=== PATIENT | female | born 1995 | race African-American/Black ===

== ENCOUNTER 2017-12-12 00:30 | Emergency (ER) | payer MEDICAID, SELFPAY ==
[2017-12-12 00:37] VITALS: BP 132/86; PULSE 89; RESP 16; TEMP 36.5; O2SAT 98
[2017-12-12 01:03] LABS: Bilirubin Small (Negative); Blood Trace-intact (Negative); Clarity Sl Cloudy; Glucose Negative (Negative); Ketones Trace mg/dL (Negative); Leukocyte Esterase Negative (Negative); Nitrite Negative (Negative); Specific Gravity >= 1.030 (1.005-1.025); Urobilinogen 0.2 EU/dL (Up TO 0.2); pH 5.5 (5-8)
[2017-12-12 01:05] LABS: HCT 34.9 % (36.0-46.0); Mean Corp. HGB Concentration 31.5 g/dL (32.0-36.0); Mean Corpuscular Volume 66.5 fL (80-95); Mean Platelet Volume 10.1 fL (8.0-11.0); Platelet Count 387 x1000/uL (130-400); RBC 5.25 m/cumm (4.00-5.20); RBC Distribution Width 18.3 % (11.7-14.6); White Blood Cell Count 12.44 k/cumm (4.4-10.8)
--- NOTE | 2017-12-12 01:12 | ED.GENADUL ---
Disposition Clinical Impression: Abdominal pain Disposition: HOME Condition: Good Instructions: Abdominal Pain (ED) Additional Instructions: You may use Tylenol or Motrin for pain if needed. Stay hydrated. Follow-up with primary care in the next few days if not better. Return to the ED if you develop fever, vomiting, worsening pain. Referrals: [facility] [Provider Group] Medical Decision Making - Lab Data Results reviewed for labs ordered during visit: Yes - Radiology Data Radiology results: report reviewed - Medical Decision Making Patient here with onset of left sided abdominal pain that appears to be more flank than anything. She does describe it to be colicky in nature. She does not have fever, nausea, vomiting, urinary symptoms. However, she does have some mild left CVAT. Consider kidney stones and will get urine, labs, and stone study. Urine test is negative. Patient's laboratory studies are unremarkable. CBC and chemistry essentially normal. Urinalysis negative for infection. CT scan negative for any acute disease. She does have some sludge in the gallbladder but her pain is all left-sided not right. She is not tender in the right upper quadrant. She does have evidence of diverticuli but no evidence of acute diverticulitis. Patient does feel better after Toradol. Patient to be discharged home to use Tylenol or Motrin as needed for pain. Follow-up with primary care in a couple days if not doing better. Return to ED for fever, vomiting, worsening pain. History of Present Illness - General Chief complaint: Abd Prob Stated complaint: DAVID Time Seen by Provider: 12/12/17 00:49 Source: patient Mode of arrival: EMS Limitations: no limitations - History of Present Illness Initial comments: [facility]. Patient reports that she was fine during the day. This evening around 8 PM she developed left-sided flank pain that she describes as colicky and pressure-like in nature. She has no associated symptoms with it. At times the pain is very intense. She has no urinary symptoms. She has no pelvic pain or vaginal complaints. She denies being . She has no history of kidney stones. - Related Data Unknown [No Known Home Meds] 12/12/17 Allergies Allergy/AdvReac Type Severity Reaction Status Date / Time No Known Allergies Allergy Unverified 12/12/17 00:36 Review of Systems Constitutional: denies: chills, diaphoresis, fever Eyes: denies: eye discharge, vision change ENT: denies: ear pain, throat pain, congestion Respiratory: denies: cough, shortness of breath Cardiovascular: denies: chest pain, syncope Gastrointestinal: abdominal pain. denies: nausea, vomiting, diarrhea Genitourinary: denies: urgency, dysuria, frequency Musculoskeletal: denies: back pain Skin: denies: rash Neurological: denies: headache, weakness, numbness Past Medical History - Past Medical History Medical history: asthma Surgical history: no surgical history - Social History Smoking status: current everyday smoker Alcohol use: none Drug use: none General Exam - General Limitations: no limitations General appearance: alert, in no apparent distress, obese - Head Head exam: Present: atraumatic, normocephalic - Eye Eye exam: Present: normal apperance - Neck Neck exam: Present: normal inspection - Respiratory Respiratory exam: Present: normal lung sounds bilaterally - Cardiovascular Cardiovascular Exam: Present: regular rate, normal rhythm, normal heart sounds - GI/Abdominal GI/Abdominal exam: Present: soft, tenderness (upper left lower quadrant into left mid flank). Absent: distended, guarding, rebound - Extremities Exam Extremities exam: Present: normal inspection. Absent: tenderness, calf tenderness - Back Exam Back exam: Present: normal inspection, CVA tenderness (L). Absent: CVA tenderness (R) - Neurological Exam Neurological exam: Present: alert, oriented X3, CN II-XII intact. Absent: motor sensory deficit - Psychiatric Psychiatric exam: Present: normal affect, normal mood - Skin Skin exam: Present: warm, dry, intact Course Vital Signs - 24 hr 08//18 00:37 Temperature 97.7 F Pulse 89 Respiratory 16 Rate Blood Pressure 132/86 Pulse Oximetry 98
--- NOTE | 2017-12-12 01:15 | DI.RPTCT_ITS ---
SYMPTOM/DIAGNOSIS: LT FLANK PAIN ABDOMEN AND PELVIC CT: CT examination of the abdomen and pelvis was performed without contrast administration. Images obtained through the lung bases are unremarkable. Liver , spleen and pancreas have an unremarkable noncontrast appearance. There appears to be cholelithiasis. No biliary dilatation is seen. Adrenals and kidneys appear normal. No evidence of hydronephrosis, nephrolithiasis or ureterolithiasis. Urinary bladder is empty. No abdominal wall hernia is seen. No abdominal or pelvic adenopathy is seen. Abdominal aorta is of normal diameter. Appendix appears normal. There is a focal area of increased fat attenuation adjacent to the colon at the descending sigmoid junction consistent with focal diverticulitis. The findings are less prominent than apparent diverticulitis identified at approximately this same site on previous CT of 06/01/17. A small quantity of free pelvic fluid noted. 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 CONCLUSION: Findings consistent with acute diverticulitis as described above.
[2017-12-12 01:18] LABS: ALT 16 U/L (12-78); AST 16 U/L (15-37); Alkaline Phosphatase 65 U/L (46-116); Anion Gap 8.1 mmol/L (3-11); BUN 9 mg/dL (7-18); Bilirubin, Total 0.1 mg/dL (0.2-1.0); CO2 23.9 mmol/L (21.0-32.0); CREATININE 0.76 mg/dL (0.55-1.02); Calcium 8.6 mg/dL (8.5-10.1); Chloride 102 mmol/L (98-107); Glucose 120 mg/dL (70-100); Potassium 3.5 mmol/L (3.5-5.1); Sodium 134 mmol/L (136-145); Total Protein 8.1 g/dL (6.4-8.2)
[2017-12-12 01:19] LABS: Lipase 87 U/L (73-393)
[2017-12-12] MEDS: Lactated Ringers 1,000 ML 1000 ML IV (01:19)
[2017-12-12] MEDS: Ketorolac 15 MG/ML VIAL 30 MG IVP (01:20)
[2017-12-12 01:22] LABS: Bacteria Few HPF (Negative); Crystals Many Calcium Oxalate HPF (Negative); Epithelial Cells Many HPF (Negative); Mucus Heavy (Negative); RBC 0-2 (0-2); WBC 0-2 HPF (0-5)
[2017-12-12 01:23] LABS: C & S Indicated? No; Casts Negative LPF (Negative)
--- NOTE | 2017-12-12 02:11 | DI.VRAD_ITS ---
EXAM: CT Abdomen and Pelvis Without Intravenous Contrast EXAM DATE/TIME: 12/12/2017 1:00 AM CLINICAL HISTORY: 22 years old, female; Pain; Abdominal pain; Flank; Left lower quadrant (llq); Patient HX: Llq and flank pain x 5 hours TECHNIQUE: Axial computed tomography images of the abdomen and pelvis without intravenous contrast. All CT scans at this facility use at least one of these dose optimization techniques: automated exposure control; mA and/or kV adjustment per patient size (includes targeted exams where dose is matched to clinical indication); or iterative reconstruction. Coronal and sagittal reformatted images were created and reviewed. COMPARISON: CT - ABD PELVIS WITH CONTRAST 06/01/2017 4:46 PM FINDINGS: Lower thorax: No acute findings. ABDOMEN: Liver: Normal. No mass. Gallbladder and bile ducts: There has been interval formation of gravel or sludge within the gallbladder. Pancreas: Normal. No ductal dilation. Spleen: Normal. No splenomegaly. Adrenals: Normal. No mass. Kidneys and ureters: Normal. No hydronephrosis. Stomach and bowel: Mild diverticulosis coli is present predominantly in the lower descending and sigmoid regions. No acute diverticulitis is detected. Appendix: No evidence of appendicitis. PELVIS: Bladder: Unremarkable as visualized. Reproductive: Unremarkable as visualized. ABDOMEN and PELVIS: Intraperitoneal space: Minimal fluid is seen in the posterior cul-de-sac thought possibly physiologic in nature. Bones/joints: No acute fracture. No dislocation. Soft tissues: Unremarkable. Vasculature: Normal. No abdominal aortic aneurysm. Lymph nodes: Normal. No enlarged lymph nodes. IMPRESSION: No acute findings are detected. Dictated and Authenticated by: Zac Her MD. Ordering:RACHEL VALENZUELA MD
[2017-12-12 02:30] VITALS: BP 133/78; PULSE 71; RESP 16; TEMP 36.6; O2SAT 99
--- NOTE | 2017-12-12 06:35 | NUR.NOTE ---
Nursing Note: Pt had been waiting in ER waiting room to catch the AM shuttle via [facility] to [place]. Received call from access that pt was waiting and the shuttle did not stop as expected. Given a voucher for a breakfast tray in the dining room, will ask for Care Managers assistance this AM in getting pt a ride home.
--- NOTE | 2017-12-12 07:06 | PDOC.ERCMPRO ---
Care Management Progress Note 12/12-Patient needs transportation home. Called [facility] [employer] and spoke with Nolberto. Nolberto stated that [facility] [employer] [facility] would be here around 8 am to transport her home. [facility] will pay for taxi. Patient is aware and will wait in the ED waiting room.
== END 2017-12-12 02:29 | disposition home or self-care (01) ==
LOC: ER 02-22 04:44
PROVIDERS: Emergency Provider Emergency Medicine; PCP Nurse Practitioner Family
DX: R10.9 Unspecified abdominal pain (principal)
CPT/HCPCS: 36415; 80053; 83690; 85027; 96361; 96374; 99284; 74176; 81003; 81015; J1885

== ENCOUNTER 2018-01-07 06:28 | Emergency (ER) | payer MEDICAID, SELFPAY ==
[2018-01-07 06:29] VITALS: BP 111/91; PULSE 100; RESP 18; TEMP 36.7; O2SAT 100
--- NOTE | 2018-01-07 06:33 | NUR.NOTE ---
pt states is supposed to take depression pills and pills for schizophrenia- has not taken these since 02/2018 when moved from [place].
--- NOTE | 2018-01-07 06:37 | DI.CT_ITS ---
SYMPTOMS/DIAGNOSIS: LT GREATER THAN RT LOWER QUAD ABD PAIN CT SCAN OF THE ABDOMEN AND PELVIS: CT abdomen and pelvis was performed following the uneventful administration of intravenous contrast material. The visualized lung bases are clear. The liver, spleen, pancreas and adrenal glands are unremarkable. There are stones seen within the gallbladder. No biliary ductal dilatation. The portal and superior mesenteric veins are patent. The kidneys are unremarkable as is the urinary bladder. The reproductive organs are unremarkable. There is a trace amount of free fluid in the cul-de-sac which is likely physiologic. There is diverticulosis of the colon but no evidence of acute diverticulitis. The bowel is unremarkable. No findings to suggest an acute appendicitis are present. A normal appendix is seen in the pelvis. No significant adenopathy or pneumoperitoneum is present. The bones appear intact. IMPRESSION: Trace amount of free fluid in the cul-de-sac which may be physiologic. Otherwise negative examination.
--- NOTE | 2018-01-07 06:38 | W.ED.GENAD ---
Discharge Plan Disposition Patient Disposition: STILL A PATIENT Condition: Improving Discharge Details Chief Complaint: Abd Prob Clinical Impression: Ovarian cyst Reason For Visit: DAVID Primary Care Provider: Chandni Finn ED Provider: Jack Paul Home Meds and New Rx's Prescriptions: No Action No Known Home Meds RF: 0 Medical Decision Making MDM Narrative Medical decision making narrative: 22-year-old female presents with the onset yesterday of lower quadrant abdominal pain and vomiting. She is afebrile, moderately tender in the abdomen. Differential diagnosis includes colitis, enteritis, ileus. Patient had IV access established, was given fluids and antiemetics, referred for laboratory testing and CT images. Initial diagnostic studies revealed a white blood cell count of 11, unremarkable chemistries, normal lipase. CT scan reveals trace free fluid and probable ovarian cyst. No other acute findings per patient had mild itching without rash after contrast infusion and was administered benadryl. She is improving with medications. Stable for discharge home. Discussed with her home management, as well as return precautions to the ER. ECG Data Attestation: I personally reviewed and interpreted this ECG (s) as follows: Interpretation: Normal sinus rhythm, the rate is 86, QRS is narrow, no ST segment elevation HPI - General Adult General Mode of arrival: EMS. Date/Time Provider Initiated Documentation: 01/07/18 06:37. Limitations to Documentation: no limitations. Information obtained by: patient. History of Present Illness described as moderate, Quality is described as aching, and is localized to the abdomen. Patient reports no radiation. Patient started experiencing this day(s) and it has been intermittent. Patient notes nausea/vomiting. Patient did receive the following treatments prior to arrival, none HPI Narrative: Abdominal pain: 22-year-old female presents with what she states is the gradual onset of lower, aching, nonradiating abdominal pain yesterday with associated intermittent episodes of nonbilious, nonbloody emesis. She did not have a fever, she denies vaginal discharge or bleeding. States she has had similar pain in the past one was my colon Related Data Home Medications Medication Instructions Recorded Confirmed Unknown [No Known Home Meds] 12/12/17 01/07/18 Allergies Allergy/AdvReac Type Severity Reaction Status Date / Time No Known Allergies Allergy Unverified 01/07/18 06:33 General Stated Complaint: Abd Prob MARIELLA: 3 Review of Systems Review of Systems 8 systems reviewed and otherwise negative PFSH Social History Smoking/Tobacco Use Status: Current every day Exam Narrative Exam Narrative: GEN: awake, alert, oriented 3. Pleasant, well groomed, interactive. HEAD: Normocephalic, atraumatic ENT: Mucous membranes moist, oropharynx unremarkable, External ear exam unremarkable EYES: PERRL, EOMI NECK: Full ROM, no RENETTA, no menigismus CHEST/RESP: Nontender, clear to auscultation bilateral, no wheeze/rhonchi/rales CARDIOVASCULAR: RRR, no murmur, rub bryan. 2+ Rad pulse bilateral ABDOMEN: Soft, mild diffuse tenderness to palpation without rebound, no mass. +Bowel sounds EXT: Full ROM, no edema, no rash Neuro: Grossly normal neurologic exam, conversant, interactive. Psych: Speech fluent, thoughts congruent, affect normal Course Vital Signs Temperature 36.7 C 01/07/18 06:29 Pulse 100 H 01/07/18 06:29 Respiratory Rate 18 01/07/18 06:29 Blood Pressure 111/91 H 01/07/18 06:29 Pulse Oximetry 100 01/07/18 06:29 Temperature 36.7 C 01/07/18 06:29 Pulse 100 H 01/07/18 06:29 Respiratory Rate 18 01/07/18 06:29 Blood Pressure 111/91 H 01/07/18 06:29 Pulse Oximetry 100 01/07/18 06:29
--- NOTE | 2018-01-07 06:43 | ED.GENADUL_ITS ---
Discharge Plan Disposition Patient Disposition: STILL A PATIENT Condition: Improving Discharge Details Chief Complaint: Abd Prob Clinical Impression: Ovarian cyst Reason For Visit: DAVID Primary Care Provider: Chandni Finn ED Provider: Jack Paul Home Meds and New Rx's Prescriptions: No Action No Known Home Meds RF: 0 Medical Decision Making MDM Narrative Medical decision making narrative: 22-year-old female presents with the onset yesterday of lower quadrant abdominal pain and vomiting. She is afebrile, moderately tender in the abdomen. Differential diagnosis includes colitis, enteritis, ileus. Patient had IV access established, was given fluids and antiemetics, referred for laboratory testing and CT images. Initial diagnostic studies revealed a white blood cell count of 11, unremarkable chemistries, normal lipase. CT scan reveals trace free fluid and probable ovarian cyst. No other acute findings per patient had mild itching without rash after contrast infusion and was administered benadryl. She is improving with medications. Stable for discharge home. Discussed with her home management, as well as return precautions to the ER. ECG Data Attestation: I personally reviewed and interpreted this ECG (s) as follows: Interpretation: Normal sinus rhythm, the rate is 86, QRS is narrow, no ST segment elevation HPI - General Adult General Mode of arrival: EMS . Date/Time Provider Initiated Documentation: 01/07/18 06:37 . Limitations to Documentation: no limitations . Information obtained by: patient . History of Present Illness described as moderate, Quality is described as aching, and is localized to the abdomen. Patient reports no radiation. Patient started experiencing this day(s) and it has been intermittent. Patient notes nausea/vomiting. Patient did receive the following treatments prior to arrival, none HPI Narrative: Abdominal pain: 22-year-old female presents with what she states is the gradual onset of lower, aching, nonradiating abdominal pain yesterday with associated intermittent episodes of nonbilious, nonbloody emesis. She did not have a fever, she denies vaginal discharge or bleeding. States she has had similar pain in the past one was my colon Related Data Home Medications Medication Instructions Recorded Confirmed Unknown [No Known Home Meds] 12/12/17 01/07/18 Allergies Allergy/AdvReac Type Severity Reaction Status Date / Time No Known Allergies Allergy Unverified 01/07/18 06:33 General Stated Complaint: Abd Prob MARIELLA: 3 Review of Systems Review of Systems 8 systems reviewed and otherwise negative PFSH Social History Smoking/Tobacco Use Status: Current every day Exam Narrative Exam Narrative: GEN: awake, alert, oriented 3. Pleasant, well groomed, interactive. HEAD: Normocephalic, atraumatic ENT: Mucous membranes moist, oropharynx unremarkable, External ear exam unremarkable EYES: PERRL, EOMI NECK: Full ROM, no RENETTA, no menigismus CHEST/RESP: Nontender, clear to auscultation bilateral, no wheeze/rhonchi/rales CARDIOVASCULAR: RRR, no murmur, rub bryan. 2+ Rad pulse bilateral ABDOMEN: Soft, mild diffuse tenderness to palpation without rebound, no mass. + Bowel sounds EXT: Full ROM, no edema, no rash Neuro: Grossly normal neurologic exam, conversant, interactive. Psych: Speech fluent, thoughts congruent, affect normal Course Vital Signs Temperature 36.7 C 01/07/18 06:29 Pulse 100 H 01/07/18 06:29 Respiratory Rate 18 01/07/18 06:29 Blood Pressure 111/91 H 01/07/18 06:29 Pulse Oximetry 100 01/07/18 06:29 Temperature 36.7 C 01/07/18 06:29 Pulse 100 H 01/07/18 06:29 Respiratory Rate 18 01/07/18 06:29 Blood Pressure 111/91 H 01/07/18 06:29 Pulse Oximetry 100 01/07/18 06:29
[2018-01-07 06:55] LABS: Abs Immature Grans 0.01 k/cumm (0.0-0.09); Absolute Basophil Count 0.02 k/cumm (0.0-0.2); Absolute Eosinophil Count 0.28 k/cumm (0.0-0.7); Absolute Monocyte Count 0.73 k/cumm (0.11-0.7); Absolute Neutrophil Count 6.94 k/cumm (1.2-6.7); Basophils % 0.2; Eosinophils % 2.5; HCT 33.2 % (36.0-46.0); HGB 10.7 g/dL (12.0-15.5); Immature Grans % 0.1; Lymphocytes % 27.5; Mean Corp. HGB Concentration 32.2 g/dL (32.0-36.0); Mean Corpuscular Hemoglobin 21.9 pg (27.0-33.0); Mean Platelet Volume 9.7 fL (8.0-11.0); Monocytes % 6.6; Neutrophils % 63.1; Platelet Count 328 x1000/uL (130-400); RBC 4.88 m/cumm (4.00-5.20); RBC Distribution Width 18.8 % (11.7-14.6)
[2018-01-07] MEDS: Ondansetron 4 MG/2 ML VIAL IVP (06:55)
[2018-01-07] MEDS: Ketorolac 30 MG/ML VIAL IVP (06:55)
[2018-01-07] MEDS: Normal Saline 1,000 ML 1000 ML IV (06:56)
[2018-01-07 06:57] LABS: Absolute Lymphocyte Count 3.03 k/cumm (1.2-3.4)
[2018-01-07 07:08] LABS: Bilirubin Negative (Negative); Blood Negative (Negative); Clarity Clear; Glucose Negative (Negative); Ketones Trace mg/dL (Negative); Leukocyte Esterase Negative (Negative); Nitrite Negative (Negative); Specific Gravity 1.025 (1.005-1.025); Urobilinogen 0.2 EU/dL (Up TO 0.2)
[2018-01-07 07:18] LABS: ALT 18 U/L (12-78); AST 12 U/L (15-37); Albumin 3.1 g/dL (3.4-5.0); Alkaline Phosphatase 81 U/L (46-116); Anion Gap 8.2 mmol/L (3-11); BUN 11 mg/dL (7-18); CO2 26.8 mmol/L (21.0-32.0); CREATININE 0.71 mg/dL (0.55-1.02); Calcium 8.6 mg/dL (8.5-10.1); Chloride 104 mmol/L (98-107); Glucose 90 mg/dL (70-100); Lipase 170 U/L (73-393); Potassium 3.9 mmol/L (3.5-5.1); Sodium 139 mmol/L (136-145)
[2018-01-07 07:20] LABS: Bilirubin, Total < 0.1 mg/dL (0.2-1.0)
[2018-01-07] MEDS: Omnipaque 350 MG/ML 100 ML BTL IJ (07:21)
[2018-01-07] MEDS: diphenhydrAMINE 50 MG/ML VIAL 25 MG IVP (07:30)
--- NOTE | 2018-01-07 07:32 | DI.VRAD_ITS ---
EXAM: CT Abdomen and Pelvis With Intravenous Contrast EXAM DATE/TIME: 01/07/2018 6:39 AM. CLINICAL HISTORY: 22 years old, female; Pain; Abdominal pain; Other: Lt greater than rt lower quad abd pain TECHNIQUE: Axial computed tomography images of the abdomen and pelvis with intravenous contrast. All CT scans at this facility use at least one of these dose optimization techniques: automated exposure control; mA and/or kV adjustment per patient size (includes targeted exams where dose is matched to clinical indication); or iterative reconstruction. Coronal and sagittal reformatted images were created and reviewed. CONTRAST: 100 mL of omni 350 administered intravenously. COMPARISON: No relevant prior studies available. FINDINGS: Lung bases: Unremarkable. No mass. No consolidation. ABDOMEN: Liver: Unremarkable. No mass. Gallbladder and bile ducts: Cholelithiasis is present without evidence for gallbladder wall thickening. No ductal dilation. Pancreas: Unremarkable. No mass. No ductal dilation. Spleen: Unremarkable. No splenomegaly. Adrenals: Unremarkable. No mass. Kidneys and ureters: Unremarkable. No solid mass. No hydronephrosis. Stomach and bowel: Unremarkable. No obstruction. No mucosal thickening. PELVIS: Appendix: No findings to suggest acute appendicitis. Bladder: Unremarkable. No mass. Reproductive: Unremarkable as visualized. ABDOMEN and PELVIS: Intraperitoneal space: Trace free fluid is present which is nonspecific but may reflect physiologic fluid or rupture of an ovarian cyst or follicle. No free air. Bones/joints: No acute fracture. No dislocation. Soft tissues: Unremarkable. Vasculature: Unremarkable. No abdominal aortic aneurysm. Lymph nodes: Unremarkable. No enlarged lymph nodes. IMPRESSION: Trace free pelvic fluid. Dictated and Authenticated by: Sina Bueno MD. Ordering:VARGAS MERAZ MD
[2018-01-07 08:22] VITALS: BP 130/84; PULSE 81; RESP 16; TEMP 37; O2SAT 100
--- NOTE | 2018-01-07 10:47 | CMPROGNOTE_ITS ---
Care Management Progress Note 01/07/18-Pt seen for abdominal pain by Dr. Nicholas Paul today. F/U within one week request sent to [facility] as Raji Finn is PCP.
== END 2018-01-07 08:17 | disposition still patient (30) ==
PROVIDERS: Emergency Provider Emergency Medicine; PCP Nurse Practitioner Family
DX: N83.209 Unspecified ovarian cyst, unspecified side (principal); R11.2 Nausea with vomiting, unspecified
CPT/HCPCS: 36415; 80053; 81025; 83690; 93005; 96361; 96374; 96375; 99285; 74177; 81003; 85025; 93010; 99284; J2405; J3490

== ENCOUNTER 2019-03-22 18:17 | Emergency (ER) | payer MEDICAID, SELFPAY ==
[2019-03-22 18:24] VITALS: BP 138/80; PULSE 84; TEMP 36.8; O2SAT 100
--- NOTE | 2019-03-22 18:48 | W.ED.GENAD ---
Discharge Plan Disposition Patient Disposition: HOME Condition: Improving Discharge Details Chief Complaint: Abd Prob Clinical Impression: Cholecystolithiasis Primary Care Provider: Chandni Finn ED Provider: Chandni Corona Home Meds and New Rx's Prescriptions: New oxycodone 5 mg capsule 5 mg PO Q6H PRN (Reason: pain) Qty: 7 RF: 0 ondansetron HCl [Zofran] 4 mg tablet 4 mg PO Q8H PRN (Reason: nausea and vomiting) Qty: 10 RF: 0 amoxicillin-pot clavulanate [Augmentin] 875-125 mg tablet 1 tab PO Q12H Qty: 20 RF: 0 Discharge Instructions Additional Instructions: Drink clear liquid only. No food or drink by mouth after midnight tomorrow. Please arrive at same-day surgery at 9 AM on March 24 Take antibiotic as prescribed. Use pain medication if needed for severe pain. This will cause drowsiness, can cause constipation, do not drive, drink alcohol, or work while taking this medication Use nausea medication as prescribed Return to the emergency room for any worsening, concerns or increase in pain sooner if needed as discussed Referrals: Sruthi Keene DO [OSTEOPATHIC DOCTOR] - Discharge Data Discharge Date/Time-TO BE ENTERED AT DEPARTURE: 03/22/19 22:30 Medical Decision Making Is a 24-year-old woman who presents to the emergency room this evening for onset of abdominal pain which began this morning. Patient reports epigastric abdominal discomfort which is sharp and very painful. Patient reports a waxing and waning quality to it but no full resolution of the pain. Patient reports several episodes of vomiting since onset of pain. Patient reports after attempting to eat or drink she has increase in her pain and vomiting. Patient denies fevers or chills. Denies associated diarrhea. Patient reports no history of similar. Patient denies recent nasal congestion, sore throat or ear pain. Patient denies significant recent alcohol ingestion. Patient denies daily medications. Denies urinary changes. On exam patient has moderate epigastric and right upper quadrant tenderness. Patient has no significant rebound. Patient has decreased bowel sounds diffusely. CT of patient's abdomen, noncontrast as patient reports allergy to IV dye in the past, ordered as well as appropriate labs. Pain management offered specifically morphine and Zofran. CT reveals FINDINGS: Lack of IV contrast does limit evaluation of the abdominal and pelvic organs. The lung bases are clear. Unenhanced liver, spleen, pancreas and adrenal glands are unremarkable. There are stones again seen in the gallbladder which is distended. No pericholecystic fluid or obvious biliary ductal dilatation is present. The kidneys, ureters and bladder are unremarkable. The reproductive organs are unremarkable. The abdominal aorta is of normal caliber. No significant abdominal or pelvic adenopathy, ascites or pneumoperitoneum is present. There is diverticulosis seen in the colon but no evidence of acute diverticulitis is seen. The remainder of the bowel is unremarkable. There is a normal appendix present. No acute osseous abnormality is identified. IMPRESSION: Cholelithiasis within a distended gallbladder. If there is concern for acute cholecystitis, ultrasound may be obtained. Patient's labs reveal mild leukocytosis with no significant electrolyte abnormalities. Normal bilirubin. No significant transaminase elevation. Given patient's right upper quadrant and epigastric pain on exam which persists through serial exams I spoke with on-call surgeon Dr. Sruthi Keene, who evaluated patient in the emergency room. She will schedule elective surgery on Sunday for reevaluation as patient's preference at this time is not to be admitted. Surgeon recommendation was Augmentin as well as pain medication and nausea medication to control symptoms until patient is able to have her gallbladder removed. The patient was stable and requested discharge. Prior to discharge, my usual and customary return precautions were reviewed with the patient - this included follow-up instructions and reasons to return to the Emergency Department if conditions worsens, does not improve as expected, or other new concerns arise. HPI General Date/Time Provider Initiated Documentation: 03/22/19 18:26. HPI Narrative: Is a 24-year-old patient presents the emergency room for abdominal pain. Patient reports she awoke this morning with epigastric discomfort. Patient reports persistent abdominal pain which is very sharp, waxes and wanes but does not entirely resolve in the upper mid abdomen. Patient does report mild radiation to the back. Patient does report a mild cough. Patient reports vomiting several times today associated with nausea. Denies changes in bowel movements. No diarrhea associated. Denies fevers, chills. Patient denies nasal congestion, sore throat or ear pain. Patient has attempted to eat several times but has continued to vomit after attempting food or fluids. Patient denies urinary urgency, frequency or dysuria. Patient denies abdominal bloating. Patient denies any obvious sick exposures, or household ill contacts. Related Data Home Medications Medication Instructions Recorded Confirmed amoxicillin-pot clavulanate 1 tab PO Q12H #20 tab 03/22/19 [Augmentin] ondansetron HCl [Zofran] 4 mg PO Q8H PRN #10 tab 03/22/19 oxycodone 5 mg PO Q6H PRN #7 cap 03/22/19 Previous Rx's Medication Instructions Recorded amoxicillin-pot clavulanate 1 tab PO Q12H #20 tab 03/22/19 [Augmentin] ondansetron HCl [Zofran] 4 mg PO Q8H PRN #10 tab 03/22/19 oxycodone 5 mg PO Q6H PRN #7 cap 03/22/19 Allergies Allergy/AdvReac Type Severity Reaction Status Date / Time iohexol [From Omnipaque] Allergy Intermediate Itching Unverified 03/22/19 18:28 General Stated Complaint: Abd Prob MARIELLA: 3 Review of Systems All systems reviewed & are unremarkable except as noted in HPI and below Constitutional Constitutional: Denies chills, Denies fatigue, Denies fever(s), Denies headache(s) and Denies malaise ENT Ears, Nose, Mouth, and Throat: Denies headache(s) Respiratory Respiratory: Reports cough, Denies pain on inspiration and Denies pain with cough Gastrointestinal Gastrointestinal: Reports abdominal pain, Denies change in stool character, Denies diarrhea, Denies loose stools, Reports nausea and Reports vomiting Genitourinary Genitourinary: Denies hematuria and Denies urinary urgency Neurologic Neurologic: Denies headache(s) Endocrine Endocrine: Denies fatigue [facility] Medical History (Updated 03/22/19 @ 23:45 by Sruthi Keene DO) Cholelithiasis with acute on chronic cholecystitis (Acute) Social History Smoking/Tobacco Use Status: Current every day Tobacco Type: cigarettes Drug use: Occasionally Substance use type: marijuana Do you feel safe in your relationship?: Yes Exam Narrative Exam Narrative: CONST: Healthy appearing patient, uncomfortable. Alert and alert. HENMT: Head nomocephalic, normal to inspection. Atraumatic. Hearing grossly normal. External ear canal no erythema or swelling. TM normal bilaterally. Nose normal to inspection. No rhinnorhea. Normal facial exam. Oral mucosa normal. Tounge normal. Dentition normal. Normal posterior oropharynx. Uvula midline. NECK: Normal visual inspection. FROM. No lymphadenopathy. Trachea midline. No Midline tenderness. CHEST: Normal insepection of the chest. RESP: Normal respiratory effort. Speaking full sentences. No cough. No wheezing. No retractions. Clear to auscaltation. Breath sound equal and present bilaterally. CARDIO: No JVD. Normal PMI. Regular Rate. Regular Rhythm. Normal peripheral pulses. GI: Normal inspection of abdomen. No distension. Soft. Moderate epigastric discomfort with palpation. Hypoactive bowel sounds in all 4 quadrants. No rebound. No gaurding. NEURO: Alert and awake. Speech clear. PSYCH: Normal affect. Cooperative. Course Vital Signs Vital signs: Vital Signs Temperature 36.8 C 03/22/19 18:24 Pulse 84 03/22/19 18:24 Blood Pressure 138/80 03/22/19 18:24 Pulse Oximetry 100 03/22/19 18:24 Temperature 36.8 C 03/22/19 18:24 Temperature Source Temporal Artery Scan 03/22/19 18:24 Pulse 84 03/22/19 18:24 Respiratory Effort Non-Labored 03/22/19 18:27 Blood Pressure 138/80 03/22/19 18:24 Blood Pressure Position Supine 03/22/19 18:24 Pulse Oximetry 100 03/22/19 18:24 Oxygen Delivery Method Room Air 03/22/19 18:24 Oxygen Flow Rate 0 03/22/19 18:24 Pain Level 10 03/22/19 18:36
[2019-03-22 18:57] LABS: Abs Immature Grans 0.02 k/cumm (0.0-0.09); Absolute Basophil Count 0.02 k/cumm (0.0-0.2); Absolute Eosinophil Count 0.39 k/cumm (0.0-0.7); Absolute Lymphocyte Count 2.62 k/cumm (1.2-3.4); Absolute Monocyte Count 0.64 k/cumm (0.11-0.7); Basophils % 0.2; Eosinophils % 3.3; HCT 37.2 % (36.0-46.0); HGB 12.2 g/dL (12.0-15.5); Immature Grans % 0.2; Lymphocytes % 22.1; Mean Corp. HGB Concentration 32.8 g/dL (32.0-36.0); Mean Corpuscular Hemoglobin 23.6 pg (27.0-33.0); Mean Corpuscular Volume 72.1 fL (80-95); Mean Platelet Volume 9.9 fL (8.0-11.0); Monocytes % 5.4; Neutrophils % 68.8; Platelet Count 380 x1000/uL (130-400); RBC 5.16 m/cumm (4.00-5.20); White Blood Cell Count 11.87 k/cumm (4.4-10.8)
[2019-03-22] MEDS: Normal Saline Flush 10 ML SYR IVP (18:57)
[2019-03-22 18:58] LABS: Absolute Neutrophil Count 8.17 k/cumm (1.2-6.7)
[2019-03-22] MEDS: Ondansetron 4 MG/2 ML VIAL IVP (18:58)
[2019-03-22] MEDS: Normal Saline 1,000 ML 1000 ML IV (19:00)
[2019-03-22 19:14] LABS: ALT 22 U/L (14-59); AST 11 U/L (15-37); Albumin 3.1 g/dL (3.4-5.0); Alkaline Phosphatase 72 U/L (46-116); Anion Gap 9.1 mmol/L (3-11); BUN 6 mg/dL (7-18); Bilirubin, Total 0.1 mg/dL (0.2-1.0); CO2 27.9 mmol/L (21.0-32.0); CREATININE 0.69 mg/dL (0.55-1.02); Calcium 8.9 mg/dL (8.5-10.1); Chloride 103 mmol/L (98-107); Glucose 100 mg/dL (74-106); Lipase 77 U/L (73-393); Potassium 3.8 mmol/L (3.5-5.1); Sodium 140 mmol/L (136-145)
[2019-03-22 19:15] LABS: Troponin I < 0.05 ng/Ml (<0.06)
[2019-03-22 19:24] LABS: Anisocytosis 1+; Hypochromasia 1+; Microcytosis 2+
[2019-03-22 19:41] LABS: Bilirubin Negative (Negative); Blood Trace-intact (Negative); Clarity Cloudy (Clear); Glucose Negative (Negative); Ketones Negative (Negative); Leukocyte Esterase Negative (Negative); Nitrite Negative (Negative); Urobilinogen 0.2 EU/dL (Up TO 0.2); pH 8.5 (5-8)
--- NOTE | 2019-03-22 19:47 | DI.CT_ITS ---
EXAM: CT ABDOMEN PELVIS WO CLINICAL HISTORY: epigastric abdominal pain and vomitting TECHNIQUE: The exam was performed according to the usual protocol without contrast. FINDINGS: Lack of IV contrast does limit evaluation of the abdominal and pelvic organs. The lung bases are clear. Unenhanced liver, spleen, pancreas and adrenal glands are unremarkable. There are stones again seen in the gallbladder which is distended. No pericholecystic fluid or obvio us biliary ductal dilatation is present. The kidneys, ureters and bladder are unremarkable. The reproductive organs are unremarkable. The abdominal aorta is of normal caliber. No significant abdominal or pelvic adenopathy, ascites or pneumoperitoneum is present. There is diverticulosis seen in the colon but no evidence of acute diverticulitis is seen. The remai nder of the bowel is unremarkable. There is a normal appendix present. No acute osseous abnormality is identified. IMPRESSION: Cholelithiasis within a distended gallbladder. If there is concern for acute cholecystitis, ultrasou nd may be obtained.
[2019-03-22 19:50] LABS: Bacteria Few HPF (Negative); C & S Indicated? No/Sq. Contamination; Crystals Negative HPF (Negative); Epithelial Cells Many HPF (Negative); Mucus Negative (Negative); RBC 0-2 HPF (0-2); WBC Negative HPF (0-5)
--- NOTE | 2019-03-22 20:18 | DI.VRAD_ITS ---
PROCEDURE INFORMATION: Exam: CT Abdomen And Pelvis Without Contrast Exam date and time: 03/22/2019 7:51 PM Age: 24 years old Clinical history: Abdominal tenderness and vomiting; Abdominal pain TECHNIQUE: Imaging protocol: Computed tomography of the abdomen and pelvis without contrast. COMPARISON: CT RENAL COLIC WO CONTRAST 12/12/2017 12:55 AM FINDINGS: Lungs: Visualized lung bases are unremarkable. Liver: Normal. No mass. Gallbladder and bile ducts: Cholelithiasis. Distended gallbladder without wall thickening or pericholecystic fluid. Pancreas: The pancreas is normal. Spleen: The spleen is normal. Adrenals: The adrenal glands are normal. Kidneys and ureters: The kidneys are normal. Stomach and bowel: Mild diverticulosis is present in the distal colon. Appendix: A normal appendix is identified. Intraperitoneal space: Unremarkable. No free air. No significant fluid collection. Vasculature: Unremarkable. No abdominal aortic aneurysm. Lymph nodes: Unremarkable. No enlarged lymph nodes. Bladder: The bladder is decompressed. Reproductive: The uterus is normal. The ovaries are normal. Bones/joints: Unremarkable. No acute fracture. Soft tissues: Unremarkable. IMPRESSION: 1. Cholelithiasis and distended gallbladder without wall thickening or pericholecystic fluid. Recommend clinical correlation and further evaluation with ultrasound if there is concern for cholecystitis. 2. Mild diverticulosis is present in the distal colon. Dictated and Authenticated by: Nestor Christie MD. Ordering:SHYLA Tariq MD
[2019-03-22] MEDS: Amoxicillin 875/Clav. 125 TAB (22:19)
[2019-03-22] MEDS: oxyCODONE 5 MG TAB (22:19)
[2019-03-22] MEDS: Ondansetron O.D.T. 4 MG TABEF (22:19)
--- NOTE | 2019-03-22 22:41 | HPE_ITS ---
Date of service: 03/22/19 Time of Service: 22:42 Assessment and Plan Assessment and plan (1) Cholelithiasis with acute on chronic cholecystitis: Status: Acute Assessment and plan: Pt has very mild cholecystitis along w/ gallstones. Will try to treat as outpt- she does not want to be hospitalized. Will do abx/pain meds/zofran. Stay on just liquids on sunday- gatorade, jello, etc. If she can't stay hydrated or has too much pain- come back to ED. she will be npo after midnight and come in sunday at 9am to same day for lap mai as outpt. Plan: The patient will be scheduled for laparoscopic cholecystectomy. The alternatives to surgery, risks, complications, and the possible need to convert to open cholecystectomy were discussed. Also bleeding, infection, pneumonia, blood clots, complications of anesthesia, damage to bowel, bladder, blood vessels, or bile ducts, liver, need for blood transfusions. Also: chronic pain, chronic diarrhea, reoccurrence of signs and symptoms, port site hernias, adhesions. All questions were answered and the patient elected to proceed with surgery. Also d/w pt dietary restrictions and warning signs of when to go to ER History of Present Illness Consults Consult date: 03/22/19 Narrative: pt woke up this am w/ RUQ pain and n/v. Couldn't get comfortable at home and came to ED. Also was continuing to rhow up. This is her first attack. She denies heartburn/indigestion. She is not on BC and never had kids. 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 labs and CT review. The pain is better/tolerable, but still present. I advised her to stay on clears for the next 24 hrs. We d/w GB sx and she would like to proceed w/ surgery. She does have mult gallstones and low grade cholecystitis. . She will go home on abx and pain meds and zofran. If she cannot keep liquids down than return to the ED. We d/w what she could expect during surgery and what it entails, and postOp cares. She denies any medical problems. She has never had surgery or anethesia in the past. She is not on any medications at this time. Review of Systems All systems reviewed & are unremarkable except as noted in HPI and below Gastrointestinal Gastrointestinal: Reports as per HPI [facility] Social History Smoking/Tobacco Use Status: Current every day Tobacco Type: cigarettes Drug use: Occasionally Substance use type: marijuana Do you feel safe in your relationship?: Yes Meds Home Medications and Allergies Home Medications Medication Instructions Recorded Confirmed Type amoxicillin-pot clavulanate 1 tab PO Q12H #20 tab 03/22/19 Rx [Augmentin] ondansetron HCl [Zofran] 4 mg PO Q8H PRN #10 tab 03/22/19 Rx oxycodone 5 mg PO Q6H PRN #7 cap 03/22/19 Rx Allergies Allergy/AdvReac Type Severity Reaction Status Date / Time iohexol [From Omnipaque] Allergy Intermediate Itching Unverified 03/22/19 18:28 Exam Const General: cooperative, healthy appearing, comfortable, no acute distress, well de veloped and well groomed Nutritional Appearance: average body habitus and well nourished Orientation: alert, awake and oriented x3 HENMT Head: normal to inspection, normocephalic and atraumatic Ears: hearing grossly normal bilaterally and external ears normal General nose exam: external nose normal Face and sinus: normal facial exam and sinuses nontender Mouth: oral mucosae normal, lip normal, tongue normal and moist mucous membranes Teeth and gingiva: dentition normal Eyes General: appearance normal, both eyes and all related structures Conjunctivae: conjunctivae normal Sclera: sclerae normal Pupils: PERRL Neck Neck: normal visual inspection and full ROM Chest Chest: normal inspection of the chest Resp Effort & Inspection: normal respiratory effort, able to speak in complete sentences, no cough, no nasal flaring, not tachypneic and no use of accessory muscles Auscultation: clear to auscultation bilaterally, no rales, no rhonchi and no wheezes Cardio Jugular venous pressure: no JVD Rate: regular rate Rhythm: regular rhythm GI Inspection: normal to inspection, no edema, non-distended, obesity and striae Palpation: soft, no masses, tender (RUQ) in the RUQ and at McBurney's point; with no rebound tenderness and No ascites Auscultation: normal bowel sounds Skin General skin exam: no rashes or lesions noted Trauma: no lacerations or abrasions Neuro General: alert, oriented x3, oriented, gait normal, moves all extremities, no focal motor deficits and CN's II-XI intact bilaterally Cognition: normal cognition Speech: speech normal Gait: normal gait Motor: muscle tone normal throughout Extrem General: normal to inspection, full ROM and no clubbing, cyanosis or edema Psych Appearance: grossly normal and well kempt Mental Status: mental status grossly normal Speech and Movement: speech and movement normal Affect: normal affect Results Labs Result diagrams: 03/22/19 18:40 03/22/19 18:40 Labs: Laboratory Results - last 24 hr 03/22/19 03/22/19 03/22/19 18:40 18:40 19:25 WBC 11.87 H RBC 5.16 Hgb 12.2 Hct 37.2 MCV 72.1 L MCH 23.6 L MCHC 32.8 RDW 18.0 H Plt Count 380 MPV 9.9 Immature Gran % 0.2 Neutrophils % 68.8 Lymphocytes % 22.1 Monocytes % 5.4 Eosinophils % 3.3 Basophils % 0.2 Absolute Neutrophils 8.17 H Absolute Lymphocytes 2.62 Absolute Monocytes 0.64 Absolute Eosinophils 0.39 Absolute Basophils 0.02 RBC Morphology See below Hypochromasia 1+ Anisocytosis 1+ Microcytosis 2+ Sodium 140 Potassium 3.8 Chloride 103 Carbon Dioxide 27.9 Anion Gap 9.1 BUN 6 L Creatinine 0.69 Estimated GFR/1.73 m2 >= 60.00 Glucose 100 Calcium 8.9 Total Bilirubin 0.1 L AST 11 L ALT 22 Alkaline Phosphatase 72 Troponin I < 0.05 Total Protein 8.0 Albumin 3.1 L Lipase 77 Urine Color Yellow Urine Clarity Cloudy Urine pH 8.5 H Ur Specific Dennison 1.020 Urine Protein Negative Urine Ketones Negative Urine Blood Trace-intact H Urine Nitrite Negative Urine Bilirubin Negative Urine Urobilinogen 0.2 Ur Leukocyte Esterase Negative Urine RBC 0-2 Urine WBC Negative Ur Epithelial Cells Many Urine Crystals Negative Urine Bacteria Few Urine Mucus Negative Ur Culture Indicated? No/sq. contamination Urine Glucose Negative Last Vital Signs Temp 36.8 C 03/22/19 18:24 Pulse 84 03/22/19 18:24 BP 138/80 03/22/19 18:24 Pulse Ox 100 03/22/19 18:24
--- NOTE | 2019-03-24 15:58 | CMPROGNOTE_ITS ---
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 Appointment was scheduled for her at [facility] on 03/25/19 at 1245. CM contacted [facility] attempted to set up transportation, [facility] states that they can not transport until they confirm no transportation in the home. CM contacted [facility] and spoke with Soledad who confirms that Lawrence does in fact qualify for transportation and does not have a vehicle or a license. CM contacted [facility] and requested the trip be scheduled and Soledad [employer] transportation also contacted [facility] to confirm and request schedule. CM contacted [facility] for transportation home this evening. Judi Cabrera is being supplied with a nebulizer through [facility], she will have prescriptions with her to fill at [facility] and she will see pcp on 03/25/19. CM will refer her to [facility] as well for community case management and access to resources.
--- NOTE | 2019-03-24 15:58 | PDOC.ERCMPRO ---
- If Service Date Differs Date of service: 03/24/19 Time of Service: 15:58 Care Management Progress Note S/O: CM met with patient in PACU, verified that she has medicaid and is able to olive picker her prescriptions at [facility] in [place]. Appointment was scheduled for her at [facility] on 03/25/19 at 1245. CM contacted [facility] attempted to set up transportation, [facility] states that they can not transport until they confirm no transportation in the home. CM contacted [facility] and spoke with Soledad who confirms that [place] does in fact qualify for transportation and does not have a vehicle or a license. CM contacted [facility] and requested the trip be scheduled and Soledad [employer] transportation also contacted [facility] to confirm and request schedule. CM contacted [facility] for transportation home this evening. Judi Cabrera is being supplied with a nebulizer through [facility], she will have prescriptions with her to fill at [facility] and she will see pcp on 03/25/19. CM will refer her to [facility] as well for community case management and access to resources.
== END 2019-03-22 22:30 | disposition home or self-care (01) ==
PROVIDERS: Emergency Provider Physician Assistant; PCP Nurse Practitioner Family
DX: R11.2 Nausea with vomiting, unspecified (principal); K80.20 Calculus of gallbladder without cholecystitis without obstruction; Z91.041 Radiographic dye allergy status
CPT/HCPCS: 36415; 80053; 81025; 83690; 96361; 96374; 96375; 96376; 99222; 99284; 74176; 81003; 81015; 84484; 85025; J2405

== ENCOUNTER 2019-03-24 08:59 | Day surgery (SDC) | payer MEDICAID, SELFPAY ==
[2019-03-24] VITALS (11 sets, daily range): BP systolic 84–121; BP diastolic 39–68; PULSE 67–97; RESP 11–25; TEMP 36.3–36.8; O2SAT 94–100
[2019-03-24] MEDS: Lactated Ringers 1,000 ML 120 ML IV (09:50)
--- NOTE | 2019-03-24 11:15 | W.PM.OP ---
Date of service: 03/24/19 Time of Service: 11:16 Operative Note Operative Note DATE OF PROCEDURE: 03/24/19 PRE-OP DIAGNOSIS: acute on chronic cholecytits and cholithiasis POST-OP DIAGNOSIS: same SURGEON: Sruthi Keene ANESTHESIA: GETA COMPLICATIONS: Other Patient was transported to: PACU Procedure Description: pt went into acute bronchospasm upon induction. Pt received albuterol and steriods. She has a hx of asthma and is a smoker, BMI 49. She had a CXR in same day and is normal. She only uses albuterol prn normally. She has not F/u w/ her PCP. Her inhaler actually belongs to someone else. Care management did find out that she does have insurance. She was given a neub machine and rx for soln and given an albuterol MDI. She was also given an Rx for prednisone for short burst. I did stress to her that she HAS to stop smoking. She has a chronic health problem and needs to f/u w/ PCP on a regular basis. Consideration for long acting inhaler steroid MDI. I did d/w the case w/ Dr. callejas and am following her recommendations as far as prednisone dosing and inhalers. prednisone 60mg po BID x 1 day. than prednisone 40mg po bidx 4 days albuteral neub q4 . and MDI rescue inhaler she has to stop smoking she should stay on a low fat diet to avoid any further exacerbation of GB Dx. return to the ED if sob, vomting, severe abdominal pain, yellow eyes.
[2019-03-24] MEDS: Acetaminophen 500 MG TAB 1000 MG PO (11:38)
[2019-03-24] MEDS: Gabapentin 300 MG CAP PO (11:38)
[2019-03-24] MEDS: ceFAZolin 2 GM/50 ML BAG IVPB (11:54)
--- NOTE | 2019-03-24 13:00 | DI.RAD_ITS ---
EXAM: XR PORTABLE CHEST AP CLINICAL HISTORY: acute bronchospasm. TECHNIQUE: 2D digital imaging was performed. COMPARISON: CHEST 2 VIEWS PA,LAT from 10/20/2017 FINDINGS: LUNGS: Clear. No pleural abnormality seen. HEART: Normal. MEDIASTINUM: Normal. OTHER FINDINGS: None. IMPRESSION: No acute pulmonary findings.
[2019-03-24] MEDS: Sodium Chloride 0.9% for Inhalation 3 ML VIAL (13:05)
[2019-03-24] MEDS: Albuterol 2.5 MG/3 ML INH SOLN VIAL UPD (13:05)
--- NOTE | 2019-03-24 14:18 | PGE_ITS ---
Date of Service Date of service: 03/24/19 Time of Service: 14:18 Assessment and Plan Assessment and plan (1) Acute bronchospasm: Status: Acute Assessment and plan: Already better. If the patient is to be discharged home today, recommend prednisone 60 mg PO BID today, then 40 mg PO daily x 4 days. No taper necessary. Needs albuterol in either inhaler form or, preferably, in a nebulizer form. I have contacted care management and respiratory therapy to see if we can help the patient be set up with a nebulizer, as well as a PCP, medical insurance, and appropriate pulmonary follow up. Would provide PPI. needs outpatient PFTs once this acute episode is better. (2) Asthma: Status: Chronic Assessment and plan: As above (3) Cholelithiasis with acute on chronic cholecystitis: Status: Acute Assessment and plan: Defer to general surgery (4) Obesity, morbid, BMI 40.0-49.9: Status: Acute Assessment and plan: Needs a formal sleep study - high suspicion for CARLITOS. Thank you for this consult! Subjective Subjective Interval history since last seen: I was asked to see the patient in a brief consultation by Dr Keene. The patient was supposed to have a cholecystectomy today, but upon intubation, had a dramatic bronchospasm, which took a while to resolve. This was treated with nebulizers, magnesium. The patient did receive ketamine as part of her anesthesia, which would have helped with her bronchospasm as well. The patient has a history of asthma, but is not on any medications due to insurance issues (prior to returning to [place], where she used to live, she lived in the [place], but could not get on medicaid there and did not have a doctor/a way to afford medications). She has had another asthma attack within the last 2 weeks and notes that the cold triggers them. She does not recall ever having PFT's. She has not seen a sugarcane research technician. She used to have a nebulizer machine in [place], but her father sold it. The last time she had an attack, the person who she refers to as her man treated her with a blue inhaler 8 times. She does not currently have a PCP or medical insurance. At the time of my conversation with her, the patient complains only of dizziness, denies chest pain, shortness of breath, abdominal pain. Exam Narrative Exam Narrative: General: obese female, A&Ox3, on room air, speaking with no respiratory distress, able to complete full sentences HEENT: EOMI, MMM Heart: RRR, no m/r/g, not tachycardic Lungs; CTAB - able to move air GI: abdomen is soft, nontender, nondistended Extremities covered with a blanket Objective Objective Clinical Data: Vital Signs Temperature 36.6 C 03/24/19 14:10 Pulse 68 03/24/19 14:10 Pulse Rhythm Regular 03/24/19 09:32 Respiratory Rate 20 03/24/19 14:10 Respiratory Depth Normal 03/24/19 09:32 Blood Pressure 121/65 03/24/19 14:10 Pulse Oximetry 99 03/24/19 14:10 Oxygen Delivery Method Room Air 03/24/19 14:10 Oxygen Flow Rate 10 03/24/19 13:25 Pain Level 0 03/24/19 14:10 Intake & Output 03/23/19 03/24/19 03/24/19 23:59 11:59 23:59 Intake Total 716.667 / 716.667 Balance 716.667 / 716.667 Weight 115.5 kg Intake: IV 716.667 / 716.667 Other: Emesis Description None Objective Narrative Objective Narrative: CXR: No acute pulmonary findings.
--- NOTE | 2019-03-24 14:56 | W.PM.DSUDISC ---
Discharge Plan Disposition Patient Disposition: HOME Condition: Good Discharge Details Reason For Visit: ACUTE CHRONIC GALLBLADDER Attending Provider: Sruthi Keene Primary Care Provider: Chandni Finn Home Meds and New Rx's Prescriptions: New prednisone 20 mg tablet 60 mg PO BID 1 Days Qty: 6 RF: 0 prednisone 20 mg tablet 40 mg PO BID 4 Days Qty: 16 RF: 0 albuterol sulfate 2.5 mg /3 mL (0.083 %) solution for nebulization 2.5 mg IH Q4H PRN (Reason: shortness of breath or wheezing) Qty: 180 RF: 0 Discontinued oxycodone 5 mg capsule 5 mg PO Q6H PRN (Reason: pain) Qty: 7 RF: 0 ondansetron HCl [Zofran] 4 mg tablet 4 mg PO Q8H PRN (Reason: nausea and vomiting) Qty: 10 RF: 0 amoxicillin-pot clavulanate [Augmentin] 875-125 mg tablet 1 tab PO Q12H Qty: 20 RF: 0 Discharge Instructions Additional Instructions: It's helpful to know a little background: The gallbladder collects bile, a fluid that is produced by the liver, and releases it when you eat to aid the breakdown and absorption of fat. Between meals, bile collects in the gallbladder and is concentrated. When the gallbladder is removed, bile is less concentrated and it drains continuously into the intestine. This affects digestion of fat and fat-soluble vitamins. How much of a problem it is varies from person to person. With time, the body often adjusts and becomes better at digesting fatty foods. The amount of fat eaten at one time also factors into the equation. Smaller amounts of fat are easier to digest. On the other hand, large amounts can remain undigested and cause gas, bloating and diarrhea. ? Eat smaller, more frequent meals. This may ensure a better mix with available bile. Include small amounts of lean protein, such as poultry, fish and nonfat dairy, at every meal, along with vegetables, fruit and whole grains. ? Go easy on fat. Avoid high-fat foods, fried and greasy foods, and fatty sauces and gravies. Instead, choose nonfat or low-fat foods. Read labels and look for foods with 3 grams of fat or less a serving. ? Gradually increase the fiber in your diet. This can help normalize bowel movements by reducing incidents of diarrhea or constipation. However, it can also make gas and cramping worse. The best approach is to slowly increase the amount of fiber in your diet over a period of weeks. ? Be aware that after gallbladder surgery some people find that the following are difficult to digest: caffeinated beverages and dairy products. Talk with your doctor if your symptoms are severe, don't diminish, continue over time or if you lose weight and become weak. Foods to Avoid While your body adjusts, it's a good idea to avoid high-fat foods for a few weeks after having gallbladder surgery. High-fat foods include: ? Foods that are fried, like Khmer fries and potato chips ? High-fat meats, such as rojas, bologna, sausage, ground beef, and ribs, pork products ? High-fat dairy products, such as cheese, ice cream, cream, whole milk, and sour cream ? Pizza ? Foods made with lard or butter ? Creamy soups or sauces ? Meat gravies ? Chocolate ? Oils, such as palm and coconut oil ? Skin of chicken or turkey High-fiber and gas-producing foods can also cause some people discomfort after gallbladder surgery, so you may want to introduce them slowly back into your diet. These include: ? Cereals ? Whole-grain breads ? Nuts ? Seeds ? Legumes ? [place] sprouts ? Broccoli ? Cauliflower ? Cabbage Spicy foods may also cause some gastrointestinal symptoms for a short time after gallbladder removal. You need to F/u w/ [place] [facility] on 03/25 at 12:45 on Sunday. You do insurance!! please get your prescriptions filled at [facility] in [place] TODAY -Stay on a low fat diet until surgery: No PORK/lard/nuts or nut butters. No fried foods or fast foods. see list above -take your prednisone as directed adn use the albuterol inhaler STOP Smoking! This is extremely important to prevent any further asthma attacks. -F/u w/ Dr. Keene in 2 wks time. -If you have severe abdominal pain, yellow eyes, can't stop vomiting, or get very SOB/can't breathe- return to the ED. Activity:: Activity as Tolerated Remove Dressings/Wound Care:: 24 hours Shower/Bathe:: 24 hours Diet:: low fat diet- see above Discharge Orders Discharge Orders: Discharge Order (Routine); Ordered 03/24/19 Ordered By: Sruthi Keene Other Ambulatory Orders: PFT ([facility]) (Outpt) (ONCE) Timeframe: [id number] Facility: [facility] - Location: Respiratory Therapy Ordered By: Payton Reddy DS: Diagnosis Discharge Diagnosis (1) Acute bronchospasm: Status: Acute (2) Asthma: Status: Chronic (3) Cholelithiasis with acute on chronic cholecystitis: Status: Acute (4) Obesity, morbid, BMI 40.0-49.9: Status: Acute
== END 2019-03-24 16:38 | disposition home or self-care (01) ==
PROVIDERS: PCP Nurse Practitioner Family; Visit Provider Surgery
PROC: 0FT44ZZ Resection of Gallbladder, Percutaneous Endoscopic Approach (ICD-10-PCS; CPT 47562; principal; 2019-03-24 10:45)
DX: K80.12 Calculus of gallbladder with acute and chronic cholecystitis without obstruction (principal); Z53.09 Procedure and treatment not carried out because of other contraindication; J45.901 Unspecified asthma with (acute) exacerbation; F17.210 Nicotine dependence, cigarettes, uncomplicated; E66.01 Morbid (severe) obesity due to excess calories; Z68.42 Body mass index [BMI] 45.0-49.9, adult
CPT/HCPCS: 47562; 81025; 99232; 71045; 99204; J0690; J1100; J7613

== ENCOUNTER 2019-05-12 09:23 | Emergency (ER) | payer MEDICAID, SELFPAY ==
[2019-05-12 09:28] VITALS: BP 134/84; PULSE 74; RESP 16; TEMP 36.5; O2SAT 100
--- NOTE | 2019-05-12 09:37 | ED.GENADUL_ITS ---
Discharge Plan Disposition Patient Disposition: HOME Condition: Stable Discharge Details Chief Complaint: RespSymp Clinical Impression: Asthma Primary Care Provider: Chandni Finn ED Provider: Brenton Walsh Home Meds and New Rx's Prescriptions: New prednisone 20 mg tablet 60 mg PO DAILY 4 Days Qty: 12 RF: 0 doxycycline hyclate 100 mg tablet 100 mg PO BID Qty: 14 RF: 0 Continued Flovent HFA 110 mcg/actuation Hfa Aerosol Inhaler INHALATION PRNRF: 0 albuterol sulfate 2.5 mg /3 mL (0.083 %) solution for nebulization 2.5 mg IH Q4H PRN (Reason: shortness of breath or wheezing) Qty: 180 RF: 0 Discharge Instructions Instructions: Asthma (ED) Additional Instructions: follow up with your primary care provider within 1 week if you feel more ill, have worsening shortness of breath return to the emergency department Medical Decision Making 24 yo female with hx of asthma who comes in with chest tightness, cough productive of blood streaked sputum and dyspnea for 3 days. Denies fevers or recent travel. Denies radiation of pain/tightness or increased symptoms with exertion. She is in no distress on exm speaking in full sentences with intermittent cough. Has wheezing at the bases bilaterally on exam otherwise clear lungs. Suspect likely asthma with uri vs pna. will obtain labs and xray. Heart score is 1, will send troponin. No tearing back pain so doubt dissection and normal vascular exam. She has a wells score that's low, given hemoptysis can't use perc to exclude PE, will send d dimer pt feels better and lungs clear and labs/imaging unremarkable. Given the blood streaked sputum will start on abx and steroids for her asthma and have her f/u with pcp and return precautions given Differential Diagnosis Differential Diagnosis: pna, bronchitis, PE Medical Records Medical records reviewed: Yes I reviewed the patient's medical records. Imaging Data Radiologic Study: Attestation: I personally reviewed and interpreted this imaging study as follows: Imaging: X-Ray Radiologist's impression: no acute findings Lab Data Lab results reviewed: Yes I reviewed the patient's lab results. ECG Data Attestation: I personally reviewed and interpreted this ECG (s) as follows: Prior ECG tracings: not available for review Interpretation: sinus rhythm, rate of 74, pr 136, no acute st t wave ischemic findings HPI General Mode of arrival: ambulatory . Date/Time Provider Initiated Documentation: 05/12/19 09:24 . Limitations to Documentation: no limitations . Information obtained by: patient . History of Present Illness 24 year old F presents to the emergency department with the chief complaint of chest tightness, described as moderate, Patient started experiencing this day(s) (3) and it has been constant. No relieving factors improve symptom(s), No exacerbating factors reported . Patient notes cough. Related Data Home Medications Medication Instructions Recorded Confirmed albuterol sulfate 2.5 mg IH Q4H PRN #180 ml 03/24/19 05/12/19 Flovent HFA INHALATION PRN 05/12/19 doxycycline hyclate 100 mg PO BID #14 tab 05/12/19 prednisone 60 mg PO DAILY 4 Days #12 tab 05/12/19 Previous Rx's Medication Instructions Recorded albuterol sulfate 2.5 mg IH Q4H PRN #180 ml 03/24/19 doxycycline hyclate 100 mg PO BID #14 tab 05/12/19 prednisone 60 mg PO DAILY 4 Days #12 tab 05/12/19 Allergies Allergy/AdvReac Type Severity Reaction Status Date / Time iohexol [From Omnipaque] Allergy Intermediate Itching Unverified 05/12/19 09:31 General Stated Complaint: RespSymp MARIELLA: 3 Review of Systems All systems reviewed & are unremarkable except as noted in HPI and below Constitutional Constitutional: Denies chills and Denies fever(s) Cardiovascular Cardiovascular: Reports dyspnea Respiratory Respiratory: Reports cough and Reports dyspnea Gastrointestinal Gastrointestinal: Denies abdominal pain, Denies nausea and Denies vomiting Genitourinary Genitourinary: Denies dysuria Musculoskeletal Musculoskeletal: Denies joint swelling Integumentary/Breasts Skin/Breast: Denies rash Psychiatric Psychiatric: Denies depression [facility] Medical History (Updated 03/24/19 @ 14:38 by Payotn Reddy MD) Asthma (Chronic) Cholelithiasis with acute on chronic cholecystitis (Acute) History of diverticulitis (Acute) History of sleep disorder (Acute) Hx of schizophrenia (Acute) Social History Smoking/Tobacco Use Status: Current every day Tobacco Type: cigarettes Alcohol Intake: never Drug use: Occasionally Substance use type: marijuana Details: marijuana: 03/21/19, small pipe Do you feel safe at home: Yes Do you feel safe in your relationship?: Yes Additional Social history: pt. 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 Exam Const General: no acute distress Orientation: alert HENMT Head: normal to inspection Ears: external ears normal General nose exam: external nose normal Mouth: moist mucous membranes Eyes General: appearance normal, both eyes and all related structures Neck Neck: normal visual inspection Resp Effort & Inspection: normal respiratory effort and able to speak in complete sentences Cardio Rate: regular rate Skin General skin exam: no rashes or lesions noted Neuro General: alert and oriented x3 Extrem General: normal to inspection Psych Mental Status: mental status grossly normal Course Vital Signs Vital signs: Vital Signs Temperature 36.5 C 05/12/19 09:28 Pulse 74 05/12/19 09:28 Respiratory Rate 16 05/12/19 09:28 Blood Pressure 134/84 05/12/19 09:28 Pulse Oximetry 100 05/12/19 09:28 Temperature 36.5 C 05/12/19 09:28 Temperature Source Skin 05/12/19 09:28 Pulse 74 05/12/19 09:28 Respiratory Rate 16 05/12/19 09:28 Respiratory Effort Non-Labored 05/12/19 09:28 Blood Pressure 134/84 05/12/19 09:28 Blood Pressure Position Sitting 05/12/19 09:28 Pulse Oximetry 100 05/12/19 09:28 Oxygen Delivery Method Room Air 05/12/19 09:28 Oxygen Flow Rate 0 05/12/19 09:28 Pain Level 0 05/12/19 09:28
[2019-05-12] MEDS: methylPREDNISolone SUCC 125 MG VIAL IVP (09:51)
[2019-05-12] MEDS: Normal Saline Flush 10 ML SYR IVP (09:52)
[2019-05-12 09:55] VITALS: PULSE 74; RESP 16; RESP 7; O2SAT 100
[2019-05-12] MEDS: Albuterol/Ipratropium 3 ML UPD VIAL UPD (09:55)
[2019-05-12 09:58] LABS: Abs Immature Grans 0.01 k/cumm (0.0-0.09); Absolute Basophil Count 0.01 k/cumm (0.0-0.2); Absolute Eosinophil Count 0.51 k/cumm (0.0-0.7); Absolute Lymphocyte Count 2.35 k/cumm (1.2-3.4); Absolute Monocyte Count 0.48 k/cumm (0.11-0.7); Absolute Neutrophil Count 4.38 k/cumm (1.2-6.7); Basophils % 0.1; Eosinophils % 6.6; HCT 36.3 % (36.0-46.0); HGB 11.9 g/dL (12.0-15.5); Immature Grans % 0.1 %; Lymphocytes % 30.4; Mean Corp. HGB Concentration 32.8 g/dL (32.0-36.0); Mean Corpuscular Hemoglobin 23.8 pg (27.0-33.0); Mean Corpuscular Volume 72.7 fL (80-95); Mean Platelet Volume 10.2 fL (8.0-11.0); Monocytes % 6.2; Neutrophils % 56.6; Platelet Count 318 x1000/uL (130-400); RBC 4.99 m/cumm (4.00-5.20); RBC Distribution Width 16.8 % (11.7-14.6); White Blood Cell Count 7.74 k/cumm (4.4-10.8)
[2019-05-12 10:13] LABS: ALT 17 U/L (14-59); AST 14 U/L (15-37); Albumin 3.3 g/dL (3.4-5.0); Alkaline Phosphatase 67 U/L (46-116); Anion Gap 10.9 mmol/L (3-11); BUN 9 mg/dL (7-18); Bilirubin, Total 0.1 mg/dL (0.2-1.0); CO2 23.1 mmol/L (21.0-32.0); CREATININE 0.52 mg/dL (0.55-1.02); Calcium 9.1 mg/dL (8.5-10.1); Chloride 104 mmol/L (98-107); Glucose 91 mg/dL (74-106); Magnesium 1.8 mg/dL (1.8-2.4); Potassium 4.2 mmol/L (3.5-5.1); Sodium 138 mmol/L (136-145); Total Protein 7.9 g/dL (6.4-8.2)
[2019-05-12 10:14] LABS: Troponin I < 0.05 ng/Ml (<0.06)
[2019-05-12 10:23] LABS: Anisocytosis 1+; Diff Comment Diff Reviewed; Hypochromasia 2+
[2019-05-12 10:24] LABS: Microcytosis 2+; Poikilocytes 1+
--- NOTE | 2019-05-12 10:28 | DI.RAD_ITS ---
EXAM: XR CHEST 2V PA LATERAL XR CHEST 2V PA LATERAL CLINICAL HISTORY: chest pain chest pain TECHNIQUE: 2D digital imaging was performed. COMPARISON: XR PORTABLE CHEST AP from 03/24/2019 FINDINGS: The heart is not enlarged. The lungs are clear and well expanded. No pleural effusion seen. Mediastin al contours appear intact. IMPRESSION: Normal chest
[2019-05-12 10:29] LABS: D-Dimer 229 ng/mlFEU (<500)
[2019-05-12 10:45] VITALS: BP 102/49; PULSE 65; RESP 20; TEMP 36.6; O2SAT 100
[2019-05-12 11:08] VITALS: BP 102/49; PULSE 65; RESP 20; TEMP 36.6; O2SAT 100
--- NOTE | 2019-05-13 10:38 | NUR.NOTE ---
Referral faxed to PCP for follow up. Dione villegas.
== END 2019-05-12 11:10 | disposition home or self-care (01) ==
PROVIDERS: Emergency Provider Emergency Medicine; PCP Nurse Practitioner Family
DX: J45.909 Unspecified asthma, uncomplicated (principal); R06.00 Dyspnea, unspecified; R04.2 Hemoptysis
CPT/HCPCS: 36415; 80053; 81025; 87449; 93005; 94640; 96374; 99285; 71046; 83735; 84484; 85025; 85379; 93010; 99284; J2930; J7620

== ENCOUNTER 2019-05-20 21:48 | Outpatient (REF) | payer MEDICAID, SELFPAY ==
[2019-05-20 22:10] LABS: Abs Immature Grans 0.01 k/cumm (0.0-0.09); Absolute Basophil Count 0.02 k/cumm (0.0-0.2); Absolute Eosinophil Count 0.38 k/cumm (0.0-0.7); Absolute Lymphocyte Count 2.65 k/cumm (1.2-3.4); Absolute Monocyte Count 0.55 k/cumm (0.11-0.7); Absolute Neutrophil Count 5.51 k/cumm (1.2-6.7); Basophils % 0.2; Eosinophils % 4.2; HCT 36.2 % (36.0-46.0); HGB 11.7 g/dL (12.0-15.5); Immature Grans % 0.1 %; Lymphocytes % 29.1; Mean Corp. HGB Concentration 32.3 g/dL (32.0-36.0); Mean Corpuscular Hemoglobin 23.6 pg (27.0-33.0); Mean Corpuscular Volume 73.1 fL (80-95); Mean Platelet Volume 11.1 fL (8.0-11.0); Neutrophils % 60.4; Platelet Count 321 x1000/uL (130-400); RBC 4.95 m/cumm (4.00-5.20); RBC Distribution Width 17.1 % (11.7-14.6); White Blood Cell Count 9.12 k/cumm (4.4-10.8)
[2019-05-20 22:25] LABS: Anisocytosis 1+; Diff Comment RBC Morph Reviewed; Hypochromasia 1+; Microcytosis 2+
[2019-05-20 22:43] LABS: Hemoglobin A1C 5.9 % (3.8-5.6)
[2019-05-20 23:02] LABS: Iron 16 ug/dL (50-170); Total Iron Binding Capacity 355 ug/dL (250-450); Transferrin Sat 5 % (15-50)
[2019-05-20 23:23] LABS: ALT 17 U/L (14-59); AST 9 U/L (15-37); Albumin 3.2 g/dL (3.4-5.0); Alkaline Phosphatase 72 U/L (46-116); Anion Gap 10.7 mmol/L (3-11); BUN 9 mg/dL (7-18); Bilirubin, Total 0.1 mg/dL (0.2-1.0); CO2 24.3 mmol/L (21.0-32.0); CREATININE 0.57 mg/dL (0.55-1.02); Calcium 8.7 mg/dL (8.5-10.1); Calculated LDL 92 mg/dL (<100); Chloride 104 mmol/L (98-107); Cholesterol 150 mg/dL (<200); Glucose 91 mg/dL (74-106); HDL Cholesterol 42 mg/dL (40-60); Magnesium 1.8 mg/dL (1.8-2.4); Sodium 139 mmol/L (136-145); TSH (W/Ref FT4) 0.64 uIU/mL (0.36-3.74); Triglyceride 83 mg/dL (<150); Vitamin B12 414 pg/mL (193-986)
== END 2019-05-20 22:08 ==
LOC: NCHCN 21:48
PROVIDERS: PCP Nurse Practitioner Family; Visit Provider Nurse Practitioner Family
DX: R53.83 Other fatigue (principal); D50.9 Iron deficiency anemia, unspecified; R06.02 Shortness of breath; R06.83 Snoring; R06.01 Orthopnea; K30 Functional dyspepsia
CPT/HCPCS: 80053; 80061; 82607; 83036; 83540; 83550; 83735; 84443; 85025

== ENCOUNTER 2019-06-01 07:34 | Emergency (ER) | payer SELFPAY ==
[2019-06-01 07:35] VITALS: BP 127/74; PULSE 68; RESP 16; TEMP 36.6; O2SAT 100
[2019-06-01 08:08] LABS: Bilirubin Small (Negative); Blood Large (Negative); Glucose Negative (Negative); Ketones 40 mg/dL (Negative); Leukocyte Esterase Negative (Negative); Nitrite Negative (Negative); Specific Gravity >= 1.030 (1.005-1.025); Urobilinogen 0.2 EU/dL (Up TO 0.2)
[2019-06-01 08:10] LABS: Clarity Cloudy (Clear)
--- NOTE | 2019-06-01 08:15 | W.ED.GENAD ---
Discharge Plan Disposition Patient Disposition: HOME Condition: Good Discharge Details Chief Complaint: Nk/Back Pain Clinical Impression: Gastroenteritis, Back pain Primary Care Provider: Chandni Finn ED Provider: Erin Bradford Home Meds and New Rx's Prescriptions: New methocarbamol 500 mg tablet 500 mg PO Q6H PRN (Reason: muscle spasm) Qty: 14 RF: 0 ondansetron 4 mg tablet,disintegrating 4 mg PO TID PRN (Reason: nausea and vomiting) Qty: 6 RF: 0 Continued Flovent HFA 110 mcg/actuation Hfa Aerosol Inhaler INHALATION PRNRF: 0 albuterol sulfate 2.5 mg /3 mL (0.083 %) solution for nebulization 2.5 mg IH Q4H PRN (Reason: shortness of breath or wheezing) Qty: 180 RF: 0 Discharge Instructions Instructions: Gastroenteritis (ED), Back Pain (ED) Additional Instructions: Take Zofran as needed and directed for nausea and vomiting. Alternate tylenol and motrin as needed and directed for pain. You can also purchase [id number] lidocaine patches to use as needed and directed for pain. You were also given a prescription for muscle relaxer to take as needed and directed for pain. Alternate ice and heat to the affected area(s) several times daily for 20 minutes at a time. Follow-up with your primary care doctor in 1 week. Return to the emergency department with any worsening or new concerning symptoms. Stand Alone Forms: Work Release Discharge Data Discharge Date/Time-TO BE ENTERED AT DEPARTURE: 06/01/19 10:23 Discharge Physician: Erin Bradford Medical Decision Making 0810 -- 24-year-old female with a history of gallstones, asthma, anxiety, depression, schizophrenia and prediabetes presents with mid to lower back pain, vomiting and diarrhea since yesterday. 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 She does state that she was using a shovel yesterday to break up ice and is unsure if she strained her back doing this. She states the mid to lower back pain is worse with any movement. She has taken Tylenol without relief. She does also admit to multiple episodes of vomiting and a few episodes of diarrhea since yesterday. She does also admit to dysuria. She states the vomitus is food or bile and the diarrhea is watery and brown. She denies any abdominal pain, saddle anesthesia, paresthesias, bowel or bladder incontinence or leg weakness. She states she is currently on her menses. Patient appears uncomfortable. She has tenderness to palpation of her paraspinal mid to lower back. No focal deficits. She does also have epigastric, right upper quadrant and left upper quadrant tenderness. Her abdomen is soft without rigidity. Differential diagnosis includes back strain, kidney stone, UTI, cholelithiasis, cholecystitis, gastritis, gastroenteritis, GERD, peptic ulcer disease, colitis. Will place an IV, bolus IV fluids, screening labs, urinalysis, urine and CT renal colic. Will give a dose of Toradol and Zofran and reassess. 1020 --labs and imaging reviewed and unremarkable. Normal white blood cell count, electrolytes and lipase. Urine noted large amount of blood but no obvious infection. CT noted gallstones but no kidney stone or other acute process. Patient was also given a dose of Valium and Lidoderm patch and admitted to significant improvement in pain and is requesting to go home. Discussed with patient that she likely could have a GI virus that is causing somato-visceral pain. She was advised to drink plenty of fluids, alternate Tylenol and Motrin, and follow-up with her PCP. She was given a prescription for Robaxin and Zofran. Usual and customary return precautions given prior to discharge. Medical Records Medical records reviewed: Yes I reviewed the patient's medical records. Imaging Data Radiologic Study: Radiologist's impression: CT Abdomen And Pelvis Without Contrast Exam date and time: 06/01/2019 8:14 AM Age: 24 years old Clinical indication: Other: Mid to lower back pain; Ruq pain/vomiting/diarrhea, R/O gallstones/cholecystitis/kidney stones/colitis TECHNIQUE: Imaging protocol: Computed tomography of the abdomen and pelvis without contrast. Radiation optimization: All CT scans at this facility use at least one of these dose optimization techniques: automated exposure control; mA and/or kV adjustment per patient size (includes targeted exams where dose is matched to clinical indication); or iterative reconstruction. COMPARISON: CT ABDOMEN PELVIS WO 03/22/2019 7:47 PM FINDINGS: Liver: Normal. No mass. Gallbladder and bile ducts: Cholelithiasis. Pancreas: Normal. No ductal dilation. Spleen: Normal. No splenomegaly. Adrenals: Normal. No mass. Kidneys and ureters: No obstructive uropathy or renal calculus. Stomach and bowel: Colonic diverticulosis without CT evidence of diverticulitis. Appendix: No evidence of appendicitis. Intraperitoneal space: Unremarkable. No free air. No significant fluid collection. Vasculature: Unremarkable. No abdominal aortic aneurysm. Lymph nodes: Unremarkable. No enlarged lymph nodes. Bladder: Unremarkable as visualized. Reproductive: Unremarkable as visualized. Bones/joints: Unremarkable. No acute fracture. Soft tissues: Unremarkable. IMPRESSION: 1. Cholelithiasis. 2. No obstructive uropathy or renal calculus. 3. Colonic diverticulosis without CT evidence of diverticulitis. Lab Data Lab results reviewed: Yes I reviewed the patient's lab results. Labs: Laboratory Tests Range/Units 06/01/19 06/01/19 06/01/19 08:00 08:20 08:20 WBC (4.4-10.8) k/cumm 5.92 RBC (4.00-5.20) m/cumm 5.04 Hgb (12.0-15.5) g/dL 12.1 Hct (36.0-46.0) % 36.6 MCV (80-95) fL 72.6 L MCH (27.0-33.0) pg 24.0 L MCHC (32.0-36.0) g/dL 33.1 RDW (11.7-14.6) % 16.8 H Plt Count (130-400) x1000/uL 334 MPV (8.0-11.0) fL 10.0 Immature Gran % % 0.2 Neutrophils % 58.4 Lymphocytes % 29.9 Monocytes % 7.3 Eosinophils % 3.9 Basophils % 0.3 Absolute Neutrophils (1.2-6.7) k/cumm 3.46 Absolute Lymphocytes (1.2-3.4) k/cumm 1.77 Absolute Monocytes (0.11-0.7) k/cumm 0.43 Absolute Eosinophils (0.0-0.7) k/cumm 0.23 Absolute Basophils (0.0-0.2) k/cumm 0.02 Differential Comment Rbc morph reviewed RBC Morphology See below Hypochromasia 1+ Poikilocytosis 2+ Anisocytosis 1+ Microcytosis 2+ Sodium (136-145) mmol/L 140 Potassium (3.5-5.1) mmol/L 4.1 Chloride (98-107) mmol/L 106 Carbon Dioxide (21.0-32.0) mmol/L 24.3 Anion Gap (3-11) mmol/L 9.7 BUN (7-18) mg/dL 10 Creatinine (0.55-1.02) mg/dL 0.67 Estimated GFR/1.73 m2 (mL/min/1.73m2) >= 60.00 Glucose (74-106) mg/dL 82 Calcium (8.5-10.1) mg/dL 8.5 Total Bilirubin (0.2-1.0) mg/dL 0.2 AST (15-37) U/L 25 ALT (14-59) U/L 22 Alkaline Phosphatase (46-116) U/L 66 Total Protein (6.4-8.2) g/dL 7.5 Albumin (3.4-5.0) g/dL 3.3 L Lipase (73-393) U/L 68 Urine Color (Yellow) Yellow Urine Clarity (Clear) Cloudy Urine pH (5-8) 6.0 Ur Specific Fork (1.005-1.025) >= 1.030 H Urine Protein (Negative) mg/dL 100 H Urine Ketones (Negative) mg/dL 40 H Urine Blood (Negative) Large H Urine Nitrite (Negative) Negative Urine Bilirubin (Negative) Small H Urine Urobilinogen (Up TO 0.2) EU/dL 0.2 Ur Leukocyte Esterase (Negative) Negative Urine RBC (0-2) HPF >50 H Urine WBC (0-5) HPF Negative Ur Epithelial Cells (Negative) HPF Moderate Urine Crystals (Negative) HPF Negative Urine Bacteria (Negative) HPF Moderate Urine Casts (Negative) LPF Negative Urine Mucus (Negative) Moderate Ur Culture Indicated? No Urine Glucose (Negative) mg/dL Negative HPI General Mode of arrival: ambulatory. Date/Time Provider Initiated Documentation: 06/01/19 07:50. Limitations to Documentation: no limitations. Information obtained by: patient. History of Present Illness 24 year old F presents to the emergency department with the chief complaint of Mid to lower back pain, vomiting and diarrhea, Quality is described as aching and constant, and is localized to the back. Patient reports no radiation. Patient started experiencing this day(s) (1) and it has been constant. other things that improve symptom(s), (remaining still ) Movement worsens symptoms . Patient notes nausea/vomiting; denies confusion, chest pain, cough, diaphoresis, fever/chills, headaches, loss of appetite, malaise, rash, seizure, shortness of breath, syncope and weakness. Patient did receive the following treatments prior to arrival, other (Tylenol 3 hours ago) Related Data Home Medications Medication Instructions Recorded Confirmed albuterol sulfate 2.5 mg IH Q4H PRN #180 ml 03/24/19 06/01/19 Flovent HFA INHALATION PRN 05/12/19 methocarbamol 500 mg PO Q6H PRN #14 tab 06/01/19 ondansetron 4 mg PO TID PRN #6 tab 06/01/19 Previous Rx's Medication Instructions Recorded albuterol sulfate 2.5 mg IH Q4H PRN #180 ml 03/24/19 methocarbamol 500 mg PO Q6H PRN #14 tab 06/01/19 ondansetron 4 mg PO TID PRN #6 tab 06/01/19 Allergies Allergy/AdvReac Type Severity Reaction Status Date / Time iohexol [From Omnipaque] Allergy Intermediate Itching Unverified 06/01/19 07:41 General Stated Complaint: Nk/Back Pain MARIELLA: 4 Review of Systems All systems reviewed & are unremarkable except as noted in HPI and below Constitutional Constitutional: Reports as per HPI, Denies chills and Denies fever(s) Eyes Eyes: Denies blurry vision ENT Ears, Nose, Mouth, and Throat: Denies dizziness, Denies sore throat and Denies throat swelling Cardiovascular Cardiovascular: Denies chest pain and Denies dyspnea Respiratory Respiratory: Denies cough and Denies dyspnea Gastrointestinal Gastrointestinal: Denies abdominal pain, Denies diarrhea and Denies vomiting Genitourinary Genitourinary: Denies hematuria and Denies dysuria Musculoskeletal Musculoskeletal: Denies back pain and Denies numbness Integumentary/Breasts Skin/Breast: Denies lesions and Denies rash Neurologic Neurologic: Denies dizziness, Denies focal weakness and Denies numbness Allergic/Immunologic Allergic/Immunologic: Denies throat swelling [facility] [place] Medical History Asthma (Chronic) Cholelithiasis with acute on chronic cholecystitis (Acute) History of diverticulitis (Acute) History of sleep disorder (Acute) Hx of schizophrenia (Acute) Social History Smoking/Tobacco Use Status: Current every day Tobacco Type: cigarettes Alcohol Intake: never Drug use: Occasionally Substance use type: marijuana Details: marijuana: 03/21/19, small pipe Do you feel safe at home: Yes Do you feel safe in your relationship?: Yes Additional Social history: pt. 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 Exam Const General: cooperative, healthy appearing and no acute distress HENMT Head: normal to inspection Face and sinus: normal facial exam Eyes General: appearance normal, both eyes and all related structures EOM: EOM intact bilaterally Neck Neck: normal visual inspection and No submandibular swelling Lymphatic: no lymphadenopathy noted Chest Chest: normal inspection of the chest and no tenderness Resp Effort & Inspection: normal respiratory effort and able to speak in complete sentences Auscultation: clear to auscultation bilaterally Cardio Rate: regular rate Rhythm: regular rhythm GI Inspection: normal to inspection Palpation: soft, not firm, not rigid and tender in the epigastrum, in the LLQ and in the RUQ Auscultation: hypoactive bowel sounds Back/Spine/Pelvis Back: no CVA tenderness Thoracic/Lumbar Spine: thoracic and lumbar spine normal to inspection, straight leg raise negative bilaterally, paraspinal tenderness (Bilateral lower thoracic and lumbar) and lumbar spinal tenderness Skin General skin exam: no rashes or lesions noted Neuro General: alert, awake, oriented x3, moves all extremities and no focal motor deficits Cognition: normal cognition Speech: speech normal Motor: muscle tone normal throughout and strength 5/5 throughout Sensory Exam: no sensory deficits noted DTR's: Rt Patellar: 1+, Lt Patellar: 1+, Rt Ankle: 1+ and Lt Ankle: 1+ Plantar Reflexes: Equivocal: bilateral (negative babinski b/l ) Extrem Other: Bilateral DP/PT pulses intact Psych Appearance: grossly normal Mental Status: mental status grossly normal Speech and Movement: speech and movement normal Affect: normal affect Course Vital Signs Vital signs: Vital Signs Temperature 97.9 F 06/01/19 07:35 Pulse 68 06/01/19 07:35 Respiratory Rate 16 06/01/19 07:35 Blood Pressure 127/74 06/01/19 07:35 Pulse Oximetry 100 06/01/19 07:35 Temperature 97.9 F 06/01/19 07:35 Temperature Source Skin 06/01/19 07:35 Pulse 68 06/01/19 07:35 Respiratory Rate 16 06/01/19 07:35 Respiratory Effort Non-Labored 06/01/19 07:35 Blood Pressure 127/74 06/01/19 07:35 Blood Pressure Position Supine 06/01/19 07:35 Pulse Oximetry 100 06/01/19 07:35 Oxygen Delivery Method Room Air 06/01/19 07:35 Oxygen Flow Rate 0 06/01/19 07:35 Pain Level 9 06/01/19 07:35 Lab/Test Results Lab/Test Results: Laboratory Tests Range/Units 06/01/19 08:00 Urine Color (Yellow) Yellow Urine Clarity (Clear) Cloudy Urine pH (5-8) 6.0 Ur Specific Fork (1.005-1.025) >= 1.030 H Urine Protein (Negative) mg/dL 100 H Urine Ketones (Negative) mg/dL 40 H Urine Blood (Negative) Large H Urine Nitrite (Negative) Negative Urine Bilirubin (Negative) Small H Urine Urobilinogen (Up TO 0.2) EU/dL 0.2 Ur Leukocyte Esterase (Negative) Negative Urine Glucose (Negative) mg/dL Negative POC- Test(urine) Negative
[2019-06-01 08:17] LABS: Bacteria Moderate HPF (Negative); C & S Indicated? No; Casts Negative LPF (Negative); Crystals Negative HPF (Negative); Epithelial Cells Moderate HPF (Negative); Mucus Moderate (Negative); RBC >50 HPF (0-2); WBC Negative HPF (0-5)
[2019-06-01] MEDS: Normal Saline Flush 10 ML SYR IVP (08:20)
[2019-06-01] MEDS: Normal Saline 1,000 ML 1000 ML IV (08:20)
[2019-06-01] MEDS: Ketorolac 30 MG/ML VIAL IVP (08:25)
[2019-06-01 08:28] LABS: Abs Immature Grans 0.01 k/cumm (0.0-0.09); Absolute Basophil Count 0.02 k/cumm (0.0-0.2); Absolute Eosinophil Count 0.23 k/cumm (0.0-0.7); Absolute Lymphocyte Count 1.77 k/cumm (1.2-3.4); Absolute Monocyte Count 0.43 k/cumm (0.11-0.7); Absolute Neutrophil Count 3.46 k/cumm (1.2-6.7); Basophils % 0.3; Eosinophils % 3.9; HCT 36.6 % (36.0-46.0); HGB 12.1 g/dL (12.0-15.5); Immature Grans % 0.2 %; Lymphocytes % 29.9; Mean Corp. HGB Concentration 33.1 g/dL (32.0-36.0); Mean Corpuscular Volume 72.6 fL (80-95); Monocytes % 7.3; Neutrophils % 58.4; Platelet Count 334 x1000/uL (130-400); RBC 5.04 m/cumm (4.00-5.20); RBC Distribution Width 16.8 % (11.7-14.6); White Blood Cell Count 5.92 k/cumm (4.4-10.8)
[2019-06-01] MEDS: Ondansetron 4 MG/2 ML VIAL IVP (08:28)
[2019-06-01 08:39] LABS: ALT 22 U/L (14-59); AST 25 U/L (15-37); Albumin 3.3 g/dL (3.4-5.0); Alkaline Phosphatase 66 U/L (46-116); Anion Gap 9.7 mmol/L (3-11); BUN 10 mg/dL (7-18); Bilirubin, Total 0.2 mg/dL (0.2-1.0); CO2 24.3 mmol/L (21.0-32.0); CREATININE 0.67 mg/dL (0.55-1.02); Calcium 8.5 mg/dL (8.5-10.1); Chloride 106 mmol/L (98-107); Glucose 82 mg/dL (74-106); Lipase 68 U/L (73-393); Potassium 4.1 mmol/L (3.5-5.1); Sodium 140 mmol/L (136-145); Total Protein 7.5 g/dL (6.4-8.2)
--- NOTE | 2019-06-01 08:47 | DI.CT_ITS ---
EXAM: CT RENAL COLIC WO CLINICAL HISTORY: mid to lower back pain;RUQ pain/vomiting/diarrhea TECHNIQUE: Noncontrast COMPARISON: CT ABDOMEN PELVIS WO from 03/22/2019 FINDINGS: No urinary tract calculi or hydronephrosis is seen. The heart size is normal. Gallstones are noted . There is no gallbladder wall thickening or biliary dilatation. The liver, spleen, pancreas and ad renals are unremarkable. Appendix appears normal. There is a question of mild colonic diverticulosis . There is a moderate quantity of stool. There is no bowel dilatation or inflammatory change. The uterus and ovaries are unremarkable. The urinary bladder is empty. The lung bases are clear. No p[place] abnormalities are seen. IMPRESSION: No evidence of urinary tract calculi or other acute abnormality.
[2019-06-01 08:55] LABS: Anisocytosis 1+; Diff Comment RBC Morph Reviewed; Hypochromasia 1+; Microcytosis 2+; Poikilocytes 2+
[2019-06-01 09:23] VITALS: BP 128/74; PULSE 65; RESP 18; TEMP 36.7; O2SAT 99
[2019-06-01] MEDS: diazePAM 5 MG TAB PO (09:30)
[2019-06-01] MEDS: Lidocaine 5% Patch 1 PATCH TP (09:30)
--- NOTE | 2019-06-01 09:40 | DI.VRAD_ITS ---
PROCEDURE INFORMATION: Exam: CT Abdomen And Pelvis Without Contrast Exam date and time: 06/01/2019 8:14 AM Age: 24 years old Clinical indication: Other: Mid to lower back pain; Ruq pain/vomiting/diarrhea, R/O gallstones/cholecystitis/kidney stones/colitis TECHNIQUE: Imaging protocol: Computed tomography of the abdomen and pelvis without contrast. Radiation optimization: All CT scans at this facility use at least one of these dose optimization techniques: automated exposure control; mA and/or kV adjustment per patient size (includes targeted exams where dose is matched to clinical indication); or iterative reconstruction. COMPARISON: CT ABDOMEN PELVIS WO 03/22/2019 7:47 PM FINDINGS: Liver: Normal. No mass. Gallbladder and bile ducts: Cholelithiasis. Pancreas: Normal. No ductal dilation. Spleen: Normal. No splenomegaly. Adrenals: Normal. No mass. Kidneys and ureters: No obstructive uropathy or renal calculus. Stomach and bowel: Colonic diverticulosis without CT evidence of diverticulitis. Appendix: No evidence of appendicitis. Intraperitoneal space: Unremarkable. No free air. No significant fluid collection. Vasculature: Unremarkable. No abdominal aortic aneurysm. Lymph nodes: Unremarkable. No enlarged lymph nodes. Bladder: Unremarkable as visualized. Reproductive: Unremarkable as visualized. Bones/joints: Unremarkable. No acute fracture. Soft tissues: Unremarkable. IMPRESSION: 1. Cholelithiasis. 2. No obstructive uropathy or renal calculus. 3. Colonic diverticulosis without CT evidence of diverticulitis. Dictated and Authenticated by: Nini Rain MD. Ordering:FACUNDO Khan MD
[2019-06-01 10:18] VITALS: BP 126/70; PULSE 73; RESP 18; TEMP 36.5; O2SAT 100
== END 2019-06-01 10:23 | disposition home or self-care (01) ==
PROVIDERS: Emergency Provider Physician Assistant; PCP Nurse Practitioner Family
DX: M54.5 Low back pain (principal); R11.2 Nausea with vomiting, unspecified; K52.9 Noninfective gastroenteritis and colitis, unspecified; R10.10 Upper abdominal pain, unspecified; R31.9 Hematuria, unspecified
CPT/HCPCS: 36415; 80053; 81025; 83690; 96361; 96374; 96375; 99284; 74176; 81003; 81015; 85025; 99285; J1885; J2405

== ENCOUNTER 2019-06-16 02:02 | Outpatient (CLI) | payer SELFPAY | END 2019-06-16 02:22 | PROVIDERS: PCP Nurse Practitioner Family; Visit Provider Nurse Practitioner Family | DX: R06.02 Shortness of breath (principal) ==

== ENCOUNTER 2019-09-08 20:54 | Outpatient (REF) | payer SELFPAY ==
[2019-09-08 21:20] LABS: Abs Immature Grans 0.02 k/cumm (0.0-0.09); Absolute Basophil Count 0.01 k/cumm (0.0-0.2); Absolute Eosinophil Count 0.38 k/cumm (0.0-0.7); Absolute Lymphocyte Count 2.68 k/cumm (1.2-3.4); Absolute Monocyte Count 0.39 k/cumm (0.11-0.7); Absolute Neutrophil Count 4.81 k/cumm (1.2-6.7); Basophils % 0.1; Eosinophils % 4.6; HCT 38.8 % (36.0-46.0); HGB 12.7 g/dL (12.0-15.5); Immature Grans % 0.2 %; Lymphocytes % 32.3; Mean Corp. HGB Concentration 32.7 g/dL (32.0-36.0); Mean Corpuscular Hemoglobin 24.1 pg (27.0-33.0); Mean Corpuscular Volume 73.8 fL (80-95); Mean Platelet Volume 11.1 fL (8.0-11.0); Monocytes % 4.7; Neutrophils % 58.1; Platelet Count 311 x1000/uL (130-400); RBC 5.26 m/cumm (4.00-5.20); RBC Distribution Width 16.3 % (11.7-14.6); White Blood Cell Count 8.29 k/cumm (4.4-10.8)
[2019-09-08 21:35] LABS: ALT 22 U/L (14-59); AST 13 U/L (15-37); Albumin 3.4 g/dL (3.4-5.0); Alkaline Phosphatase 77 U/L (46-116); Anion Gap 10.4 mmol/L (3-11); BUN 10 mg/dL (7-18); Bilirubin, Total 0.1 mg/dL (0.2-1.0); CO2 23.6 mmol/L (21.0-32.0); CREATININE 0.66 mg/dL (0.55-1.02); Calcium 9.2 mg/dL (8.5-10.1); Chloride 103 mmol/L (98-107); Glucose 85 mg/dL (74-106); Potassium 4.6 mmol/L (3.5-5.1); Sodium 137 mmol/L (136-145); Total Protein 7.4 g/dL (6.4-8.2)
[2019-09-08 21:38] LABS: Diff Comment RBC Morph Reviewed; Microcytosis 2+
== END 2019-09-08 21:14 ==
LOC: NCHCN 20:54
PROVIDERS: PCP Nurse Practitioner Family; Visit Provider Nurse Practitioner Family
DX: R11.2 Nausea with vomiting, unspecified (principal); R10.84 Generalized abdominal pain; N97.9 Female infertility, unspecified
CPT/HCPCS: 80053; 85025

== ENCOUNTER 2019-09-29 09:24 | Emergency (ER) | payer MEDICAID, SELFPAY ==
[2019-09-29 09:27] VITALS: BP 145/79; PULSE 65; RESP 16; TEMP 36.4; O2SAT 100
--- NOTE | 2019-09-29 09:49 | ED.GENADUL_ITS ---
Discharge Plan Disposition Patient Disposition: HOME Condition: Stable Discharge Details Chief Complaint: Nk/Back Pain Clinical Impression: Lumbar strain Primary Care Provider: Chandni Finn ED Provider: Erin Bradford Home Meds and New Rx's Prescriptions: New methocarbamol 500 mg tablet 500 mg PO Q6H PRN (Reason: muscle spasm) Qty: 14 RF: 0 lidocaine [Lidoderm] 5 % adhesive patch,medicated 1 patch TP DAILY PRN (Reason: pain) Qty: 15 RF: 0 naproxen [Naprosyn] 500 mg tablet 500 mg PO BID PRN (Reason: pain) Qty: 14 RF: 0 Continued Flovent HFA 110 mcg/actuation Hfa Aerosol Inhaler INHALATION PRNRF: 0 albuterol sulfate 2.5 mg /3 mL (0.083 %) solution for nebulization 2.5 mg IH Q4H PRN (Reason: shortness of breath or wheezing) Qty: 180 RF: 0 Discharge Instructions Instructions: Low Back Strain (ED) Additional Instructions: Alternate ice and heat to the affected area(s) several times daily for 20 minutes at a time. Alternate tylenol and naprosyn as needed and directed for pain. Take the methocarbamol and Lidoderm patch as needed and directed. Follow-up with your primary care doctor in 1 week. Return to the emergency department with any worsening or new concerning sympto ms. 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 No cauda equina symptoms. Vitals within normal limits. Tenderness to palpation of left lumbar paraspinal and midline lumbar spinal region. Suspect most likely muscle strain. Will obtain a lumbar spine x-ray to rule out vertebral compression fracture. Will place a Lidoderm patch, IM Toradol, p.o. Valium and reassess. test negative. Patient reassessed -she feels better. Lumbar spine x-ray negative. Patient was able to ambulate with improvement of pain. We will send home with a prescription for methocarbamol, Lidoderm patch and naproxen. Advised on the importance of alternating ice and heat, NSAIDs and Tylenol. She called out of work today. She was given a work note to return later this week. Advised to follow up with the primary care doctor for re-evaluation. Usual and customary return precautions given prior to discharge. Medical Records Medical records reviewed: Yes I reviewed the patient's medical records. Imaging Data Radiologic Study: Radiologist's impression: XR LUMBAR SPINE COMPLETE CLINICAL HISTORY: midline lumbar spine tenderness, r/o fracture. TECHNIQUE: 2D digital imaging was performed. COMPARISON: No exams were available for comparison FINDINGS: BONES: No fracture or destructive lesion. Vertebral bodies are unremarkable. No facet hypertrophy identified. DISKS: Intervertebral disc spaces are maintained. ALIGNMENT: Lumbar spinal alignment is within normal limits. SOFT TISSUE: Normal. IMPRESSION: Unremarkable radiographs of the lumbar spine. HPI General Mode of arrival: EMS . Date/Time Provider Initiated Documentation: 09/29/19 09:48 . Limitations to Documentation: no limitations . Information obtained by: patient . 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 She is complaining of pain across her lower back. She denies any radiation of pain into her legs, leg weakness or numbness, bowel or bladder incontinence, abdominal pain. She has not taken any medication for pain today. She took ibuprofen yesterday without relief. She denies any urinary symptoms. Related Data Home Medications Medication Instructions Recorded Confirmed albuterol sulfate 2.5 mg IH Q4H PRN #180 ml 03/24/19 09/29/19 Flovent HFA INHALATION PRN 05/12/19 lidocaine [Lidoderm] 1 patch TP DAILY PRN #15 each 09/29/19 methocarbamol 500 mg PO Q6H PRN #14 tab 09/29/19 naproxen [Naprosyn] 500 mg PO BID PRN #14 tab 09/29/19 Previous Rx's Medication Instructions Recorded albuterol sulfate 2.5 mg IH Q4H PRN #180 ml 03/24/19 lidocaine [Lidoderm] 1 patch TP DAILY PRN #15 each 09/29/19 methocarbamol 500 mg PO Q6H PRN #14 tab 09/29/19 naproxen [Naprosyn] 500 mg PO BID PRN #14 tab 09/29/19 Allergies Allergy/AdvReac Type Severity Reaction Status Date / Time iohexol [From Omnipaque] Allergy Intermediate Itching Unverified 09/29/19 09:31 General Stated Complaint: Nk/Back Pain MARIELLA: 4 Review of Systems All systems reviewed & are unremarkable except as noted in HPI and below Constitutional Constitutional: Reports as per HPI, Denies chills and Denies fever(s) Eyes Eyes: Denies blurry vision ENT Ears, Nose, Mouth, and Throat: Denies dizziness, Denies sore throat and Denies throat swelling Cardiovascular Cardiovascular: Denies chest pain and Denies dyspnea Respiratory Respiratory: Denies cough and Denies dyspnea Gastrointestinal Gastrointestinal: Denies abdominal pain, Denies diarrhea and Denies vomiting Genitourinary Genitourinary: Denies hematuria and Denies dysuria Musculoskeletal Musculoskeletal: Reports back pain and Denies numbness Integumentary/Breasts Skin/Breast: Denies lesions and Denies rash Neurologic Neurologic: Denies dizziness, Denies localized weakness and Denies numbness Allergic/Immunologic Allergic/Immunologic: Denies throat swelling [facility] Social History Smoking/Tobacco Use Status: Current every day Tobacco Type: cigarettes Alcohol Intake: never Drug use: Occasionally Substance use type: marijuana Details: marijuana: 03/21/19, small pipe Do you feel safe at home: Yes Do you feel safe in your relationship?: Yes Additional Social history: pt. 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 Exam Const General: cooperative, healthy appearing and no acute distress HENMT Head: normal to inspection Face and sinus: normal facial exam Eyes General: appearance normal, both eyes and all related structures EOM: EOM intact bilaterally Neck Neck: normal visual inspection and No submandibular swelling Lymphatic: no lymphadenopathy noted Chest Chest: normal inspection of the chest and no tenderness Resp Effort & Inspection: normal respiratory effort and able to speak in complete sentences Auscultation: clear to auscultation bilaterally Cardio Rate: regular rate Rhythm: regular rhythm GI Inspection: normal to inspection Palpation: soft, not firm, not rigid and nontender Auscultation: normal bowel sounds Back/Spine/Pelvis Thoracic/Lumbar Spine: thoracic and lumbar spine normal to inspection, straight leg raise negative bilaterally, paraspinal tenderness (L side) and lumbar spinal tenderness Skin General skin exam: no rashes or lesions noted Neuro General: patient alert, patient awake and patient oriented x3 Cognition: normal cognition Speech: speech normal Motor: muscle tone normal throughout and strength 5/5 throughout Sensory Exam: no sensory deficits noted Extrem General: normal to inspection, full ROM, capillary refill normal, no calf tenderness bilaterally and no edema Right lower extremity: foot Details: vascular exam Details: dorsalis pedis pulse present and posterior tibial pulse present Left lower extremity: foot Details: vascular exam Details: dorsalis pedis pulse present and posterior tibial pulse present Psych Appearance: grossly normal Mental Status: mental status grossly normal Speech and Movement: speech and movement normal Affect: normal affect Course Vital Signs Vital signs: Vital Signs Temperature 97.5 F L 09/29/19 09:27 Pulse 65 09/29/19 09:27 Respiratory Rate 16 09/29/19 09:27 Blood Pressure 145/79 H 09/29/19 09:27 Pulse Oximetry 100 09/29/19 09:27 Temperature 97.5 F L 09/29/19 09:27 Temperature Source Skin 09/29/19 09:27 Pulse 65 09/29/19 09:27 Respiratory Rate 16 09/29/19 09:27 Respiratory Effort Non-Labored 09/29/19 09:27 Blood Pressure 145/79 H 09/29/19 09:27 Blood Pressure Position Supine 09/29/19 09:27 Pulse Oximetry 100 09/29/19 09:27 Oxygen Delivery Method Room Air 09/29/19 09:27 Oxygen Flow Rate 0 09/29/19 09:27 Pain Level 10 09/29/19 09:34
--- NOTE | 2019-09-29 10:00 | DI.RAD_ITS ---
EXAM: XR LUMBAR SPINE COMPLETE CLINICAL HISTORY: midline lumbar spine tenderness, r/o fracture. TECHNIQUE: 2D digital imaging was performed. COMPARISON: No exams were available for comparison FINDINGS: BONES: No fracture or destructive lesion. Vertebral bodies are unremarkable. No facet hypertrophy amber ntified. DISKS: Intervertebral disc spaces are maintained. ALIGNMENT: Lumbar spinal alignment is within normal limits. SOFT TISSUE: Normal. IMPRESSION: Unremarkable radiographs of the lumbar spine. DATA REPOSITORY: RADIATION DOSE DELIVERED:
[2019-09-29] MEDS: Ketorolac 60 MG/2 ML VIAL IM (10:09)
[2019-09-29] MEDS: Lidocaine 5% Patch 1 PATCH TP (10:09)
[2019-09-29] MEDS: diazePAM 5 MG TAB PO (10:09)
== END 2019-09-29 11:52 | disposition home or self-care (01) ==
PROVIDERS: Emergency Provider Physician Assistant; PCP Nurse Practitioner Family
DX: S39.012A Strain of muscle, fascia and tendon of lower back, initial encounter (principal); X50.9XXA Other and unspecified overexertion or strenuous movements or postures, initial encounter; Y99.0 Civilian activity done for income or pay
CPT/HCPCS: 81025; 96372; 99284; 72110; J1885

== ENCOUNTER 2019-10-04 17:30 | Emergency (ER) | payer MEDICAID, SELFPAY ==
--- NOTE | 2019-10-04 17:25 | ED.GENADUL_ITS ---
Discharge Plan Disposition Patient Disposition: HOME Condition: Stable Discharge Details Chief Complaint: Nausea/Vomit/Diar Clinical Impression: Abdominal pain, vomiting, and diarrhea, Gastroenteritis, Dehydration Primary Care Provider: Chandni Finn ED Provider: Davin Beard Home Meds and New Rx's Prescriptions: New famotidine [Pepcid] 20 mg tablet 20 mg PO DAILY Qty: 14 RF: 0 ondansetron 4 mg tablet,disintegrating 4 mg PO TID PRN (Reason: nausea and vomiting) Qty: 6 RF: 0 Continued Flovent HFA 110 mcg/actuation Hfa Aerosol Inhaler INHALATION PRNRF: 0 albuterol sulfate 2.5 mg /3 mL (0.083 %) solution for nebulization 2.5 mg IH Q4H PRN (Reason: shortness of breath or wheezing) Qty: 180 RF: 0 methocarbamol 500 mg tablet 500 mg PO Q6H PRN (Reason: muscle spasm) Qty: 14 RF: 0 lidocaine [Lidoderm] 5 % adhesive patch,medicated 1 patch TP DAILY PRN (Reason: pain) Qty: 15 RF: 0 naproxen [Naprosyn] 500 mg tablet 500 mg PO BID PRN (Reason: pain) Qty: 14 RF: 0 Discharge Instructions Instructions: Acute Nausea and Vomiting (ED), Abdominal Pain (ED) Additional Instructions: Drink plenty of fluids and get plenty of rest. Take Zofran as needed directed for nausea and vomiting. Take the Pepcid daily for the next 2 weeks. Follow-up with your primary care doctor in 1 week. Return to the emergency department with any worsening or new concerning symptoms. Stand Alone Forms: Work Release Discharge Data Discharge Date/Time-TO BE ENTERED AT DEPARTURE: 10/04/19 22:15 Discharge Physician: Erin Bradford Medical Decision Making <Erin Bradford DO - Last Filed: 10/05/19 12:11> 1740 -- 24-year-old female with a history of cholelithiasis, asthma, anxiety, depression, obesity and schizophrenia who presents with vomiting, diarrhea and epigastric abdominal pain for the past 4 days. test negative. Tender to palpation in epigastrium. Differential diagnosis includes gastritis, gastroenteritis, peptic ulcer disease, cholelithiasis cholecystitis. Will place an IV, bolus IV fluids, screening labs, urinalysis, gallbladder ultrasound, Zofran, Pepcid and GI cocktail and reassess. 1830 --labs and imaging reviewed. White blood cell count normal. Creatinine 2.11. GFR 28. This is significantly abnormal compared to last result 1 month ago. Normal lipase and liver function. Urinalysis negative for infection. Gallbladder ultrasound noted cholelithiasis but no evidence of cholecystitis. Patient reassessed and she states she feels better. She is able to drink water and eat crackers. D/w pt that we could consider admission for CHIARA but considering her young age and improvement of symptoms, we can recheck labs after IVF. Patient states she would prefer to go home if possible. We will give another liter IV fluids and recheck a BMP at 9 PM. Case endorsed to Dr. Beard to follow-up on repeat BMP. If normalized, okay to discharge home with Zofran and Pepcid. Medical Records Medical records reviewed: Yes I reviewed the patient's medical records. Lab Data Lab results reviewed: Yes I reviewed the patient's lab results. <Davin Beard, DO - Last Filed: 10/04/19 21:57> Case was signed out to me by my colleague Dr. Erin Bradford for reassessment of labs after rehydration. Patient has received 2 L of IV fluids, she is feeling much better now, tolerating p.o., asking to go home. Repeat creatinine is 1.94, repeat GFR is 31, both are slowly trending towards normal. Patient feels well. Repeat abdominal exam demonstrates no signs of an acute surgical abdomen whatsoever. I did discuss with the patient admission/observation to the hospital , and at this time through notable discussion, weighing the risks and benefits, utilizing a shared decision making process, and with a very clear discussion on the benefit of admission and the risks associated with discharge including the unlikely but potential worst case scenario of or lifelong disability the patient has refused admission and would like to go home. Patient is of a appropriate age to make decisions. The patient is of sound mind, appears clinically sober, and has capacity to make decisions by my clinical exam. Respecting the patient's wishes, they will be discharged home. Respecting patient's wishes she will be discharged home with close follow-up. Discussed red flags which to return. She will be given Zofran for home use. I have extensively reviewed the treatment plan and discharge instructions with the patient. I have addressed all patient concerns at this time. The patient was made aware of what symptoms to monitor for that would warrant a return to the emergency department. Discussed the plan with the patient, they demonstrate verbal understanding and agreement with our assessment and plan at this time. Diagnosis gastroenteritis, dehydration, improving acute kidney injury. HPI <Erin Bradford, - Last Filed: 10/05/19 12:11> General Mode of arrival: ambulatory . Date/Time Provider Initiated Documentation: 10/04/19 17:44 . Limitations to Documentation: no limitations . Information obtained by: patient . HPI Narrative: Pt is a 24yo F who presents to the ED for vomiting and diarrhea for the past few days. She has had several episodes of bilious vomiting and watery brown diarrhea. Last episode of diarrhea 2 days ago. She admits to intermittent sharp epigastric abdominal pain. She admits to intermittent urinary frequency. Related Data Home Medications Medication Instructions Recorded Confirmed albuterol sulfate 2.5 mg IH Q4H PRN #180 ml 03/24/19 10/04/19 Flovent HFA INHALATION PRN 05/12/19 lidocaine [Lidoderm] 1 patch TP DAILY PRN #15 each 09/29/19 10/04/19 methocarbamol 500 mg PO Q6H PRN #14 tab 09/29/19 10/04/19 naproxen [Naprosyn] 500 mg PO BID PRN #14 tab 09/29/19 10/04/19 famotidine [Pepcid] 20 mg PO DAILY #14 tab 10/04/19 ondansetron 4 mg PO TID PRN #6 tab 10/04/19 Previous Rx's Medication Instructions Recorded albuterol sulfate 2.5 mg IH Q4H PRN #180 ml 03/24/19 lidocaine [Lidoderm] 1 patch TP DAILY PRN #15 each 09/29/19 methocarbamol 500 mg PO Q6H PRN #14 tab 09/29/19 naproxen [Naprosyn] 500 mg PO BID PRN #14 tab 09/29/19 famotidine [Pepcid] 20 mg PO DAILY #14 tab 10/04/19 ondansetron 4 mg PO TID PRN #6 tab 10/04/19 Allergies Allergy/AdvReac Type Severity Reaction Status Date / Time iohexol [From Omnipaque] Allergy Intermediate Itching Unverified 10/04/19 17:36 General MARIELLA: 4 Review of Systems <Erin Bradford DO - Last Filed: 10/05/19 12:11> All systems reviewed & are unremarkable except as noted in HPI and below Constitutional Constitutional: Reports as per HPI, Denies chills and Denies fever(s) Eyes Eyes: Denies blurry vision ENT Ears, Nose, Mouth, and Throat: Denies dizziness, Denies sore throat and Denies throat swelling Cardiovascular Cardiovascular: Denies chest pain and Denies dyspnea Respiratory Respiratory: Denies cough and Denies dyspnea Gastrointestinal Gastrointestinal: Denies abdominal pain, Denies diarrhea and Denies vomiting Genitourinary Genitourinary: Denies hematuria and Denies dysuria Musculoskeletal Musculoskeletal: Denies back pain and Denies numbness Integumentary/Breasts Skin/Breast: Denies lesions and Denies rash Neurologic Neurologic: Denies dizziness, Denies localized weakness and Denies numbness Allergic/Immunologic Allergic/Immunologic: Denies throat swelling PFSH <Erin Bradford DO - Last Filed: 10/05/19 12:11> Social History Smoking/Tobacco Use Status: Current every day Tobacco Type: cigarettes Alcohol Intake: never Drug use: Occasionally Substance use type: marijuana Details: marijuana: 03/21/19, small pipe Do you feel safe at home: Yes Do you feel safe in your relationship?: Yes Additional Social history: pt. states she is comfortable with Pashto but is aware that arabic translator service is available Sign Out <Erin Bradford DO - Last Filed: 10/05/19 12:11> Sign Out Data: Sign Out Comment: Follow up on repeat BMP at 9pm. If normalized, pt can be discharged home. Last updated by Erin Bradford DO at 10/04/19 19:43
[2019-10-04 17:32] VITALS: BP 145/93; PULSE 68; RESP 16; TEMP 36.6; O2SAT 100
[2019-10-04] MEDS: Normal Saline 1,000 ML 1000 ML IV ×2 (18:00→19:14)
--- NOTE | 2019-10-04 18:00 | DI.US_ITS ---
EXAM: US ABDOMEN LIMITED CLINICAL HISTORY: r/o cholecystitis TECHNIQUE: Ultrasound performed using standard protocol. COMPARISON: CT CT RENAL COLIC WO from 06/01/2019 FINDINGS: Gallstones are noted. There is no gallbladder wall thickening or pericholecystic fluid. The gallbl adder is not abnormally distended. There is no biliary dilatation. Visualized portions of the pancr eas appears normal. IMPRESSION: Cholelithiasis. No evidence of acute cholecystitis. DATA REPOSITORY:
[2019-10-04 18:03] LABS: Abs Immature Grans 0.01 k/cumm (0.0-0.09); Absolute Basophil Count 0.01 k/cumm (0.0-0.2); Absolute Eosinophil Count 0.38 k/cumm (0.0-0.7); Absolute Lymphocyte Count 2.43 k/cumm (1.2-3.4); Absolute Monocyte Count 0.65 k/cumm (0.11-0.7); Basophils % 0.1; Eosinophils % 3.7; HCT 35.2 % (36.0-46.0); HGB 11.8 g/dL (12.0-15.5); Immature Grans % 0.1 %; Lymphocytes % 23.6; Mean Corp. HGB Concentration 33.5 g/dL (32.0-36.0); Mean Corpuscular Hemoglobin 24.8 pg (27.0-33.0); Mean Corpuscular Volume 73.9 fL (80-95); Mean Platelet Volume 10.1 fL (8.0-11.0); Monocytes % 6.3; Neutrophils % 66.2; Platelet Count 275 x1000/uL (130-400); RBC 4.76 m/cumm (4.00-5.20); RBC Distribution Width 16.2 % (11.7-14.6); White Blood Cell Count 10.28 k/cumm (4.4-10.8)
[2019-10-04 18:09] LABS: Bilirubin Negative (Negative); Blood Trace-intact (Negative); Clarity Clear (Clear); Glucose Negative (Negative); Ketones Negative (Negative); Leukocyte Esterase Negative (Negative); Nitrite Negative (Negative); Urobilinogen 0.2 EU/dL (Up TO 0.2); pH 5.5 (5-8)
[2019-10-04 18:15] LABS: ALT 18 U/L (14-59); AST 13 U/L (15-37); Albumin 3.1 g/dL (3.4-5.0); Alkaline Phosphatase 68 U/L (46-116); Anion Gap 9.5 mmol/L (3-11); BUN 16 mg/dL (7-18); Bilirubin, Total 0.4 mg/dL (0.2-1.0); CO2 27.5 mmol/L (21.0-32.0); CREATININE 2.11 mg/dL (0.55-1.02); Calcium 8.5 mg/dL (8.5-10.1); Chloride 103 mmol/L (98-107); Estimated GFR 28.31 (mL/min/1.73m2); Glucose 86 mg/dL (74-106); Lipase 47 U/L (73-393); Potassium 3.2 mmol/L (3.5-5.1); Sodium 140 mmol/L (136-145); Total Protein 7.4 g/dL (6.4-8.2)
[2019-10-04 18:19] LABS: Bacteria Rare HPF (Negative); C & S Indicated? No; Crystals Negative HPF (Negative); Epithelial Cells Moderate HPF (Negative); Mucus Negative (Negative); RBC 0-2 HPF (0-2); WBC 0-2 HPF (0-5)
[2019-10-04] MEDS: FAMOTIDINE 20 MG/50 ML BAG 200 MG IVPB (18:25)
[2019-10-04] MEDS: Ondansetron 4 MG/2 ML VIAL IVP (18:30)
[2019-10-04] MEDS: Normal Saline Flush 10 ML SYR IVP (18:37)
--- NOTE | 2019-10-04 19:11 | DI.VRAD_ITS ---
PROCEDURE INFORMATION: Exam: US Abdomen Limited, Right Upper Quadrant Exam date and time: 10/04/2019 6:13 PM Age: 24 years old Clinical indication: Other: Ruq pain, R/O cholecystitis TECHNIQUE: Imaging protocol: Real-time ultrasound of the abdomen with image documentation. Examination was focused on the right upper quadrant. COMPARISON: CT RENAL COLIC WO 06/01/2019 8:47 AM FINDINGS: Multiple gallstones within the gallbladder. No gallbladder wall thickening. No pericholecystic fluid. Common bile duct measures 2 mm. Pancreas is unremarkable. No abnormal fluid collections. IMPRESSION: Cholelithiasis with no sonographic evidence for acute cholecystitis. Dictated and Authenticated by: Presley Astorga MD. Ordering:FACUNDO Khan MD
[2019-10-04] MEDS: Potassium Chloride 20 MEQ TABCR 40 MEQ PO (19:14)
[2019-10-04 19:15] VITALS: PULSE 68; RESP 26
[2019-10-04 19:16] VITALS: BP 139/83; PULSE 68; PULSE 79; RESP 24
[2019-10-04 21:36] LABS: Anion Gap 9.2 mmol/L (3-11); BUN 15 mg/dL (7-18); CO2 26.8 mmol/L (21.0-32.0); CREATININE 1.94 mg/dL (0.55-1.02); Calcium 8.4 mg/dL (8.5-10.1); Chloride 104 mmol/L (98-107); Estimated GFR 31.19 (mL/min/1.73m2); Glucose 86 mg/dL (74-106); Potassium 3.6 mmol/L (3.5-5.1); Sodium 140 mmol/L (136-145)
[2019-10-04 21:38] VITALS: BP 133/80; PULSE 81; RESP 24; O2SAT 97
[2019-10-04 22:00] VITALS: BP 128/76; PULSE 70; RESP 18; TEMP 36.5; O2SAT 100
[2019-10-04 22:01] VITALS: BP 128/76; PULSE 70; RESP 18; TEMP 36.5; O2SAT 100
== END 2019-10-04 22:15 | disposition home or self-care (01) ==
PROVIDERS: Physician Assistant; Emergency Provider Student in an Organized Health Care Education/Training Program; PCP Nurse Practitioner Family
DX: K52.9 Noninfective gastroenteritis and colitis, unspecified (principal); E86.0 Dehydration; N17.9 Acute kidney failure, unspecified; R10.13 Epigastric pain
CPT/HCPCS: 36415; 80048; 80053; 81025; 83690; 96361; 96374; 96375; 99284; 76705; 81003; 81015; 85025; 99281; J2405

== ENCOUNTER 2019-10-06 14:11 | Emergency (ER) | payer MEDICAID, SELFPAY ==
--- NOTE | 2019-10-06 14:00 | DI.US_ITS ---
EXAM: US ABDOMEN LIMITED INDICATION: RUQ pain COMPARISON: No exams were available for comparison TECHNIQUE: Ultrasound abdomen performed using standard protocol FINDINGS: LIVER: Normal GALLBLADDER: cholelithiasis. No pericholecystic fluid identified. No evidence of wall thickening or abnormal gallbladder distention. KIDNEYS: Right kidney shows no evidence of renal calculi. No evidence of hydronephrosis. No renal mas s or cyst identified. BILIARY SYSTEM: Common bile duct measures 3 mm. No intrahepatic biliary ductal dilation. GRESHAM'S SIGN: Negative. PANCREAS: Normal where visualized. ABDOMINAL AORTA AND IVC: Visualized portions normal caliber. ASCITES: None seen. IMPRESSION: Cholelithiasis. No findings to suggest acute cholecystitis.
[2019-10-06 14:09] VITALS: BP 125/75; PULSE 61; RESP 18; TEMP 36.7; O2SAT 100
[2019-10-06] MEDS: Normal Saline Flush 10 ML SYR IVP (14:19)
--- NOTE | 2019-10-06 14:20 | ED.GENADUL_ITS ---
Discharge Plan Disposition Patient Disposition: HOME Condition: Improving Discharge Details Chief Complaint: Abd Prob Clinical Impression: Nausea & vomiting Primary Care Provider: Chandni Finn ED Provider: Davin Beard Home Meds and New Rx's Prescriptions: Continued Flovent HFA 110 mcg/actuation Hfa Aerosol Inhaler INHALATION PRNRF: 0 albuterol sulfate 2.5 mg /3 mL (0.083 %) solution for nebulization 2.5 mg IH Q4H PRN (Reason: shortness of breath or wheezing) Qty: 180 RF: 0 methocarbamol 500 mg tablet 500 mg PO Q6H PRN (Reason: muscle spasm) Qty: 14 RF: 0 lidocaine [Lidoderm] 5 % adhesive patch,medicated 1 patch TP DAILY PRN (Reason: pain) Qty: 15 RF: 0 naproxen [Naprosyn] 500 mg tablet 500 mg PO BID PRN (Reason: pain) Qty: 14 RF: 0 famotidine [Pepcid] 20 mg tablet 20 mg PO DAILY Qty: 14 RF: 0 ondansetron 4 mg tablet,disintegrating 4 mg PO TID PRN (Reason: nausea and vomiting) Qty: 6 RF: 0 Discharge Instructions Instructions: Acute Nausea and Vomiting (ED) Additional Instructions: Please avoid any foods for the next 48 to 72 hours. Only stick with liquids, I would recommend water, ice chips, plain broth, and Jell-O. Use the [place] as needed. If you notice any worsening of your symptoms, or any new symptoms such as vomiting, diarrhea, fever, chills, shortness of breath, chest pain, nu mbness, weakness, or fainting , please return immediately to the emergency department for reevaluation. Please follow up with your primary care provider as soon as possible for reassessment and reevaluation. As always, it was a pleasure participating in your medical care today. Referrals: Chandni Finn [Primary Care Provider] - Discharge Data Discharge Date/Time-TO BE ENTERED AT DEPARTURE: 10/06/19 21:45 Medical Decision Making <Lianet Rea MD - Last Filed: 10/14/19 00:48> Lawrence Flores is a 24 y/o woman who presented to the emergency department with vomiting and RUQ abdominal pain after being discharged for same 10/03 with US showing cholelithiasis and CR elevated from baseline. On exam Pt is well and non-toxic appearing. Mild RUQ TTP without peritoneal signs. Concern for cholecystitis, gastritis, pancreatitis, dehydration, metabolic/lyte derangement, other. Exam/hx not c/w appy, bowel perf, non-biliary acute surgical intra- abdominal process, sepsis. Plan for screening labs, US, IVF hydration. US shows cholelithiasis, no cholecystitis. Labs reviewed, Cr 1.7 improved from 10/03. Plan for continued IVF hydration. Pt taking PO in the ED. Pt now reporting that she feels as if her pain has been in b/l flanks and she has been describing it incorrectly. No CVA TTP b/l on reassessment. Given unclear etiology of pain, waxing and waning nature, CHIARA, and report of flank pain, plan for CT renal. CT okay. Plan for continued IVF hydration, repeat BMP at completion of 2L IVF. I discussed d/c vs admission for continued vomiting with the Pt. Pt states that she was doing fine with drinking fluids prior to trying to eat pumpkin and would like to go home. She is drinking in the ED without issue. Pt signed out to Dr. Beard at time of shift change with repeat BMP, reassesment pending. Medical Records Medical records reviewed: Yes I reviewed the patient's medical records. Imaging Data Radiologic Study: Attestation: I personally reviewed and interpreted this imaging study as follows: Radiologist's impression: EXAM: CT RENAL COLIC WO CLINICAL HISTORY: b/l flank pain. TECHNIQUE: Imaging Protocol: Axial computed tomography images with coronal and sagittal reformatted images were created and reviewed. CONTRAST MATERIAL: Noncontrast COMPARISON: CT CT RENAL COLIC WO from 06/01/2019 FINDINGS: ABDOMEN: Lung Bases: Normal where visualized. Liver: Normal density. No measurable mass. Gallbladder and biliary tract: Small stones in the dependent portion of the gallbladder. No abnormal gallbladder distention or wall thickening. No biliary dilation. Pancreas: Normal density, no abnormal calcifications or inflammatory process. Spleen: Normal. Kidneys: Normal size, contour and axis. No radiodense stones or obstructive uropathy. No masses seen. Adrenal glands: No masses seen. Abdominal Aorta: Abdominal portion non-dilated. PELVIS: Bladder: Symmetric distention, no gross wall thickening. Bowel: No obstruction or bowel wall thickening. Peritoneal cavity: No ascites, collection or mesenteric inflammatory response. Normal appendix. Bones: Within normal limits. IMPRESSION: Cholelithiasis. No acute abnormality. EXAM: US ABDOMEN LIMITED INDICATION: RUQ pain COMPARISON: No exams were available for comparison TECHNIQUE: Ultrasound abdomen performed using standard protocol FINDINGS: LIVER: Normal GALLBLADDER: cholelithiasis. No pericholecystic fluid identified. No evidence of wall thickening or abnormal gallbladder distention. KIDNEYS: Right kidney shows no evidence of renal calculi. No evidence of hydronephrosis. No renal mass or cyst identified. BILIARY SYSTEM: Common bile duct measures 3 mm. No intrahepatic biliary ductal dilation. GRESHAM'S SIGN: Negative. PANCREAS: Normal where visualized. ABDOMINAL AORTA AND IVC: Visualized portions normal caliber. ASCITES: None seen. IMPRESSION: Cholelithiasis. No findings to suggest acute cholecystitis. Lab Data Lab results reviewed: Yes I reviewed the patient's lab results. Labs: Laboratory Tests Range/Units 10/06/19 10/06/19 10/06/19 14:10 14:10 14:25 WBC (4.4-10.8) k/cumm 8.14 RBC (4.00-5.20) m/cumm 4.74 Hgb (12.0-15.5) g/dL 11.7 L Hct (36.0-46.0) % 35.7 L MCV (80-95) fL 75.3 L MCH (27.0-33.0) pg 24.7 L MCHC (32.0-36.0) g/dL 32.8 RDW (11.7-14.6) % 16.0 H Plt Count (130-400) x1000/uL 278 MPV (8.0-11.0) fL 10.2 Immature Gran % % 0.1 Neutrophils % 67.5 Lymphocytes % 22.6 Monocytes % 5.4 Eosinophils % 4.3 Basophils % 0.1 Absolute Neutrophils (1.2-6.7) k/cumm 5.49 Absolute Lymphocytes (1.2-3.4) k/cumm 1.84 Absolute Monocytes (0.11-0.7) k/cumm 0.44 Absolute Eosinophils (0.0-0.7) k/cumm 0.35 Absolute Basophils (0.0-0.2) k/cumm 0.01 Sodium (136-145) mmol/L 138 Potassium (3.5-5.1) mmol/L 3.6 Chloride (98-107) mmol/L 101 Carbon Dioxide (21.0-32.0) mmol/L 27.9 Anion Gap (3-11) mmol/L 9.1 BUN (7-18) mg/dL 11 Creatinine (0.55-1.02) mg/dL 1.70 H Estimated GFR/1.73 m2 (mL/min/1.73m2) 36.33 Glucose (74-106) mg/dL 104 Calcium (8.5-10.1) mg/dL 8.6 Total Bilirubin (0.2-1.0) mg/dL 0.4 AST (15-37) U/L 11 L ALT (14-59) U/L 19 Alkaline Phosphatase (46-116) U/L 67 Total Protein (6.4-8.2) g/dL 8.0 Albumin (3.4-5.0) g/dL 3.2 L Lipase (73-393) U/L 48 Urine Color (Yellow) Yellow Urine Clarity (Clear) Clear Urine pH (5-8) 5.5 Ur Specific Scott (1.005-1.025) 1.015 Urine Protein (Negative) mg/dL Negative Urine Ketones (Negative) mg/dL Negative Urine Blood (Negative) Moderate H Urine Nitrite (Negative) Negative Urine Bilirubin (Negative) Negative Urine Urobilinogen (Up TO 0.2) EU/dL 0.2 Ur Leukocyte Esterase (Negative) Negative Urine RBC (0-2) HPF 3-5 H Urine WBC (0-5) HPF 3-5 Ur Epithelial Cells (Negative) HPF Many Urine Crystals (Negative) HPF Negative Urine Bacteria (Negative) HPF Few Urine Casts (Negative) LPF Negative Urine Mucus (Negative) Negative Urine Other (Negative) Few renal Ur Culture Indicated? No/sq. contamination Urine Glucose (Negative) mg/dL Negative Range/Units 10/06/19 20:55 WBC (4.4-10.8) k/cumm RBC (4.00-5.20) m/cumm Hgb (12.0-15.5) g/dL Hct (36.0-46.0) % MCV (80-95) fL MCH (27.0-33.0) pg MCHC (32.0-36.0) g/dL RDW (11.7-14.6) % Plt Count (130-400) x1000/uL MPV (8.0-11.0) fL Immature Gran % % Neutrophils % Lymphocytes % Monocytes % Eosinophils % Basophils % Absolute Neutrophils (1.2-6.7) k/cumm Absolute Lymphocytes (1.2-3.4) k/cumm Absolute Monocytes (0.11-0.7) k/cumm Absolute Eosinophils (0.0-0.7) k/cumm Absolute Basophils (0.0-0.2) k/cumm Sodium (136-145) mmol/L 140 Potassium (3.5-5.1) mmol/L 3.4 L Chloride (98-107) mmol/L 104 Carbon Dioxide (21.0-32.0) mmol/L 28.3 Anion Gap (3-11) mmol/L 7.7 BUN (7-18) mg/dL 11 Creatinine (0.55-1.02) mg/dL 1.48 H Estimated GFR/1.73 m2 (mL/min/1.73m2) 42.63 Glucose (74-106) mg/dL 85 Calcium (8.5-10.1) mg/dL 8.3 L Total Bilirubin (0.2-1.0) mg/dL AST (15-37) U/L ALT (14-59) U/L Alkaline Phosphatase (46-116) U/L Total Protein (6.4-8.2) g/dL Albumin (3.4-5.0) g/dL Lipase (73-393) U/L Urine Color (Yellow) Urine Clarity (Clear) Urine pH (5-8) Ur Specific Scott (1.005-1.025) Urine Protein (Negative) mg/dL Urine Ketones (Negative) mg/dL Urine Blood (Negative) Urine Nitrite (Negative) Urine Bilirubin (Negative) Urine Urobilinogen (Up TO 0.2) EU/dL Ur Leukocyte Esterase (Negative) Urine RBC (0-2) HPF Urine WBC (0-5) HPF Ur Epithelial Cells (Negative) HPF Urine Crystals (Negative) HPF Urine Bacteria (Negative) HPF Urine Casts (Negative) LPF Urine Mucus (Negative) Urine Other (Negative) Ur Culture Indicated? Urine Glucose (Negative) mg/dL <Davin Beard DO - Last Filed: 10/06/19 23:24> Patient was signed out to me by my colleague Dr. Jennifer Rea, please see her HPI, physical exam, assessment and plan, at time of signout we are pending repeat BMP after rehydration. Patient's repeat labs have returned, notably stable, creatinine improving, electrolytes stable. Patient is feeling much better she has been tolerating p.o. here, drinking plenty of fluids and is requesting to go home again. Recommended to the patient that she no longer needs food, caffeinated products, for the next 48 to 72 hours as she lets her stomach settle. She does not want any more antiemetics to go home with. Discussed red flags for which to return. Repeat abdominal exam shows no signs of acute surgical abdomen. I have extensively reviewed the treatment plan and discharge instructions with the patient. I have addressed all patient concerns at this time. The patient was made aware of what symptoms to monitor for that would warrant a return to the emergency department. Discussed the plan with the patient, they demonstrate verbal understanding and agreement with our assessment and plan at this time. HPI <Lianet Rea MD - Last Filed: 10/14/19 00:48> General Mode of arrival: ambulatory . Date/Time Provider Initiated Documentation: 10/06/19 14:12 . Limitations to Documentation: no limitations . Information obtained by: patient, RN notes reviewed and old records reviewed . HPI Narrative: Lawrence Flores is a 24-year-old woman with a history of cholelithiasis, asthma presenting to the emergency department with vomiting. Patient was seen here 10/04/2019 for same. At that time patient underwent laboratory testing right upper quadrant ultrasound showing cholelithiasis without cholecystitis. Patient also had creatinine 2.0 elevated from normal on prior labs. Patient was hydrated. Per record review, patient requested discharged home. Patient reports that since being discharged she has been drinking fluids without vomiting until she tried to eat some pumpkin and began vomiting again. Patient reports that she has some right-sided abdominal/flank pain that is intermittent and unchanged since onset several days ago. Patient reports that she is not currently experiencing pain. She denies any other pain, fever, shortness of breath, cough, diarrhea, numbness, weakness, rash, dysuria. LMP 3 weeks ago. Related Data Home Medications Medication Instructions Recorded Confirmed albuterol sulfate 2.5 mg IH Q4H PRN #180 ml 03/24/19 10/06/19 Flovent HFA INHALATION PRN 05/12/19 lidocaine [Lidoderm] 1 patch TP DAILY PRN #15 each 09/29/19 10/06/19 methocarbamol 500 mg PO Q6H PRN #14 tab 09/29/19 10/06/19 naproxen [Naprosyn] 500 mg PO BID PRN #14 tab 09/29/19 10/06/19 famotidine [Pepcid] 20 mg PO DAILY #14 tab 10/04/19 10/06/19 ondansetron 4 mg PO TID PRN #6 tab 10/04/19 10/06/19 Previous Rx's Medication Instructions Recorded albuterol sulfate 2.5 mg IH Q4H PRN #180 ml 03/24/19 lidocaine [Lidoderm] 1 patch TP DAILY PRN #15 each 09/29/19 methocarbamol 500 mg PO Q6H PRN #14 tab 09/29/19 naproxen [Naprosyn] 500 mg PO BID PRN #14 tab 09/29/19 famotidine [Pepcid] 20 mg PO DAILY #14 tab 10/04/19 ondansetron 4 mg PO TID PRN #6 tab 10/04/19 Allergies Allergy/AdvReac Type Severity Reaction Status Date / Time iohexol [From Omnipaque] Allergy Intermediate Itching Unverified 10/06/19 14:27 General Stated Complaint: Abd Prob MARIELLA: 3 Review of Systems <Lianet Rea MD - Last Filed: 10/14/19 00:48> Narrative: Constitutional: denies fevers Eyes: denies eye pain ENT: denies ear pain, dental pain, sore throat Cardiovascular: denies chest pain, edema Respiratory: denies SOB, cough GI: reports abdominal pain, vomiting, denies diarrhea : denies flank pain MSK: denies back pain, neck pain, arthralgias, myalgias Skin: denies rash Neuro: denies headaches, numbness, weakness PFSH <Lianet Rea MD - Last Filed: 10/14/19 00:48> Medical History Asthma (Chronic) Cholelithiasis with acute on chronic cholecystitis (Acute) History of diverticulitis (Acute) History of sleep disorder (Acute) Hx of schizophrenia (Acute) Social History Smoking/Tobacco Use Status: Current every day Tobacco Type: cigarettes Alcohol Intake: never Drug use: Occasionally Substance use type: marijuana Details: marijuana: 03/21/19, small pipe Do you feel safe at home: Yes Do you feel safe in your relationship?: Yes Additional Social history: pt. states she is comfortable with [employer] but is aware that lead solutions architect service is available Exam <Lianet Rea MD - Last Filed: 10/14/19 00:48> Narrative Exam Narrative: Constitutional: well and [id number], pleasant, conversing normally HENT: head atraumatic/normocephalic/normal inspection, mucous membranes moist Eyes: conjunctiva normal, sclera normal, pupils 3mm b/l Neck: no stridor, normal ROM, trachea midline Chest: normal inspection Resp: normal work of breathing, LCTAB Cardio: normal rate, normal rhythm, no murmur appreciated GI: abdomen soft, mild TTP RUQ, no other abd TTP, no McBPt TTP, no rebound, no guarding, non-distended Back: normal inspection, no rash Skin: warm, dry, normal color, no rash Neuro: alert, not altered, grossly non-focal, normal tone Ext: no edema Psych: normal mood, normal affect, normal behavior Course <Lianet Rea MD - Last Filed: 10/14/19 00:48> Vital Signs Vital signs: Vital Signs Temperature 36.7 C 10/06/19 14:09 Pulse 61 10/06/19 14:09 Respiratory Rate 18 10/06/19 14:09 Blood Pressure 125/75 10/06/19 14:09 Pulse Oximetry 100 10/06/19 14:09 Temperature 36.7 C 10/06/19 14:09 Temperature Source Temporal Artery Scan 10/06/19 14:09 Pulse 61 10/06/19 14:09 Respiratory Rate 18 10/06/19 14:09 Blood Pressure 125/75 10/06/19 14:09 Blood Pressure Position Sitting 10/06/19 14:09 Pulse Oximetry 100 10/06/19 14:09 Oxygen Delivery Method Room Air 10/06/19 14:09 Oxygen Flow Rate 0 10/06/19 14:09 Pain Level 9 10/06/19 14:18 Sign Out <Lianet Rea MD - Last Filed: 10/14/19 00:48> Sign Out Data: Sign Out Comment: Patient signed out to Dr. Beard at shift change with BMP, reassessment pending, anticipate discharge as was previously discussed with patient Last updated by Lianet Rea MD at 10/06/19 20:19
[2019-10-06 14:23] LABS: Abs Immature Grans 0.01 k/cumm (0.0-0.09); Absolute Basophil Count 0.01 k/cumm (0.0-0.2); Absolute Eosinophil Count 0.35 k/cumm (0.0-0.7); Absolute Lymphocyte Count 1.84 k/cumm (1.2-3.4); Absolute Monocyte Count 0.44 k/cumm (0.11-0.7); Absolute Neutrophil Count 5.49 k/cumm (1.2-6.7); Basophils % 0.1; Eosinophils % 4.3; HCT 35.7 % (36.0-46.0); HGB 11.7 g/dL (12.0-15.5); Immature Grans % 0.1 %; Lymphocytes % 22.6; Mean Corp. HGB Concentration 32.8 g/dL (32.0-36.0); Mean Corpuscular Hemoglobin 24.7 pg (27.0-33.0); Mean Corpuscular Volume 75.3 fL (80-95); Mean Platelet Volume 10.2 fL (8.0-11.0); Monocytes % 5.4; Neutrophils % 67.5; Platelet Count 278 x1000/uL (130-400); RBC 4.74 m/cumm (4.00-5.20); White Blood Cell Count 8.14 k/cumm (4.4-10.8)
[2019-10-06 14:29] LABS: Bilirubin Negative (Negative); Blood Moderate (Negative); Clarity Clear (Clear); Glucose Negative (Negative); Ketones Negative (Negative); Leukocyte Esterase Negative (Negative); Nitrite Negative (Negative); Specific Gravity 1.015 (1.005-1.025); Urobilinogen 0.2 EU/dL (Up TO 0.2); pH 5.5 (5-8)
[2019-10-06 14:38] LABS: ALT 19 U/L (14-59); AST 11 U/L (15-37); Albumin 3.2 g/dL (3.4-5.0); Alkaline Phosphatase 67 U/L (46-116); Anion Gap 9.1 mmol/L (3-11); BUN 11 mg/dL (7-18); Bilirubin, Total 0.4 mg/dL (0.2-1.0); CO2 27.9 mmol/L (21.0-32.0); Calcium 8.6 mg/dL (8.5-10.1); Chloride 101 mmol/L (98-107); Estimated GFR 36.33 (mL/min/1.73m2); Glucose 104 mg/dL (74-106); Lipase 48 U/L (73-393); Potassium 3.6 mmol/L (3.5-5.1); Sodium 138 mmol/L (136-145)
[2019-10-06 14:40] LABS: Bacteria Few HPF (Negative); Casts Negative LPF (Negative); Crystals Negative HPF (Negative); Epithelial Cells Many HPF (Negative); Mucus Negative (Negative)
[2019-10-06 14:41] LABS: C & S Indicated? No/Sq. Contamination; Other Cells Few Renal (Negative)
[2019-10-06] MEDS: Ondansetron 4 MG/2 ML VIAL IVP (15:19)
[2019-10-06] MEDS: Normal Saline 1,000 ML 1000 ML IV ×2 (15:19→18:41)
--- NOTE | 2019-10-06 15:45 | DI.CT_ITS ---
EXAM: CT RENAL COLIC WO CLINICAL HISTORY: b/l flank pain. TECHNIQUE: Imaging Protocol: Axial computed tomography images with coronal and sagittal reformatted images were created and reviewed. CONTRAST MATERIAL: Noncontrast COMPARISON: CT CT RENAL COLIC WO from 06/01/2019 FINDINGS: ABDOMEN: Lung Bases: Normal where visualized. Liver: Normal density. No measurable mass. Gallbladder and biliary tract: Small stones in the dependent portion of the gallbladder. No abnormal gallbladder distention or wall thickening. No biliary dilation. Pancreas: Normal density, no abnormal calcifications or inflammatory process. Spleen: Normal. Kidneys: Normal size, contour and axis. No radiodense stones or obstructive uropathy. No masses seen. Adrenal glands: No masses seen. Abdominal Aorta: Abdominal portion non-dilated. PELVIS: Bladder: Symmetric distention, no gross wall thickening. Bowel: No obstruction or bowel wall thickening. Peritoneal cavity: No ascites, collection or mesenteric inflammatory response. Normal appendix. Bones: Within normal limits. IMPRESSION: Cholelithiasis. No acute abnormality. RADIATION DOSE DELIVERED: 1,002.91mGy.cm Total DLP DATA REPOSITORY: All CT scans at this facility are submitted to the National Radiology Data Registry (NRDR) Dose Index Registry (DIR) with the [employer] (ACR). RADIATION OPTIMIZATION: All CT scans at this facility use at least one of these dose optimization te chniques: automated exposure control; mA and/or kV adjustment per patient size (includes targeted exa ms where dose is matched to clinical indication); or iterative reconstruction.
[2019-10-06 16:31] VITALS: BP 130/65; PULSE 57; RESP 18; O2SAT 100
--- NOTE | 2019-10-06 17:48 | DI.VRAD_ITS ---
PROCEDURE INFORMATION: Exam: CT Abdomen And Pelvis Without Contrast Exam date and time: 10/06/2019 3:46 PM Age: 24 years old Clinical indication: Abdominal pain; Prior surgery TECHNIQUE: Imaging protocol: Computed tomography of the abdomen and pelvis without contrast. COMPARISON: CT RENAL COLIC WO 06/01/2019 8:47 AM FINDINGS: Lungs: The visualized lung bases are within normal limits. Liver: The visualized portions of the liver appeared within normal limits. Gallbladder and bile ducts: There are gallstones within the gallbladder. Pancreas: The pancreas is within normal limits. Spleen: The visualized portions of the spleen are unremarkable. Adrenals: The adrenal glands are within normal limits. Kidneys and ureters: The kidneys are unremarkable. Stomach and bowel: Unremarkable. No obstruction. No mucosal thickening. Appendix: The appendix is visualized and is within normal limits. Intraperitoneal space: Unremarkable. No free air. No significant fluid collection. Vasculature: Unremarkable. No abdominal aortic aneurysm. Lymph nodes: No enlarged lymph nodes. Bladder: The urinary bladder is unremarkable. Reproductive: The uterus and ovaries are within normal limits. Bones/joints: Unremarkable. No acute fracture. Soft tissues: Unremarkable. IMPRESSION: Cholelithiasis as above. Dictated and Authenticated by: Jaden Hodges MD. Ordering:JAYSHREE Martini MD
[2019-10-06 18:12] VITALS: BP 142/95; PULSE 58; RESP 20; TEMP 36.6; O2SAT 100
[2019-10-06 21:09] LABS: Anion Gap 7.7 mmol/L (3-11); BUN 11 mg/dL (7-18); CO2 28.3 mmol/L (21.0-32.0); CREATININE 1.48 mg/dL (0.55-1.02); Calcium 8.3 mg/dL (8.5-10.1); Chloride 104 mmol/L (98-107); Estimated GFR 42.63 (mL/min/1.73m2); Glucose 85 mg/dL (74-106); Potassium 3.4 mmol/L (3.5-5.1); Sodium 140 mmol/L (136-145)
[2019-10-06 21:38] VITALS: BP 133/80; PULSE 53; RESP 18; TEMP 36.6; O2SAT 100
== END 2019-10-06 21:45 | disposition home or self-care (01) ==
PROVIDERS: Student in an Organized Health Care Education/Training Program; Emergency Provider Student in an Organized Health Care Education/Training Program; PCP Nurse Practitioner Family
DX: R11.2 Nausea with vomiting, unspecified (principal)
CPT/HCPCS: 36415; 80048; 80053; 81025; 83690; 96361; 96374; 99284; 74176; 76705; 81003; 81015; 85025; 99281; J2405

== ENCOUNTER 2019-10-23 09:50 | Emergency (ER) | payer MEDICAID, SELFPAY ==
[2019-10-23] VITALS (18 sets, daily range): BP systolic 125–158; BP diastolic 74–106; PULSE 70–85; RESP 20; TEMP 36.4; O2SAT 96–100
--- NOTE | 2019-10-23 10:00 | DI.RAD_ITS ---
EXAM: XR PORTABLE CHEST AP CLINICAL HISTORY: Cough, hx of asthma TECHNIQUE: 2D digital imaging was performed. COMPARISON: CR XR PORTABLE CHEST AP from 03/24/2019 FINDINGS: MEDIASTINUM: Normal. HEART: Normal. PULMONARY VASCULATURE: Normal. LUNGS: Clear. PLEURAL SPACE: No pleural effusion or pneumothorax. BONE:Normal. OTHER FINDINGS:Normal. IMPRESSION: No acute pulmonary findings. DATA REPOSITORY: RADIATION DOSE DELIVERED:
--- NOTE | 2019-10-23 10:03 | W.ED.GENAD ---
Discharge Plan Disposition Patient Disposition: HOME Condition: Stable Discharge Details Chief Complaint: RespSymp Clinical Impression: Asthma exacerbation Primary Care Provider: Chandni Finn ED Provider: Nikia Bose Home Meds and New Rx's Prescriptions: New albuterol sulfate 90 mcg/actuation HFA aerosol inhaler 1 - 2 puff IH QID PRN (Reason: shortness of breath or wheezing) Qty: 8 RF: 0 prednisone 20 mg tablet 60 mg PO DAILY 5 Days Qty: 15 RF: 0 Discharge Instructions Instructions: Asthma (ED) Additional Instructions: Take medications as prescribed, do not use other peoples medications. Do not use albuterol more than 4-5 times a day. Use spacer as directed. If you need to use albuterol inhaler more than they need to be seen. Follow up with primary care provider in 3-5 days. Return to ED sooner if any worsening or concerns. Increase oral fluids. o Out of an abundance of precaution it is highly recommended that you self quarantine yourself until your results come back or until symptom-free for greater than 24 to 48 hours. It would be prudent to wear a mask at all times, always wash her hands frequently, and follow-up closely with your primary care provider. It is recommended that you call your primary care provider prior to reassessment. If you are going to a health facility, please call/contact them before you arrive. At this time based on your current symptoms the CDC does not recommend admission, and there is no current clinical indication for your admission here at the hospital. However it is vitally important to monitor your symptoms closely, and if you notice any worsening of your symptoms, or any new symptoms such as worsening shortness of breath, difficulty breathing, persistent fever, worsening chills, chest pain, numbness, weakness, or fainting please call and then return immediately to the emergency department for reevaluation. Please call your primary care provider as soon as possible to make them aware of your current situation and for continued monitoring. As always, it was a pleasure participating in your medical care today. Stand Alone Forms: PENDING COVID-19 TESTING, Work Release Referrals: Chandni Finn [Primary Care Provider] - Discharge Data Discharge Date/Time-TO BE ENTERED AT DEPARTURE: 10/23/19 11:30 Medical Decision Making 24-year-old female presents the ED with asthma exacerbation. 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 She reports mild anterior chest discomfort which is associated with coughing. Prior to arrival she received 4 puffs albuterol MDI and 125 mg of Solu-Medrol, she is now improved upon initial exam. Lungs are clear to auscultation bilaterally, no wheezes. She states that somebody gave her an albuterol inhaler yesterday which she has been using because she is out of her albuterol at home. She denies sick contacts, no fever, chills nausea vomiting diarrhea. Denies any recent travel. No other complaints at this time. Due to patient's symptoms Covid testing will be done at this time, out of an abundance of caution, chest x-ray ordered and will give patient a new albuterol MDI inhaler to take home. EXAM: XR PORTABLE CHEST AP CLINICAL HISTORY: Cough, hx of asthma TECHNIQUE: 2D digital imaging was performed. COMPARISON: CR XR PORTABLE CHEST AP from 03/24/2019 FINDINGS: MEDIASTINUM: Normal. HEART: Normal. PULMONARY VASCULATURE: Normal. LUNGS: Clear. PLEURAL SPACE: No pleural effusion or pneumothorax. BONE:Normal. OTHER FINDINGS:Normal. IMPRESSION: No acute pulmonary findings. Patient reevaluation she feels much better, still has lungs clear to auscultation no wheezing. Patient was given an albuterol MDI inhaler in department and a new prescription. Instructed to follow-up with PCP regarding asthma care, verbalized understanding. Patient placed on prednisone 60 mg daily x5 days. Krysta testing was done in department out of an abundance of caution. Patient given pending COVID test quarantine instructions prior to discharge. She remained hemodynamically stable throughout stay. This text was generated using [employer] system, please disregard any oddities of phrase or misspellings. HPI General Mode of arrival: EMS. Date/Time Provider Initiated Documentation: 10/23/19 10:02. Limitations to Documentation: no limitations. Information obtained by: patient. HPI Narrative: 24-year-old female presents the ED with asthma exacerbation. 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 She reports mild anterior chest discomfort which is associated with coughing. Prior to arrival she received 4 puffs albuterol MDI and 125 mg of Solu-Medrol, she is now improved upon initial exam. Lungs are clear to auscultation bilaterally, no wheezes. She states that somebody gave her an albuterol inhaler yesterday which she has been using because she is out of her albuterol at home. She denies sick contacts, no fever, chills nausea vomiting diarrhea. Denies any recent travel. No other complaints at this time. Related Data Home Medications Medication Instructions Recorded Confirmed albuterol sulfate 1 - 2 puff IH QID PRN #8 gm 10/23/19 prednisone 60 mg PO DAILY 5 Days #15 tab 10/23/19 Previous Rx's Medication Instructions Recorded albuterol sulfate 1 - 2 puff IH QID PRN #8 gm 10/23/19 prednisone 60 mg PO DAILY 5 Days #15 tab 10/23/19 Allergies Allergy/AdvReac Type Severity Reaction Status Date / Time iohexol [From Omnipaque] Allergy Intermediate Itching Unverified 10/23/19 09:58 General Stated Complaint: RespSymp MARIELLA: 3 Review of Systems Narrative: Constitutional: Negative for weight loss, alert and oriented, well groomed, normal body habitus, appears comfortable. HEENT: Denies trauma, headaches, blurry vision, nasal discharge, sore throat, trouble swallowing. Chest: Denies chest pain, palpitations, irregular rhythm, hypertension. Respiratory: Positive shortness of breath, cough. GI: Denies abdominal pain, nausea, vomiting, diarrhea, constipation. : Denies dysuria, hematuria, flank pain, rectal bleeding. Neuro: Denies dizziness, blurry vision, weakness, syncope, headache or facial numbness. Hematologic: Denies easy bruising, intolerance to heat or cold, hair loss. [facility] Medical History Asthma (Chronic) Cholelithiasis with acute on chronic cholecystitis (Acute) History of diverticulitis (Acute) History of sleep disorder (Acute) Hx of schizophrenia (Acute) Social History Smoking/Tobacco Use Status: Current every day Tobacco Type: cigarettes Alcohol Intake: never Drug use: Occasionally Substance use type: marijuana Details: marijuana: 03/21/19, small pipe Do you feel safe at home: Yes Do you feel safe in your relationship?: Yes Additional Social history: pt. 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 Appears stated age. Normal body habitus. Head: Normocephalic, no trauma. Eyes: Pupils PERRLA, Red reflex noted, EOM's intact. Eyelids symmetrical without lesions, discharge, or swelling. ENT: Bilateral TM's WNL, External ear normal to inspection, no mastoid TTP, swelling, or erythema, Nasal turbinates WNL, no nasal discharge. Normal dentition, Posterior pharynx WNL, no exudate. Chest: RRR, Normal S1, S2, distal pulses intact. Resp: Lungs clear to auscultation bilaterally, no wheezes, rales, or rhonchi. Musculoskeletal: Normal gait, 5/5 strength to all four extremities. Skin: No suspicious rashes or lesions. Capillary refill less than 2 sec. Neurologic: Cranial nerves II-XII intact. Alert and oriented x 3. DTR's intact. Hematologic/Lymphatic: No ecchymosis, no lymphadenopathy. Course Vital Signs Vital signs: Vital Signs Temperature 36.4 C L 10/23/19 09:52 Pulse 85 10/23/19 09:52 Respiratory Rate 10/23/19 09:52 Blood Pressure 125/77 10/23/19 09:52 Pulse Oximetry 99 10/23/19 09:52 Temperature 36.4 C L 10/23/19 09:52 Pulse 85 10/23/19 09:52 Respiratory Rate 20 10/23/19 09:52 Respiratory Effort 10/23/19 09:52 Blood Pressure 125/77 10/23/19 09:52 Pulse Oximetry 99 10/23/19 09:52 Oxygen Delivery Method Room Air 10/23/19 09:52 Oxygen Flow Rate 0 10/23/19 09:52 Pain Level 6 10/23/19 09:52
[2019-10-23] MEDS: Albuterol HFA 8 GM 60 PUFF INH IH (10:21)
--- NOTE | 2019-10-23 11:24 | NUR.NOTE ---
Nursing Note: Faxed referral to PCP for follow up in 3 to 5 days. Dione Perez
[2019-10-24 17:13] LABS: COVID-19 RT-PCR UVMMC Result Negative (Negative)
--- NOTE | 2019-10-27 10:06 | PDOC.ERCMPRO ---
- If Service Date Differs Date of service: 10/27/19 Time of Service: 10:06 Care Management Progress Note Lawrence is seen in the ED on 10/23/2019 for asthma exacerbation. At the request of ED provider, MICHELLE coordinates a follow-up appointment for Lawrence with her PCP, OLLIE Cox, of the [facility].
== END 2019-10-23 11:30 | disposition home or self-care (01) ==
PROVIDERS: Emergency Provider Registered Nurse Emergency; PCP Nurse Practitioner Family
DX: J45.901 Unspecified asthma with (acute) exacerbation (principal); R06.02 Shortness of breath; R05 Cough; Z11.59 Encounter for screening for other viral diseases
CPT/HCPCS: 99284; U0003; 71045

== ENCOUNTER 2019-11-16 08:38 | Emergency (ER) | payer MEDICAID, SELFPAY ==
[2019-11-16] VITALS (17 sets, daily range): BP systolic 97–126; BP diastolic 51–70; PULSE 66–93; RESP 4–31; TEMP 36.6–36.7; O2SAT 97–100
--- NOTE | 2019-11-16 08:45 | DI.RAD_ITS ---
EXAM: XR PORTABLE CHEST AP CLINICAL HISTORY: cough/asthma TECHNIQUE: 2D digital imaging was performed. COMPARISON: CR XR PORTABLE CHEST AP from 10/23/2019 FINDINGS: LUNGS: Clear. No pleural abnormality seen. HEART: Normal. MEDIASTINUM: Normal. OTHER FINDINGS: None. IMPRESSION: No acute pulmonary findings. DATA REPOSITORY: RADIATION DOSE DELIVERED:
--- NOTE | 2019-11-16 08:49 | ED.GENADUL_ITS ---
Discharge Plan Disposition Patient Disposition: HOME Condition: Stable Discharge Details Chief Complaint: SOB Clinical Impression: Asthma exacerbation, Acute bronchospasm Primary Care Provider: Chandni Finn ED Provider: Jack Paul Home Meds and New Rx's Prescriptions: New prednisone 20 mg tablet 60 mg PO DAILY 5 Days Qty: 15 RF: 0 albuterol sulfate 2.5 mg/0.5 mL solution for nebulization 5 mg IH Q6H PRN (Reason: bronchospasm) Qty: 30 RF: 0 Continued albuterol sulfate 90 mcg/actuation HFA aerosol inhaler 1 - 2 puff IH QID PRN (Reason: shortness of breath or wheezing) Qty: 8 RF: 0 Discharge Instructions Instructions: Asthma (ED), Bronchospasm (ED) Additional Instructions: Home to rest today. Begin Symbicort inhaler twice daily. You must stop smoking and ask others not to smoke in your presence. Take prednisone as prescribed. We will ask care management to make you a follow-up in primary care clinic for recheck. Return for recurrent difficulty breathing or any other acute concerns. Medical Decision Making 24-year-old female with recurrent asthma and wheezing. She continues to smoke, has had difficulty filling prescriptions in obtaining follow-up and has now run out of her inhaler after being seen in the emergency department on October 22. She has had a cough with some production of sputum. No fever. She had a negative coronavirus/COVID-19 test that was negative on October 22. Patient underwent screening chest x-ray, DuoNeb updraft, oral prednisone. Seen by respiratory therapy. 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 The patient's chest x-ray is unremarkable. She is improving with beta agonist and systemic steroids. She will require a burst of oral steroids and in addition it is important that she maintain outpatient follow-up. RT will make a PFT referral. I agree that starting her on a inhaled steroid will be of benefit and we will both provide a rescue inhaler and refill of her albuterol for nebulization. She is stable and improving. She was also seen by care management in the emergency department. HPI General Mode of arrival: ambulatory . Date/Time Provider Initiated Documentation: 11/16/19 09:28 . Limitations to Documentation: no limitations . Information obtained by: patient . History of Present Illness 24 year old F presents to the emergency department with the chief complaint of Asthma, recurrent cough, ran out of inhaler, described as moderate and similar to prior episodes, Quality is described as dull and constant, and is localized to the chest. Patient reports no radiation. Patient started experiencing this day(s) and it has been constant. No relieving factors improve symptom(s), Other factors that worsen symptoms (Cigarettes) . Patient notes cough and shortness of breath; denies fever/chills. Patient did receive the following treatments prior to arrival, none Related Data Home Medications Medication Instructions Recorded Confirmed albuterol sulfate 1 - 2 puff IH QID PRN #8 gm 10/23/19 11/16/19 albuterol sulfate 5 mg IH Q6H PRN #30 each 11/16/19 prednisone 60 mg PO DAILY 5 Days #15 tab 11/16/19 Previous Rx's Medication Instructions Recorded albuterol sulfate 1 - 2 puff IH QID PRN #8 gm 10/23/19 albuterol sulfate 5 mg IH Q6H PRN #30 each 11/16/19 prednisone 60 mg PO DAILY 5 Days #15 tab 11/16/19 Allergies Allergy/AdvReac Type Severity Reaction Status Date / Time iohexol [From Omnipaque] Allergy Intermediate Itching Unverified 11/16/19 08:47 General Stated Complaint: SOB MARIELLA: 3 Review of Systems Narrative: 6 systems reviewed and otherwise negative [facility] Medical History Asthma (Chronic) Cholelithiasis with acute on chronic cholecystitis (Acute) History of diverticulitis (Acute) History of sleep disorder (Acute) Hx of schizophrenia (Acute) Social History Smoking/Tobacco Use Status: Current every day Tobacco Type: cigarettes Alcohol Intake: never Drug use: Occasionally Substance use type: marijuana Details: marijuana: 03/21/19, small pipe Do you feel safe at home: Yes Do you feel safe in your relationship?: Yes Additional Social history: pt. states she is comfortable with [employer] but is aware that behavioral health rn service is available Exam Narrative Exam Narrative: GEN: awake, alert, oriented 3. Pleasant, well groomed, interactive. HEAD: Normocephalic, atraumatic ENT: Mucous membranes moist, oropharynx unremarkable, External ear exam unremarkable EYES: PERRL, EOMI NECK: Full ROM, no RENETTA, no menigismus CHEST/RESP: Nontender, diminished with end expiratory wheezes bilaterally. Patient able to speak in full sentences CARDIOVASCULAR: RRR, no murmur, rub bryan. 2+ Rad pulse bilateral ABDOMEN: Soft, nontender, no mass. +Bowel sounds EXT: Full ROM, no edema, no rash Neuro: Grossly normal neurologic exam, conversant, interactive. Psych: Speech fluent, thoughts congruent, affect normal Course Vital Signs Vital signs: Vital Signs Temperature 36.7 C 11/16/19 08:43 Pulse 88 11/16/19 08:43 Respiratory Rate 18 11/16/19 08:43 Blood Pressure 117/51 L 11/16/19 08:43 Pulse Oximetry 100 11/16/19 08:43 Temperature 36.7 C 11/16/19 08:43 Temperature Source Temporal Artery Scan 11/16/19 08:43 Pulse 88 11/16/19 08:43 Respiratory Rate 18 11/16/19 08:43 Respiratory Effort Accessory Muscle Use 11/16/19 08:46 Blood Pressure 117/51 L 11/16/19 08:43 Blood Pressure Position Sitting 11/16/19 08:43 Pulse Oximetry 100 11/16/19 08:43 Oxygen Delivery Method Room Air 11/16/19 08:43 Oxygen Flow Rate 0 11/16/19 08:43 Pain Level 6 11/16/19 08:43
[2019-11-16] MEDS: Albuterol/Ipratropium 3 ML UPD VIAL UPD ×2 (09:20→09:23)
[2019-11-16] MEDS: predniSONE 20 MG TAB 60 MG PO (09:28)
--- NOTE | 2019-11-16 09:35 | NUR.NOTE ---
referral faxed to [facility] Chandni Finn.Nursing Note:
--- NOTE | 2019-11-16 09:49 | DI.VRAD_ITS ---
PROCEDURE INFORMATION: Exam: XR Chest, 1 View Exam date and time: 11/16/2019 9:11 AM Age: 24 years old Clinical indication: Other: Cough/asthma TECHNIQUE: Imaging protocol: XR of the chest Views: 1 view. COMPARISON: CR XR PORTABLE CHEST AP 10/23/2019 10:28 AM FINDINGS: Lungs: Unremarkable. No consolidation. Pleural space: Unremarkable. No pleural effusion. No pneumothorax. Heart/Mediastinum: Unremarkable. No cardiomegaly. Bones/joints: Unremarkable. IMPRESSION: No acute findings. Dictated and Authenticated by: Nini Rain MD. Ordering:VARGAS Santiago MD
[2019-11-16] MEDS: Budesonide/Formoterol 80/4.5 6.9 GM 60 PUFF INH IH (09:52)
--- NOTE | 2019-11-17 14:48 | CMPROGNOTE_ITS ---
- If Service Date Differs Date of service: 11/16/19 Time of Service: 14:48 Care Management Progress Note S/O: Lawrence comes to the ED via ambulance for the second time this month due to asthma exacerbation. CM meets with Lawrence at the request of ED provider to explore barriers to her taking her medication as prescribed. Lawrence states she sometimes is unable to last picker her medication from the pharmacy because of lapses in her Medicaid. She also reports difficulty getting to scheduled appointments with her PCP due to transportation issues. Lawrence does not drive and depends on friends and [facility] to get her to appointments. She shares her PCP's office used to set up [facility] rides for her when she had appointments scheduled but they have stopped doing that. She is aware she can call [facility] herself to set up rides to medical appointments and knows they need a 3-day notice. She states sowmya michaud struggles with setting up rides because often she can't get through to [facility] on the telephone. Lawrence also shares she has been having an increasing number of asthma attacks lately. A: Lawrence is a 24 year old female who presents in the ED for the second time this month for shortness of breath. P: Lawrence is provided contact information for [employer] and instructed to call them if and when her Medicaid lapses. CM will outreach to the chronic health care law specialist at the [facility] on Sunday to inquire about the possibility of Lawrence being seen by their office more regularly and to ask if they can assist her with scheduling rides to her medical appointments.
== END 2019-11-16 10:47 | disposition home or self-care (01) ==
LOC: ER 10:03
PROVIDERS: Emergency Provider Emergency Medicine; PCP Nurse Practitioner Family
DX: J45.901 Unspecified asthma with (acute) exacerbation (principal); Z91.138 Patient's unintentional underdosing of medication regimen for other reason; F17.210 Nicotine dependence, cigarettes, uncomplicated
CPT/HCPCS: 94640; 99284; 71045; J7512; J7620

== ENCOUNTER 2019-11-19 03:34 | Outpatient (CLI) | payer MEDICAID, SELFPAY ==
[2019-11-19] MEDS: Albuterol HFA 18 GM 200 PUFF INH IH (16:12)
[2019-11-19] MEDS: Inhaler, Assist Device 1 EACH MC (16:13)
--- NOTE | 2019-11-20 10:25 | W.PFT ---
Date of service: 11/19/19 Time of Service: 03:04 Pulmonary Function Test Result Interpretation Spirometry: Spirometry shows no evidence of obstructive airways disease, no bronchodilator response Lung Volumes: No evidence of restriction Diffusion Capacity: Normal Airway Pressure: Normal Impression Normal pulmonary function study clinical correlation recommended Clinical Correlation therefore is recommended.
== END 2019-11-19 03:54 ==
PROVIDERS: PCP Nurse Practitioner Family; Visit Provider Nurse Practitioner Family
DX: R06.09 Other forms of dyspnea (principal); R05 Cough; Z72.0 Tobacco use; J45.909 Unspecified asthma, uncomplicated
CPT/HCPCS: 94060; 94726; 94729

== ENCOUNTER 2020-02-27 11:56 | Emergency (ER) | payer MEDICAID, SELFPAY ==
[2020-02-27 12:01] VITALS: BP 133/92; PULSE 77; RESP 18; TEMP 36.5; O2SAT 96
[2020-02-27 13:08] LABS: Abs Immature Grans 0.02 10^3/uL (0.0-0.06); Absolute Basophil Count 0.04 10^3/uL (0.0-0.2); Absolute Eosinophil Count 0.54 10^3/uL (0.0-0.7); Absolute Lymphocyte Count 2.64 10^3/uL (1.2-3.4); Absolute Monocyte Count 0.39 10^3/uL (0.1-0.8); Absolute Neutrophil Count 4.75 10^3/uL (1.2-6.7); Basophils % 0.5; Eosinophils % 6.4; HCT 39.1 % (36.0-46.0); HGB 12.6 g/dL (11.2-15.7); Immature Grans % 0.2; Lymphocytes % 31.5; MCH 24.7 pg (27.0-33.0); MCHC 32.2 % (32.0-36.0); MCV 76.5 fL (80-95); MPV 9.8 fL (8.0-11.0); Monocytes % 4.7; Neutrophils % 56.7; Nucleated RBC 0 %; Platelet Count 284 10^3/uL (130-400); RBC 5.11 10^6/uL (3.93-5.22); RDW 15.7 % (11.7-14.6); RDW-SD 43.4 fL; WBC 8.38 10^3/uL (4.4-10.8)
[2020-02-27 13:24] LABS: ALT 19 U/L (14-59); AST 13 U/L (15-37); Albumin 3.5 g/dL (3.4-5.0); Alkaline Phosphatase 71 U/L (46-116); Anion Gap 5.4 mmol/L (3-11); BUN 7 mg/dL (7-18); Bilirubin, Total 0.2 mg/dL (0.2-1.0); CO2 27.6 mmol/L (21.0-32.0); CREATININE 0.69 mg/dL (0.55-1.02); Calcium 8.6 mg/dL (8.5-10.1); Chloride 104 mmol/L (98-107); Glucose 81 mg/dL (74-106); HCG Quant, Pregnancy 14 mIU/mL (1-3); Potassium 3.9 mmol/L (3.5-5.1); Sodium 137 mmol/L (136-145)
--- NOTE | 2020-02-27 13:54 | DI.US_ITS ---
EXAM: US OB 1ST TRIMESTER CLINICAL HISTORY: pain, vaginal bleeding, r/o ectopic. TECHNIQUE: Transabdominal and transvaginal pelvic ultrasound was performed using standard protocol. COMPARISON: No exams were available for comparison FINDINGS: UTERUS: Position: Retroverted Size: 8.6 long by 5.1 AP by 4.8 transverse cm Endometrium: 0.8 cm. Normal for patient's menstrual status. No evidence of an intrauterine gestation. Myometrium: Unremarkable. Cervix: Unremarkable. OVARIES: Right: 3.2 x 1.8 x 1.8 cm Cyst or mass: None. Left: 2.9 x 2.3 x 2.3 cm Cyst or mass: None. DOPPLER: Color: Symmetric and uniform flow to both ovaries. No hyperemia. Duplex: Normal ovarian arterial waveforms visualized. CUL-DE-SAC: Free fluid: Small amount of free fluid is in the right adnexa. Other: None. IMPRESSION: 1. No sonographic appearance of an intrauterine gestation. No adnexal mass or abnormality. 2. Normal-appearing uterus with endometrial stripe within normal limits. 3. Unremarkable bilateral ovaries. 4. Findings were discussed with the emergency department on the date of the examination. DATA REPOSITORY:
--- NOTE | 2020-02-27 14:06 | ED.GENADUL_ITS ---
Discharge Plan Disposition Patient Disposition: HOME Condition: Stable Discharge Details Clinical Impression: Threatened miscarriage Primary Care Provider: Chandni Finn ED Provider: Bruno Rea Home Meds and New Rx's Prescriptions: New PNV #[id number] acid-omega3 30 mg iron-10 mg iron-1 mg capsule 1 cap PO DAILY Qty: 60 RF: 2 Continued albuterol sulfate 90 mcg/actuation HFA aerosol inhaler 1 - 2 puff IH QID PRN (Reason: shortness of breath or wheezing) Qty: 8 RF: 0 albuterol sulfate 2.5 mg/0.5 mL solution for nebulization 5 mg IH Q6H PRN (Reason: bronchospasm) Qty: 30 RF: 0 Discharge Instructions Instructions: Threatened Miscarriage (ED) Additional Instructions: No heavy lifting and no sexual activity until cleared by your sales and marketing intern. Follow-up with your sales and marketing intern early next week. Return to the ER for any worsening or new concerning symptoms. Referrals: [facility] [Provider Group] Medical Decision Making 24-year-old female -0-1-0 at unknown dating, last menstrual period 01/21/2020, here with abdominal cramping since yesterday and spotting today after episode of heavy lifting yesterday. Hemodynamically stable with no active vaginal bleeding. Labs reviewed and beta hCG quant minimally elevated at 14. Suspect early first trimester . Given cramping and bleeding will obtain pelvic ultrasound to assess for ectopic . Type and screen was performed and patient is a positive, no indication for RhoGam. 15:00 --ultrasound of the pelvis was performed by educational technologist she notes some free fluid around right ovary, ovaries appear normal, no ectopic visualized, no gestational sac or yolk sac visualized. I called and spoke with Dr. Hawk, on-call sales and marketing intern, I discussed ED presentation and course including diagnostic, she recommends discharge with outpatient follow-up early next week. Plan discussed with the patient who is in agreement. Usual and customary discharge instructions reviewed with the patient. HPI General Mode of arrival: ambulatory . Date/Time Provider Initiated Documentation: 02/27/20 12:04 . Limitations to Documentation: no limitations . Information obtained by: EMS . HPI Narrative: 24-year-old female here with chief complaint of abdominal cramping. Patient notes lower abdominal bilateral cramping that started yesterday and has been intermittent waxing and waning since onset. Pain seemed to start after lifting heavy box yesterday. She did take a home test that was positive yesterday. She does note today she has had some spotting blood when she wiped. Patient notes last menstrual period 930. Patient does state that she has been once in the past and had a miscarriage. Related Data Home Medications Medication Instructions Recorded Confirmed albuterol sulfate 1 - 2 puff IH QID PRN #8 gm 10/23/19 11/16/19 albuterol sulfate 5 mg IH Q6H PRN #30 each 11/16/19 PNV #[id number] acid-omega3 1 cap PO DAILY #60 cap 02/27/20 Previous Rx's Medication Instructions Recorded albuterol sulfate 1 - 2 puff IH QID PRN #8 gm 10/23/19 albuterol sulfate 5 mg IH Q6H PRN #30 each 11/16/19 PNV #[id number]-togss acid-omega3 1 cap PO DAILY #60 cap 02/27/20 Allergies Allergy/AdvReac Type Severity Reaction Status Date / Time iohexol [From Omnipaque] Allergy Intermediate Itching Unverified 11/16/19 08:47 General Stated Complaint: Abd Prob MARIELLA: 3 Review of Systems All systems reviewed & are unremarkable except as noted in HPI and below Gastrointestinal Gastrointestinal: Reports as per HPI Genitourinary Genitourinary: Reports as per HPI, Denies difficulty voiding, Denies dysuria and Denies vaginal discharge [facility] Medical History (Updated 02/27/20 @ 15:01 by Bruno Rea MD) Asthma Cholelithiasis with acute on chronic cholecystitis History of diverticulitis History of sleep disorder Hx of schizophrenia Social History Smoking/Tobacco Use Status: Current every day Tobacco Type: cigarettes Smoking risk assessment performed?: Yes Alcohol Intake: never Drug use: Occasionally Substance use type: marijuana Details: marijuana: 03/21/19, small pipe Do you feel safe at home: Yes Do you feel safe in your relationship?: Yes Additional Social history: pt. states she is comfortable with French but is aware that tinter photograph service is available Exam Const General: cooperative and no acute distress HENMT Mouth: moist mucous membranes Eyes Conjunctivae: normal conjunctivae Sclera: normal sclerae Neck Neck: supple Resp Auscultation: clear to auscultation bilaterally, no rales, no rhonchi and no wheezes Cardio Rate: regular rate and not tachycardic Rhythm: regular rhythm GI Inspection: non-distended Palpation: soft, not firm, no guarding, no masses, not rigid and tender (Minimal lower abdomen bilateral and epigastric) with no rebound tenderness Auscultation: normal bowel sounds Skin General skin exam: no rashes or lesions noted Neuro General: patient alert, patient awake, patient oriented x3 and tone normal Extrem General: no edema Psych Appearance: grossly normal Mental Status: mental status grossly normal Speech and Movement: speech and movement normal Course Vital Signs Vital signs: Vital Signs Temperature 36.5 C 02/27/20 12:01 Pulse 77 02/27/20 12:01 Respiratory Rate 18 02/27/20 12:01 Blood Pressure 133/92 H 02/27/20 12:01 Pulse Oximetry 96 02/27/20 12:01 Temperature 36.5 C 02/27/20 12:01 Temperature Source Temporal Artery Scan 02/27/20 12:01 Pulse 77 02/27/20 12:01 Respiratory Rate 18 02/27/20 12:01 Blood Pressure 133/92 H 02/27/20 12:01 Pulse Oximetry 96 02/27/20 12:01 Oxygen Delivery Method Room Air 02/27/20 12:01 Oxygen Flow Rate 0 02/27/20 12:01 Lab/Test Results Lab/Test Results: Laboratory Tests Range/Units 02/27/20 02/27/20 02/27/20 12:55 12:55 12:55 WBC (4.4-10.8) 10^3/uL 8.38 RBC (3.93-5.22) 10^6/uL 5.11 Hgb (11.2-15.7) g/dL 12.6 Hct (36.0-46.0) % 39.1 MCV (80-95) fL 76.5 L MCH (27.0-33.0) pg 24.7 L MCHC (32.0-36.0) % 32.2 RDW (11.7-14.6) % 15.7 H Plt Count (130-400) 10^3/uL 284 MPV (8.0-11.0) fL 9.8 Immature Gran % 0.2 Neutrophils % 56.7 Lymphocytes % 31.5 Monocytes % 4.7 Eosinophils % 6.4 Basophils % 0.5 Nucleated RBC % % 0 Absolute Neutrophils (1.2-6.7) 10^3/uL 4.75 Absolute Lymphocytes (1.2-3.4) 10^3/uL 2.64 Absolute Monocytes (0.1-0.8) 10^3/uL 0.39 Absolute Eosinophils (0.0-0.7) 10^3/uL 0.54 Absolute Basophils (0.0-0.2) 10^3/uL 0.04 Sodium (136-145) mmol/L 137 Potassium (3.5-5.1) mmol/L 3.9 Chloride (98-107) mmol/L 104 Carbon Dioxide (21.0-32.0) mmol/L 27.6 Anion Gap (3-11) mmol/L 5.4 BUN (7-18) mg/dL 7 Creatinine (0.55-1.02) mg/dL 0.69 Estimated GFR/1.73 m2 (mL/min/1.73m2) >= 60.00 Glucose (74-106) mg/dL 81 Calcium (8.5-10.1) mg/dL 8.6 Total Bilirubin (0.2-1.0) mg/dL 0.2 AST (15-37) U/L 13 L ALT (14-59) U/L 19 Alkaline Phosphatase (46-116) U/L 71 Total Protein (6.4-8.2) g/dL 8.0 Albumin (3.4-5.0) g/dL 3.5 Beta HCG, Quant (1-3) mIU/mL 14 H Patient ABO/Rh A Positive Antibody Screen Negative POC- Test(urine) Negative
[2020-02-29] MEDS: Prenatal Multivitamin w/CA,FE TAB 1 TAB PO (03:20)
== END 2020-02-27 15:25 | disposition home or self-care (01) ==
PROVIDERS: Emergency Provider Student in an Organized Health Care Education/Training Program; PCP Nurse Practitioner Family
DX: O20.0 Threatened abortion (principal); O26.891 Other specified pregnancy related conditions, first trimester; X50.0XXA Overexertion from strenuous movement or load, initial encounter
CPT/HCPCS: 36415; 80053; 81025; 86850; 86900; 86901; 99284; 76801; 84702; 85025

== ENCOUNTER 2020-02-29 17:08 | Emergency (ER) | payer MEDICAID, SELFPAY ==
[2020-02-29 16:57] VITALS: BP 129/86; PULSE 79; RESP 20; TEMP 37.1; O2SAT 99
--- NOTE | 2020-02-29 17:05 | ED.GENADUL_ITS ---
Discharge Plan Disposition Patient Disposition: HOME Condition: Stable Discharge Details Clinical Impression: Incomplete miscarriage Primary Care Provider: Chandni Finn ED Provider: Erin Bradford Home Meds and New Rx's Prescriptions: Continued albuterol sulfate 90 mcg/actuation HFA aerosol inhaler 1 - 2 puff IH QID PRN (Reason: shortness of breath or wheezing) Qty: 8 RF: 0 albuterol sulfate 2.5 mg/0.5 mL solution for nebulization 5 mg IH Q6H PRN (Reason: bronchospasm) Qty: 30 RF: 0 PNV #[id number] acid-omega3 30 mg iron-10 mg iron-1 mg capsule 1 cap PO DAILY Qty: 60 RF: 2 Discharge Instructions Instructions: Miscarriage (ED) Additional Instructions: Drink plenty of fluids and get plenty of rest. You may expect to continue to have vaginal bleeding and pain. You can alternate Tylenol and Motrin as needed and directed for pain. [facility]. Return immediately to the emergency department if you develop any worsening or new concerning symptoms such as fever, dizziness, shortness of breath or heavy vaginal bleeding. Discharge Data Discharge Date/Time-TO BE ENTERED AT DEPARTURE: 02/29/20 19:52 Discharge Physician: Erin Bradford Medical Decision Making 24-year-old female G2, P0 with 1 previous miscarriage in early currently 5 weeks and 6 days presents for vaginal bleeding and pelvic pain for the past 2 days. Minimal vaginal spotting today. No pain today. Beta quant 14 on ED visit 2 days ago. No ectopic but no gestational yolk sac noted on ultrasound 2 days ago. Vitals within normal limits. Abdomen soft nontender. Cervical os open with mild oozing of clear mucus and scant vaginal bleeding. No obvious tissue noted. Repeat beta quant today 6. Rh+ fr om labs 2 days ago. Hemoglobin stable at 12. Patient reported passing pink tissue today. Suspect incomplete versus inevitable . Case discussed with Dr. Hawk who recommends patient follow-up with your scheduled appointment with Dr. Wayne tomorrow afternoon with plan for recheck of her beta hCG in 48 hours. Patient was advised to expect continued bleeding and cramping and to alternate Tylenol and Motrin as needed. Usual and customary return precautions given prior to discharge. Medical Records Medical records reviewed: Yes I reviewed the patient's medical records. Lab Data Lab results reviewed: Yes I reviewed the patient's lab results. Labs: 02/29/20 17:23 Urine - Reflex from Ua Urine Culture - Preliminary Gram Positive Miguelina,Mixed Gram Negative Boyd Laboratory Tests Range/Units 02/29/20 02/29/20 02/29/20 17:05 17:05 17:23 WBC (4.4-10.8) 10^3/uL 10.36 RBC (3.93-5.22) 10^6/uL 5.23 H Hgb (11.2-15.7) g/dL 12.9 Hct (36.0-46.0) % 39.8 MCV (80-95) fL 76.1 L MCH (27.0-33.0) pg 24.7 L MCHC (32.0-36.0) % 32.4 RDW (11.7-14.6) % 15.4 H Plt Count (130-400) 10^3/uL 314 MPV (8.0-11.0) fL 10.5 Immature Gran % 0.3 Neutrophils % 58.8 Lymphocytes % 30.2 Monocytes % 5.6 Eosinophils % 4.8 Basophils % 0.3 Nucleated RBC % % 0 Absolute Neutrophils (1.2-6.7) 10^3/uL 6.09 Absolute Lymphocytes (1.2-3.4) 10^3/uL 3.13 Absolute Monocytes (0.1-0.8) 10^3/uL 0.58 Absolute Eosinophils (0.0-0.7) 10^3/uL 0.50 Absolute Basophils (0.0-0.2) 10^3/uL 0.03 Sodium (136-145) mmol/L 139 Potassium (3.5-5.1) mmol/L 3.5 Chloride (98-107) mmol/L 103 Carbon Dioxide (21.0-32.0) mmol/L 24.3 Anion Gap (3-11) mmol/L 11.7 H BUN (7-18) mg/dL 12 Creatinine (0.55-1.02) mg/dL 0.72 Estimated GFR/1.73 m2 (mL/min/1.73m2) >= 60.00 Glucose (74-106) mg/dL 107 H Calcium (8.5-10.1) mg/dL 8.4 L Total Bilirubin (0.2-1.0) mg/dL 0.1 L AST (15-37) U/L 11 L ALT (14-59) U/L 16 Alkaline Phosphatase (46-116) U/L 68 Total Protein (6.4-8.2) g/dL 7.9 Albumin (3.4-5.0) g/dL 3.3 L Beta HCG, Quant (1-3) mIU/mL 6 H Urine Color (Yellow) Red Urine Clarity (Clear) Sl cloudy Urine pH (5-8) 5.5 Ur Specific [place] (1.005-1.025) >= 1.030 H Urine Protein (Negative) mg/dL Trace H Urine Ketones (Negative) mg/dL Negative Urine Blood (Negative) Large H Urine Nitrite (Negative) Negative Urine Bilirubin (Negative) Negative Urine Urobilinogen (Up TO 0.2) EU/dL 0.2 Ur Leukocyte Esterase (Negative) Trace H Urine RBC (0-2) HPF >50 H Urine WBC Not Applicable Ur Epithelial Cells Not Applicable Urine Crystals Not Applicable Urine Bacteria Not Applicable Urine Mucus Not Applicable Ur Culture Indicated? Yes Urine Glucose (Negative) mg/dL Negative HPI General Mode of arrival: ambulatory . Date/Time Provider Initiated Documentation: 02/29/20 18:15 . Limitations to Documentation: no limitations . Information obtained by: patient . HPI Narrative: Patient is a 24-year-old female at approximately 5 weeks and 6 days presents for intermittent vaginal bleeding and cramping over the past 2 days. Patient took 2 at home test 2 days ago which were positive. She first developed spotting and pelvic pain 2 days ago for which she was seen in the ED. She had an ultrasound which was negative for ectopic but did not note a gestational yolk sac and her beta hCG was 14. She was advised to [facility] with [facility] for recheck of her beta-hCG. Patient returns today as she started again with vaginal spotting. She denies any cramping today. She denies any fever, nausea and vomiting or urinary symptoms. She states she was on 1 previous miscarriages several years ago occurring in the early stages of . Related Data Home Medications Medication Instructions Recorded Confirmed albuterol sulfate 1 - 2 puff IH QID PRN #8 gm 10/23/19 02/29/20 albuterol sulfate 5 mg IH Q6H PRN #30 each 11/16/19 02/29/20 PNV #[id number]-bweh-lyned acid-omega3 1 cap PO DAILY #60 cap 02/27/20 02/29/20 Previous Rx's Medication Instructions Recorded albuterol sulfate 1 - 2 puff IH QID PRN #8 gm 10/23/19 albuterol sulfate 5 mg IH Q6H PRN #30 each 11/16/19 PNV #[id number]-[id number] acid-omega3 1 cap PO DAILY #60 cap 02/27/20 Allergies Allergy/AdvReac Type Severity Reaction Status Date / Time iohexol [From Omnipaque] Allergy Intermediate Itching Unverified 02/29/20 16:59 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: 2 Review of Systems All systems reviewed & are unremarkable except as noted in HPI and below Constitutional Constitutional: Reports as per HPI, Denies chills and Denies fever(s) Eyes Eyes: Denies blurry vision ENT Ears, Nose, Mouth, and Throat: Denies dizziness, Denies sore throat and Denies throat swelling Cardiovascular Cardiovascular: Denies chest pain and Denies dyspnea Respiratory Respiratory: Denies cough and Denies dyspnea Gastrointestinal Gastrointestinal: Denies abdominal pain, Denies diarrhea and Denies vomiting Genitourinary Genitourinary: Denies hematuria, Denies dysuria and Reports other (vaginal bleeding) Musculoskeletal Musculoskeletal: Denies back pain and Denies numbness Integumentary/Breasts Skin/Breast: Denies lesions and Denies rash Neurologic Neurologic: Denies dizziness, Denies localized weakness and Denies numbness Allergic/Immunologic Allergic/Immunologic: Denies throat swelling [facility] Medical History (Updated 02/29/20 @ 19:24 by Erin Bradford DO) Asthma Cholelithiasis with acute on chronic cholecystitis History of diverticulitis History of sleep disorder Hx of schizophrenia Surgical History (Updated 03/01/20 @ 12:11 by Erin Bradford DO) No significant past surgical history Social History Smoking/Tobacco Use Status: Current every day Tobacco Type: cigarettes Smoking risk assessment performed?: Yes Alcohol Intake: never Drug use: Occasionally Substance use type: marijuana Details: marijuana: 03/21/19, small pipe Do you feel safe at home: Yes Do you feel safe in your relationship?: Yes Additional Social history: pt. states she is comfortable with Turkmen but is aware that slitting machine feeder service is available Exam Const General: cooperative, healthy appearing and no acute distress HENMT Head: normal to inspection Face and sinus: normal facial exam Eyes General: appearance normal, both eyes and all related structures Pupils: PERRL EOM: EOM intact bilaterally Neck Neck: normal visual inspection and No submandibular swelling Lymphatic: no lymphadenopathy noted Chest Chest: normal inspection of the chest and no tenderness Resp Effort & Inspection: normal respiratory effort and able to speak in complete sentences Auscultation: clear to auscultation bilaterally Cardio Rate: regular rate Rhythm: regular rhythm GI Inspection: normal to inspection and obesity Palpation: soft, not firm, not rigid and nontender Auscultation: normal bowel sounds External Female Exam: normal external appearance Speculum Exam - Cervix: cervical os open and other (minimal vaginal bleeding/ooz ing) Bimanual Exam- Vagina & Uterus: normal bimanual exam Bimanual Exam- Adnexa, other: normal adnexae OB/External & Speculum: cervical os open Back/Spine/Pelvis Thoracic/Lumbar Spine: thoracic and lumbar spine normal to inspection Skin General skin exam: no rashes or lesions noted Neuro General: patient alert, patient awake and patient oriented x3 Cognition: normal cognition Speech: speech normal Motor: muscle tone normal throughout Sensory Exam: no sensory deficits noted Extrem General: normal to inspection, full ROM, capillary refill normal, no calf tenderness bilaterally and no edema Psych Appearance: grossly normal Mental Status: mental status grossly normal Speech and Movement: speech and movement normal Affect: normal affect Course Vital Signs Vital signs: Vital Signs Temperature 98.8 F 02/29/20 16:57 Pulse 79 02/29/20 16:57 Respiratory Rate 20 02/29/20 16:57 Blood Pressure 129/86 02/29/20 16:57 Pulse Oximetry 99 02/29/20 16:57 Temperature 98.8 F 02/29/20 16:57 Temperature Source Skin 02/29/20 16:57 Pulse 79 02/29/20 16:57 Respiratory Rate 20 02/29/20 16:57 Blood Pressure 129/86 02/29/20 16:57 Blood Pressure Position Sitting 02/29/20 16:57 Pulse Oximetry 99 02/29/20 16:57 Oxygen Delivery Method Room Air 02/29/20 16:57 Oxygen Flow Rate 0 02/29/20 16:57 Pain Level 7 02/29/20 16:57
[2020-02-29 17:47] LABS: Abs Immature Grans 0.03 10^3/uL (0.0-0.06); Absolute Basophil Count 0.03 10^3/uL (0.0-0.2); Absolute Lymphocyte Count 3.13 10^3/uL (1.2-3.4); Absolute Monocyte Count 0.58 10^3/uL (0.1-0.8); Absolute Neutrophil Count 6.09 10^3/uL (1.2-6.7); Basophils % 0.3; Eosinophils % 4.8; HCT 39.8 % (36.0-46.0); HGB 12.9 g/dL (11.2-15.7); Immature Grans % 0.3; Lymphocytes % 30.2; MCH 24.7 pg (27.0-33.0); MCHC 32.4 % (32.0-36.0); MCV 76.1 fL (80-95); MPV 10.5 fL (8.0-11.0); Monocytes % 5.6; Neutrophils % 58.8; Nucleated RBC 0 %; Platelet Count 314 10^3/uL (130-400); RBC 5.23 10^6/uL (3.93-5.22); RDW 15.4 % (11.7-14.6); RDW-SD 42.1 fL; WBC 10.36 10^3/uL (4.4-10.8)
[2020-02-29] MEDS: Normal Saline 500 ML IV (17:55)
[2020-02-29] MEDS: Normal Saline Flush 10 ML SYR IVP (17:55)
[2020-02-29 17:57] LABS: Bilirubin Negative (Negative); Blood Large (Negative); Clarity Sl Cloudy (Clear); Glucose Negative (Negative); Ketones Negative (Negative); Leukocyte Esterase Trace (Negative); Nitrite Negative (Negative); Specific Gravity >= 1.030 (1.005-1.025); Urobilinogen 0.2 EU/dL (Up TO 0.2); pH 5.5 (5-8)
[2020-02-29 18:08] LABS: ALT 16 U/L (14-59); AST 11 U/L (15-37); Albumin 3.3 g/dL (3.4-5.0); Alkaline Phosphatase 68 U/L (46-116); Anion Gap 11.7 mmol/L (3-11); BUN 12 mg/dL (7-18); Bilirubin, Total 0.1 mg/dL (0.2-1.0); CO2 24.3 mmol/L (21.0-32.0); CREATININE 0.72 mg/dL (0.55-1.02); Calcium 8.4 mg/dL (8.5-10.1); Chloride 103 mmol/L (98-107); Glucose 107 mg/dL (74-106); HCG Quant, Pregnancy 6 mIU/mL (1-3); Potassium 3.5 mmol/L (3.5-5.1); Sodium 139 mmol/L (136-145); Total Protein 7.9 g/dL (6.4-8.2)
[2020-02-29 18:20] LABS: C & S Indicated? Yes; RBC >50 HPF (0-2)
[2020-02-29 19:35] VITALS: BP 141/112; PULSE 79; RESP 16; O2SAT 100
== END 2020-02-29 19:52 | disposition home or self-care (01) ==
PROVIDERS: Emergency Provider Physician Assistant; PCP Nurse Practitioner Family
DX: O03.4 Incomplete spontaneous abortion without complication (principal); O99.330 Smoking (tobacco) complicating pregnancy, unspecified trimester; F17.210 Nicotine dependence, cigarettes, uncomplicated; O99.321 Drug use complicating pregnancy, first trimester; F12.10 Cannabis abuse, uncomplicated
CPT/HCPCS: 36415; 80053; 81025; 96360; 96361; 99284; 81003; 81015; 84702; 85025; 87086

== ENCOUNTER 2020-03-05 15:00 | Outpatient (CLI) | payer MEDICAID, SELFPAY ==
[2020-03-05 13:03] LABS: HCG Quant, Pregnancy 3 mIU/mL (1-3)
== END 2020-03-05 15:20 ==
PROVIDERS: PCP Nurse Practitioner Family; Visit Provider Obstetrics & Gynecology
DX: O03.9 Complete or unspecified spontaneous abortion without complication (principal)
CPT/HCPCS: 36415; 84702

== ENCOUNTER 2020-03-23 12:14 | Emergency (ER) | payer MEDICAID, SELFPAY ==
--- NOTE | 2020-03-23 12:15 | RT.EKG_ITS ---
APPROVED REPORT Exam: Resting ECG Patient Location: E HR:87 bpm ECG Measurements Heart Rate 87 AXIS NM 128 P 44 QRSd 83 QRS 42 QT 346 T 22 QTc 416 Conclusion Sinus rhythm...normal P axis, V-rate 60- 99 I have reviewed and interpreted ECG and agree with software generated interpretation.
[2020-03-23 12:16] VITALS: BP 126/97; PULSE 89; RESP 20; TEMP 36.4; O2SAT 100
[2020-03-23] MEDS: Albuterol HFA 8 GM 60 PUFF INH IH (12:45)
--- NOTE | 2020-03-23 12:53 | ED.GENADUL_ITS ---
Discharge Plan Disposition Patient Disposition: HOME Condition: Stable Discharge Details Clinical Impression: Asthma exacerbation Primary Care Provider: Chandni Finn ED Provider: Ahmet Ventura Home Meds and New Rx's Prescriptions: Continued albuterol sulfate 90 mcg/actuation HFA aerosol inhaler 1 - 2 puff IH QID PRN (Reason: shortness of breath or wheezing) Qty: 8 RF: 0 albuterol sulfate 2.5 mg/0.5 mL solution for nebulization 5 mg IH Q6H PRN (Reason: bronchospasm) Qty: 30 RF: 0 PNV #[id number] acid-omega3 30 mg iron-10 mg iron-1 mg capsule 1 cap PO DAILY Qty: 60 RF: 2 Discharge Instructions Instructions: Asthma (ED) Additional Instructions: I do recommend that you quit smoking. Albuterol inhaler with spacer as directed. Fixn-gxh-uwobggd medications for symptomatic control. Please watch for new or worsening symptoms and return to the ER for any concerns. I do recommend reaching out your primary care provider later today for prompt outpatient reevaluation. I also spoke with your MOTOR DRIVER team, Dr. Rain. She is aware of your ER visit here and your negative urine test. She has no additional recommendations while you are here in the ER. Given you have respiratory symptoms, you will not be seen in our office today and she will be happy to follow you as an outpatient once your respiratory symptoms have resolved. I do recommend contacting their office in a week or so to set up your outpatient appointment. As we discussed, Covid test is pending, be sure to quarantine until you get a negative test Referrals: Makeda Rain DO [OSTEOPATHIC DOCTOR] - Medical Decision Making 25-year-old asthmatic, current smoker, presents with EMS for evaluation of an ongoing cough, wheezing, worsening over the past couple of weeks. She is out of her albuterol inhaler. She does report chest wall discomfort after a coughing fit as well as occasionally vomiting with excessive coughing. She has not tried any medication [id number] for symptomatic control clinically she appears well, nontoxic. She is afebrile, O2 sats 100% on room air. She does have an occasional wheeze. She does not have the ability to chart picker any prescriptions. I will obtain a chest x-ray to rule out pneumonia, Covid swab, and give her an albuterol inhaler with spacer, 2 puffs now. Please note that an EKG was obtained per protocol as the patient did not report chest discomfort. This occurred prior to my evaluation. During my evaluation, the chest discomfort appears to be secondary to coughing and chest wall in nature. I do not believe that she requires a full cardiac work-up here in the ER. Given her recent miscarriage, will obtain a urine test now. Currently she has no abdominal pain, nausea, vaginal bleeding or discharge, denies pelvic pain. Chest x-ray is negative, initially read by me and then confirmed by radiology. Negative test Upon reevaluation patient reports significant improvement with her albuterol inhaler. From a respiratory standpoint she appears well, nontoxic, no respiratory distress. She likely has a asthma exacerbation that could be worsened because of a viral illness. Covid is pending. I see no clear indication for steroid therapy or antibiotics. Given her negative test, appointment with MOTOR DRIVER later today at 140, and her respiratory symptoms, I will contact MOTOR DRIVER myself to discuss options. I was able to speak with Dr. Rain who was scheduled to see her later today. Given the patient has no abdominal pain, vaginal bleeding or discharge, in the setting of a negative test, she does not believe the patient needs to be seen as an outpatient today given her respiratory symptoms. She does not request additional laboratory values performed here in the ER. She will be happy to follow-up with the patient as an outpatient in the next few weeks once the patient is asymptomatic from a respiratory standpoint. She will contact her office to make an appointment. This discussion was relayed to the patient who i s agreeable with this plan. No additional questions or concerns. Medical Records Medical records reviewed: Yes I reviewed the patient's medical records. Imaging Data Radiologic Study: Attestation: I personally reviewed and interpreted this imaging study as follows: Imaging: X-Ray Radiologist's impression: Negative chest Lab Data Lab results reviewed: Yes I reviewed the patient's lab results. Lab results narrative: Negative [id number] urine ECG Data Attestation: I personally reviewed and interpreted this ECG (s) as follows: Interpretation: Please see official report by Dr. Bradford. Sinus rhythm, ventricular rate of 87. No STEMI. HPI General Mode of arrival: EMS . Date/Time Provider Initiated Documentation: 03/23/20 12:20 . Limitations to Documentation: no limitations . Information obtained by: patient . HPI Narrative: This is a 25-year-old female with past medical history that includes asthma, morbid obesity, recurrent cigarette and marijuana smoker, presenting to the ER via EMS for evaluation. She reports that she does not have her inhaler because she cannot afford to fill the prescription. She reports that she has had chest congestion, wheezing, dry cough for the past couple of weeks that has worsened in nature. Now when she has coughing fits she reports chest wall discomfort, back discomfort, and if she coughs severely she even vomits. She denies recent travel or sick contacts. She also reports that she was seen here in the ER earlier this month, subsequently evaluated by MOTOR DRIVER, and was told that she was having a miscarriage. She has not performed the outpatient test that was directed. She is scheduled to be seen by MOTOR DRIVER today at 1:40 PM. She denies any abdominal pain, nausea, vaginal bleeding or discharge, dysuria, hematuria, pelvic pain. Related Data Home Medications Medication Instructions Recorded Confirmed albuterol sulfate 1 - 2 puff IH QID PRN #8 gm 10/23/19 03/23/20 albuterol sulfate 5 mg IH Q6H PRN #30 each 11/16/19 03/23/20 PNV #[id number] acid-omega3 1 cap PO DAILY #60 cap 02/27/20 03/23/20 Previous Rx's Medication Instructions Recorded albuterol sulfate 1 - 2 puff IH QID PRN #8 gm 10/23/19 albuterol sulfate 5 mg IH Q6H PRN #30 each 11/16/19 PNV #[id number] acid-omega3 1 cap PO DAILY #60 cap 02/27/20 Allergies Allergy/AdvReac Type Severity Reaction Status Date / Time iohexol [From Omnipaque] Allergy Intermediate Itching Unverified 02/29/20 16:59 General Stated Complaint: GenMedical MARIELLA: 3 Review of Systems Constitutional Constitutional: Denies fever(s) and Denies headache(s) Eyes Eyes: Denies eye discharge ENT Ears, Nose, Mouth, and Throat: Denies otalgia, Denies headache(s), Denies neck pain and Denies sore throat Cardiovascular Cardiovascular: Reports chest pain (With coughing) and Denies dyspnea Respiratory Respiratory: Reports cough, Denies dyspnea and Reports wheezing Gastrointestinal Gastrointestinal: Denies abdominal pain, Denies nausea and Reports vomiting Genitourinary Genitourinary: Denies abnormal vaginal bleeding, Denies dysuria, Denies pelvic pain and Denies vaginal discharge Musculoskeletal Musculoskeletal: Reports back pain (With coughing) and Denies neck pain Integumentary/Breasts Skin/Breast: Denies rash Neurologic Neurologic: Denies headache(s) Allergic/Immunologic Allergic/Immunologic: Reports wheezing [facility] Medical History Asthma Cholelithiasis with acute on chronic cholecystitis History of diverticulitis History of sleep disorder Hx of schizophrenia Surgical History No significant past surgical history Social History Smoking/Tobacco Use Status: Current every day Tobacco Type: cigarettes Smoking risk assessment performed?: Yes Alcohol Intake: never Drug use: Occasionally Substance use type: marijuana Details: marijuana: 03/21/19, small pipe Do you feel safe at home: Yes Do you feel safe in your relationship?: Yes Additional Social history: pt. 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 Exam Const General: cooperative, healthy appearing, comfortable and no acute distress Orientation: alert and awake [facility] Head: normal to inspection, normocephalic and atraumatic General nose exam: external nose normal Face and sinus: normal facial exam Mouth: moist mucous membranes Throat: posterior oropharynx normal Eyes General: appearance normal, both eyes and all related structures Alignment and Position: alignment normal Periorbital: periorbital findings normal Eyelids: eyelids normal Conjunctivae: conjunctivae normal Sclera: sclerae normal Cornea: corneas normal EOM: EOM intact bilaterally Neck Neck: normal visual inspection, full ROM, no meningeal signs, trachea midline and supple Resp Effort & Inspection: normal respiratory effort, able to speak in complete sentences and cough Quality of cough: dry (Mild) Auscultation: wheezes inspiratory wheezes and scattered wheezes (Minimal) Cardio Rate: regular rate Rhythm: regular rhythm GI Inspection: obesity Palpation: soft and nontender Back/Spine/Pelvis Back: No back tenderness Skin General skin exam: no rashes or lesions noted Neuro General: patient alert, patient awake, moves all extremities and no focal motor deficits Sensory Exam: no sensory deficits noted Extrem General: normal to inspection, full ROM, capillary refill normal, no pedal edema and no calf tenderness Psych Appearance: grossly normal Mental Status: mental status grossly normal Course Vital Signs Vital signs: Vital Signs Temperature 36.4 C L 03/23/20 12:16 Pulse 89 03/23/20 12:16 Respiratory Rate 20 03/23/20 12:16 Blood Pressure 126/97 H 03/23/20 12:16 Pulse Oximetry 100 03/23/20 12:16 Temperature 36.4 C L 03/23/20 12:16 Temperature Source Skin 03/23/20 12:16 Pulse 89 03/23/20 12:16 Respiratory Rate 20 03/23/20 12:16 Respiratory Effort Non-Labored 03/23/20 12:26 Blood Pressure 126/97 H 03/23/20 12:16 Blood Pressure Position Sitting 03/23/20 12:16 Pulse Oximetry 100 03/23/20 12:16 Oxygen Delivery Method Room Air 03/23/20 12:16 Oxygen Flow Rate 0 03/23/20 12:16 Pain Level 8 03/23/20 12:16
[2020-03-23 13:07] VITALS: RESP 16
--- NOTE | 2020-03-23 13:17 | DI.RAD_ITS ---
EXAM: XR PORTABLE CHEST AP CLINICAL HISTORY: cough/wheeze. TECHNIQUE: 2D digital imaging was performed. COMPARISON: CR,XR XR PORTABLE CHEST AP from 11/16/2019 FINDINGS: LUNGS: Clear. No pleural abnormality seen. HEART: Normal. MEDIASTINUM: Normal. OTHER FINDINGS: None. IMPRESSION: No acute pulmonary findings. DATA REPOSITORY: RADIATION DOSE DELIVERED: Total DLP
[2020-03-23 14:20] VITALS: BP 124/89; PULSE 90; RESP 16; TEMP 36.4; O2SAT 100
[2020-03-25 17:42] LABS: SARS-CoV-2 RNA Undetected (Undetected); SARS-CoV-2 Specimen Source Nasopharynx
== END 2020-03-23 14:21 | disposition home or self-care (01) ==
LOC: ER 14:00
PROVIDERS: Emergency Provider Physician Assistant; PCP Nurse Practitioner Family
DX: R07.81 Pleurodynia (principal); J45.901 Unspecified asthma with (acute) exacerbation; F17.210 Nicotine dependence, cigarettes, uncomplicated; Z11.59 Encounter for screening for other viral diseases
CPT/HCPCS: 81025; 93005; 99284; U0003; 71045; 93010; 99285

== ENCOUNTER 2020-03-27 06:01 | Emergency (ER) | payer MEDICAID, SELFPAY ==
[2020-03-27 06:01] VITALS: BP 140/81; PULSE 81; RESP 14; O2SAT 99
--- NOTE | 2020-03-27 06:11 | W.ED.GENAD ---
Discharge Plan Disposition Patient Disposition: HOME Condition: Good Discharge Details Clinical Impression: Nausea and vomiting, Epigastric abdominal pain Primary Care Provider: Chandni Finn ED Provider: Zac Cancino [place] Meds and New Rx's Prescriptions: New promethazine 25 mg tablet 25 mg PO Q6H PRN (Reason: nausea and vomiting) Qty: 10 RF: 0 Continued albuterol sulfate 90 mcg/actuation HFA aerosol inhaler 1 - 2 puff IH QID PRN (Reason: shortness of breath or wheezing) Qty: 8 RF: 0 albuterol sulfate 2.5 mg/0.5 mL solution for nebulization 5 mg IH Q6H PRN (Reason: bronchospasm) Qty: 30 RF: 0 PNV #[id number] acid-omega3 30 mg iron-10 mg iron-1 mg capsule 1 cap PO DAILY Qty: 60 RF: 2 Discharge Instructions Instructions: Acute Nausea and Vomiting (ED), Epigastric Pain (ED) Additional Instructions: Labs look fine today. Clear liquid/bland diet this weekend. Follow up with PCP next week if not feeling better. Return to ED for new/worse pain, persistent vomiting, spiking fevers. Referrals: Chandni Finn [Primary Care Provider] - Medical Decision Making Patient presenting with epigastric abdominal pain with associated nausea and vomiting. Does have history of cholelithiasis. Review of medical record shows that last year during attempt to remove gallbladder, patient had acute bronchospastic response after intubation. Surgery was aborted. Patient today has no abdominal tenderness. Specifically no right upper quadrant tenderness and no Valdez sign. I am more suspicious for acid related disease. She is not having diarrhea or fever, likely to be gastroenteritis. Will place IV and give Phenergan and Pepcid. Will check basic labs. No imaging at this point. Patient's labs are unremarkable. Pain is resolved after IV Pepcid and Phenergan. Vital signs are normal. Patient will be discharged home with prescription for Phenergan. Clear liquid/bland diet today. Follow-up primary care next week if still having issues. Return for worsening or new abdominal pain, persistent vomiting, spiking fevers. Medical Records Medical records reviewed: Yes I reviewed the patient's medical records. Lab Data Lab results reviewed: Yes I reviewed the patient's lab results. HPI General Mode of arrival: EMS. Date/Time Provider Initiated Documentation: 03/27/20 06:11. Limitations to Documentation: no limitations. Information obtained by: patient, RN notes reviewed and old records reviewed. HPI Narrative: Patient presents to the ED with complaint of epigastric abdominal pain with associated nausea and vomiting. Onset was last evening. She estimates vomiting 5 or 6 times. At this point it is just bile. Pain is in the epigastric region radiating to the back is somewhat of pain to the lower chest. She denies any lower abdominal pain, urinary symptoms, vaginal bleeding or discharge, diarrhea. She denies any chest pain, shortness of breath, cough. She was seen here on the first asthma exacerbation. Negative Covid testing from that time. Negative chest x-ray and test as well. She did try some Tylenol at home. Patient does have history of gallstones. Related Data Home Medications Medication Instructions Recorded Confirmed albuterol sulfate 1 - 2 puff IH QID PRN #8 gm 10/23/19 03/23/20 albuterol sulfate 5 mg IH Q6H PRN #30 each 11/16/19 03/27/20 PNV #[id number] acid-omega3 1 cap PO DAILY #60 cap 02/27/20 03/23/20 promethazine 25 mg PO Q6H PRN #10 tab 03/27/20 Previous Rx's Medication Instructions Recorded albuterol sulfate 1 - 2 puff IH QID PRN #8 gm 10/23/19 albuterol sulfate 5 mg IH Q6H PRN #30 each 11/16/19 PNV #[id number] acid-omega3 1 cap PO DAILY #60 cap 02/27/20 promethazine 25 mg PO Q6H PRN #10 tab 03/27/20 Allergies Allergy/AdvReac Type Severity Reaction Status Date / Time iohexol [From Omnipaque] Allergy Intermediate Itching Unverified 03/27/20 06:06 General Stated Complaint: Abd Prob MARIELLA: 3 Review of Systems Narrative: As documented in HPI otherwise negative as below. Const: no fever, chills, weakness Resp: no cough, SOB, pleuritic pain CV: no CP, diaphoresis, edema, syncope GI: no diarrhea Neuro: no headache, numbness, focal weakness, confusion PFSH Medical History Asthma Cholelithiasis with acute on chronic cholecystitis History of diverticulitis History of sleep disorder Hx of schizophrenia Surgical History No significant past surgical history Social History Smoking/Tobacco Use Status: Current every day Tobacco Type: cigarettes Smoking risk assessment performed?: Yes Alcohol Intake: never Drug use: Occasionally Substance use type: marijuana Details: marijuana: 03/21/19, small pipe Do you feel safe at home: Yes Do you feel safe in your relationship?: Yes Additional Social history: pt. 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 HEENT: NC/AT. Normal facial exam. Eyes: Normal conjunctiva and sclera. Neck: Supple. Trachea midline. Lungs: Normal respiratory effort. Lungs are clear. Cor: RRR without murmur/gallop. Good radial pulses. GI: Soft. NT/ND. No guarding or rebound. There is no right upper quadrant tenderness. There is no Valdez sign. There is no epigastric tenderness. Pelvic: Deferred, no pelvic or lower abdominal complaints. Neuro: A+O x 3. Normal speech, mentation, gait. Cranial nerves II - XII grossly intact. No gross motor or sensory deficit. Ext: No C/C/E. Skin: Warm and dry without rash. Course Vital Signs Vital signs: Vital Signs Pulse 81 03/27/20 06:01 Respiratory Rate 14 03/27/20 06:01 Blood Pressure 140/81 03/27/20 06:01 Pulse Oximetry 99 03/27/20 06:01 Pulse 81 03/27/20 06:01 Respiratory Rate 14 03/27/20 06:01 Respiratory Effort Non-Labored 03/27/20 06:06 Blood Pressure 140/81 03/27/20 06:01 Blood Pressure Position Sitting 03/27/20 06:01 Pulse Oximetry 99 03/27/20 06:01 Oxygen Delivery Method Room Air 03/27/20 06:01 Oxygen Flow Rate 0 03/27/20 06:01 Pain Level 10 03/27/20 06:07
[2020-03-27] MEDS: FAMOTIDINE 20 MG/50 ML BAG 100 MG IVPB (06:40)
[2020-03-27] MEDS: Lactated Ringers 1,000 ML 1000 ML IV (06:41)
[2020-03-27 06:45] LABS: Abs Immature Grans 0.02 10^3/uL (0.0-0.06); Absolute Basophil Count 0.03 10^3/uL (0.0-0.2); Absolute Eosinophil Count 0.34 10^3/uL (0.0-0.7); Absolute Lymphocyte Count 1.49 10^3/uL (1.2-3.4); Absolute Monocyte Count 0.37 10^3/uL (0.1-0.8); Absolute Neutrophil Count 7.62 10^3/uL (1.2-6.7); Basophils % 0.3; Eosinophils % 3.4; HGB 11.9 g/dL (11.2-15.7); Immature Grans % 0.2; Lymphocytes % 15.1; MCH 24.7 pg (27.0-33.0); MCHC 32.2 % (32.0-36.0); MCV 76.8 fL (80-95); MPV 10.3 fL (8.0-11.0); Monocytes % 3.7; Neutrophils % 77.3; Nucleated RBC 0 %; Platelet Count 322 10^3/uL (130-400); RBC 4.82 10^6/uL (3.93-5.22); RDW 15.1 % (11.7-14.6); RDW-SD 41.7 fL; WBC 9.87 10^3/uL (4.4-10.8)
[2020-03-27 07:01] LABS: ALT 15 U/L (14-59); AST 17 U/L (15-37); Albumin 3.2 g/dL (3.4-5.0); Alkaline Phosphatase 68 U/L (46-116); BUN 9 mg/dL (7-18); Bilirubin, Total 0.3 mg/dL (0.2-1.0); CREATININE 0.83 mg/dL (0.55-1.02); Calcium 8.6 mg/dL (8.5-10.1); Chloride 103 mmol/L (98-107); Glucose 117 mg/dL (74-106); Lipase 102 U/L (73-393); Potassium 4.1 mmol/L (3.5-5.1); Sodium 136 mmol/L (136-145); Total Protein 7.5 g/dL (6.4-8.2)
[2020-03-27 07:25] VITALS: BP 135/93; PULSE 80; RESP 18; O2SAT 99
== END 2020-03-27 08:59 | disposition home or self-care (01) ==
LOC: ER 07:54
PROVIDERS: Emergency Provider Emergency Medicine; PCP Nurse Practitioner Family
DX: R10.13 Epigastric pain (principal); R11.2 Nausea with vomiting, unspecified
CPT/HCPCS: 36415; 80053; 83690; 96365; 99284; 85025

== ENCOUNTER 2020-05-04 09:04 | Emergency (ER) | payer MEDICAID, SELFPAY ==
[2020-05-04] VITALS (14 sets, daily range): BP systolic 108–123; BP diastolic 66–72; PULSE 74–104; RESP 13–29; TEMP 36.4; O2SAT 97–100
--- NOTE | 2020-05-04 09:08 | NUR.NOTE ---
Referral to Care Management for multiple ER visits.Nursing Note:
[2020-05-04] MEDS: Albuterol/Ipratropium 3 ML UPD VIAL UPD ×2 (09:12→09:21)
--- NOTE | 2020-05-04 09:54 | W.ED.GENAD ---
Discharge Plan Disposition Patient Disposition: HOME Condition: Stable Discharge Details Clinical Impression: Acute asthma exacerbation Primary Care Provider: Chandni Finn ED Provider: Bruno Rea Home Meds and New Rx's Prescriptions: New prednisone 20 mg tablet 20 mg PO DAILY Qty: 8 RF: 0 Continued albuterol sulfate 90 mcg/actuation HFA aerosol inhaler 1 - 2 puff IH QID PRN (Reason: shortness of breath or wheezing) Qty: 8 RF: 0 albuterol sulfate 2.5 mg/0.5 mL solution for nebulization 5 mg IH Q6H PRN (Reason: bronchospasm) Qty: 30 RF: 0 Discharge Instructions Instructions: Asthma (ED) Additional Instructions: Avoid environments that exacerbate your asthma including cold environment. Take your medication as prescribed and be sure to talk with your primary care physician about medication refills before you run out. Please contact your primary care physician to arrange follow-up. Call today. Return to the ER for any worsening or new concerning symptoms. Stand Alone Forms: Work Release Referrals: Chandni Finn [Primary Care Provider] - Medical Decision Making 25-year-old female with history of chronic asthma, cold-induced, here with cough and shortness of breath and wheeze consistent with prior asthma exacerbation. Patient with medication noncompliance as she ran out of her albuterol. Patient was given DuoNeb treatment x2 and reassessed and had complete resolution of her wheeze and cough. She was given prednisone 60 mg and continued on prednisone burst. I did provide her albuterol inhaler. She has a spacer at home. I also refilled her albuterol neb prescriptions. She was encouraged to call her doctor today to arrange timely outpatient follow-up. She was also advised to avoid exacerbating conditions including cold environments. Usual customary discharge instructions were reviewed with the patient. HPI General Mode of arrival: ambulatory. Date/Time Provider Initiated Documentation: 05/04/20 09:06. Limitations to Documentation: no limitations. Information obtained by: patient. HPI Narrative: 25-year-old female with history of asthma presents with chief complaint of cough and associated shortness of breath. Patient notes symptoms have been persistent over the past 4 to 5 days and now worse without her medication. Symptoms moderate on arrival. She notes she ran out of her albuterol nebulizer solution. She states symptoms feel exactly the same as prior asthma exacerbations. She is requesting albuterol. She denies associated fever. No known Covid exposures. Cough is nonproductive. Related Data Home Medications Medication Instructions Recorded Confirmed albuterol sulfate 1 - 2 puff IH QID PRN #8 gm 05/04/20 albuterol sulfate 5 mg IH Q6H PRN #30 each 05/04/20 prednisone 20 mg PO DAILY #8 tab 05/04/20 Previous Rx's Medication Instructions Recorded albuterol sulfate 1 - 2 puff IH QID PRN #8 gm 05/04/20 albuterol sulfate 5 mg IH Q6H PRN #30 each 05/04/20 prednisone 20 mg PO DAILY #8 tab 05/04/20 Allergies Allergy/AdvReac Type Severity Reaction Status Date / Time iohexol [From Omnipaque] Allergy Intermediate Itching Unverified 05/04/20 09:12 General Stated Complaint: RespSymp MARIELLA: 3 Review of Systems All systems reviewed & are unremarkable except as noted in HPI and below Constitutional Constitutional: Denies fever(s) Cardiovascular Cardiovascular: Reports dyspnea Respiratory Respiratory: Reports cough, Reports dyspnea and Denies wheezing Allergic/Immunologic Allergic/Immunologic: Denies wheezing [facility] Medical History Asthma Cholelithiasis with acute on chronic cholecystitis History of diverticulitis History of sleep disorder Hx of schizophrenia Surgical History No significant past surgical history Social History Smoking/Tobacco Use Status: Current every day Tobacco Type: cigarettes Smoking risk assessment performed?: Yes Alcohol Intake: never Drug use: Occasionally Substance use type: marijuana Details: marijuana: 03/21/19, small pipe Do you feel safe at home: Yes Do you feel safe in your relationship?: Yes Additional Social history: pt. 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 Exam Const General: cooperative and no acute distress HENMT Mouth: moist mucous membranes Eyes Conjunctivae: normal conjunctivae Sclera: normal sclerae Neck Neck: trachea midline and supple Resp Effort & Inspection: tachypneic and no use of accessory muscles Auscultation: no rales, no rhonchi and wheezes expiratory wheezes Cardio Rate: regular rate and not tachycardic Rhythm: regular rhythm GI Palpation: soft, not firm, no guarding, no masses, not rigid and nontender Skin General skin exam: no rashes or lesions noted Neuro General: patient alert, patient awake, patient oriented x3 and tone normal Extrem General: no calf tenderness and no edema Psych Appearance: grossly normal Mental Status: mental status grossly normal Course Vital Signs Vital signs: Vital Signs Temperature 36.4 C L 05/04/20 09:07 Pulse 85 05/04/20 09:07 Pulse Oximetry 97 05/04/20 09:07 Temperature 36.4 C L 05/04/20 09:07 Temperature Source Temporal Artery Scan 05/04/20 09:07 Pulse 85 05/04/20 09:12 Respiratory Rate 18 05/04/20 09:12 Respiratory Effort Labored 05/04/20 09:35 Respiratory Depth Deep 05/04/20 09:35 Blood Pressure Position Sitting 05/04/20 09:07 Pulse Oximetry 97 05/04/20 09:12 Oxygen Delivery Method Room Air 05/04/20 09:12 Oxygen Flow Rate 0 05/04/20 09:12 Pain Level 0 05/04/20 09:07
[2020-05-04] MEDS: predniSONE 20 MG TAB 60 MG PO (10:09)
[2020-05-04] MEDS: Albuterol HFA 8 GM 60 PUFF INH IH (10:09)
--- NOTE | 2020-05-06 14:41 | PDOC.ERCMPRO ---
- If Service Date Differs Date of service: 05/06/20 Time of Service: 14:41 Care Management Progress Note CM speaks with Denisha, the chronic care director at Lawrence' PCP's office. Denisha reports Lawrence has a follow up appointment scheduled with her PCP on May 24, 2020. She also states Lawrence called the [facility] for refills of her inhalers and prescriptions were sent to the pharmacy on 05/04/2020. Denisha will meet with Lawrence at the May 24, 2020, appointment to discuss and address barriers to her outreaching to her PCP's office in an attempt to minimize avoidable ED visits in the future. MICHELLE will continue to follow.
== END 2020-05-04 10:22 | disposition home or self-care (01) ==
LOC: ER 10:09
PROVIDERS: Emergency Provider Student in an Organized Health Care Education/Training Program; PCP Nurse Practitioner Family
DX: J45.901 Unspecified asthma with (acute) exacerbation (principal); T48.6X6A Underdosing of antiasthmatics, initial encounter; Z91.138 Patient's unintentional underdosing of medication regimen for other reason; F17.210 Nicotine dependence, cigarettes, uncomplicated
CPT/HCPCS: 94640; 99284; 99283; J7512; J7620

== ENCOUNTER 2020-05-27 09:44 | Emergency (ER) | payer MEDICAID, SELFPAY ==
[2020-05-27 09:44] VITALS: BP 146/76; PULSE 80; RESP 18; TEMP 36.2; O2SAT 98
--- NOTE | 2020-05-27 09:49 | W.ED.GENAD ---
Discharge Plan Disposition Patient Disposition: HOME Condition: Stable Discharge Details Clinical Impression: Lesion of lip Primary Care Provider: Chandni Finn ED Provider: Ahmet Ventura Home Meds and New Rx's Prescriptions: New acyclovir 400 mg tablet 400 mg PO TID 7 Days Qty: 21 RF: 0 mupirocin 2 % ointment 1 applic topical TID 14 Days Qty: 15 RF: 0 Continued albuterol sulfate 90 mcg/actuation HFA aerosol inhaler 1 - 2 puff IH QID PRN (Reason: shortness of breath or wheezing) Qty: 8 RF: 0 albuterol sulfate 2.5 mg/0.5 mL solution for nebulization 5 mg IH Q6H PRN (Reason: bronchospasm) Qty: 30 RF: 0 Discharge Instructions Instructions: Impetigo (ED), Oral Herpes Simplex Virus Infections (ED) Additional Instructions: At this time your examination is certainly suspicious for a oral herpes simplex viral outbreak. From what you describe you have had this in the past. The swab is pending but we will treat you with acyclovir, please take as directed. Given you have popped some of the lesions, I am concerned about a secondary infection, so please use the Mupirocin ointment as directed as well. [id number] Tylenol and/or Motrin as directed for discomfort. Please watch for new or worsening symptoms and return to the ER for any concerns. I do recommend reaching out to your primary care provider in the next 24 hours for outpatient reevaluation. Medical Decision Making 25-year-old female presents to the ER today via EMS for a lip lesion has been present for 2-3 days. She reports that she had a similar lesion maybe 2 years ago. Mild left ear pain. Clinically she appears well, nontoxic. She is afebrile, speaking full sentences, airway is patent. No evidence of trismus, neck pain, lymphadenopathy, tachycardia, fever, etc. Clinically I am suspicious of an HSV infection however given she has been popping and picking at the lesion I am questioning whether there may be a secondary infection as well. Given the suspicion for HSV, will obtain HSV 1 and 2 swab. Will treat with antiviral also placed on the Bactroban for potential impetigo. Patient is comfortable with plan and has no additional questions or concerns. She speaks in full sentences, manages her own secretions, appears well, nontoxic upon discharge. Medical Records Medical records reviewed: Yes I reviewed the patient's medical records. Lab Data Lab results narrative: HSV pending HPI General Mode of arrival: EMS. Date/Time Provider Initiated Documentation: 05/27/20 09:49. Limitations to Documentation: no limitations. Information obtained by: patient and EMS. HPI Narrative: This is a 25-year-old female, past medical history that includes gastroenteritis, chronic back pain, morbid obesity, asthma, presenting to the ER for a lesion to her lip for the past 3 days. She reports that she noticed the lesion approximately 3 days ago, was unsure if it was a pimple, attempted to pop it causing the lesion to become more painful and swollen. She states that she has occasionally had a lesion like this in the past, the last time was probably 2 years ago. She reports minimal left ear pain but no drainage or difficulty hearing. She denies any fever, visual changes, neck pain, sore throat, cough, shortness of breath, abdominal pain, nausea, vomiting, skin rash elsewhere on her body. She specifically denies ever having any of these lesions on her vagina. The lesion is on her lip but not within her mouth. Related Data Home Medications Medication Instructions Recorded Confirmed albuterol sulfate 1 - 2 puff IH QID PRN #8 gm 05/04/20 05/27/20 albuterol sulfate 5 mg IH Q6H PRN #30 each 05/04/20 05/27/20 acyclovir 400 mg PO TID 7 Days #21 tab 05/27/20 mupirocin 1 applic TOPICAL TID 14 Days #15 g 05/27/20 Previous Rx's Medication Instructions Recorded albuterol sulfate 1 - 2 puff IH QID PRN #8 gm 05/04/20 albuterol sulfate 5 mg IH Q6H PRN #30 each 05/04/20 acyclovir 400 mg PO TID 7 Days #21 tab 05/27/20 mupirocin 1 applic TOPICAL TID 14 Days #15 g 05/27/20 Allergies Allergy/AdvReac Type Severity Reaction Status Date / Time iohexol [From Omnipaque] Allergy Intermediate Itching Unverified 05/27/20 09:49 General Stated Complaint: Cellulitis MARIELLA: 3 Review of Systems Constitutional Constitutional: Denies fever(s) and Denies headache(s) Eyes Eyes: Denies eye discharge ENT Ears, Nose, Mouth, and Throat: Reports otalgia, Denies headache(s), Reports lip swelling (And pain), Denies nasal discharge, Denies neck mass, Denies neck pain, Denies sore throat, Denies throat swelling and Denies tongue swelling Cardiovascular Cardiovascular: Denies chest pain and Denies dyspnea Respiratory Respiratory: Denies cough and Denies dyspnea Gastrointestinal Gastrointestinal: Denies abdominal pain, Denies nausea and Denies vomiting Genitourinary Genitourinary: Denies genital lesions Musculoskeletal Musculoskeletal: Denies neck pain Neurologic Neurologic: Denies headache(s) Allergic/Immunologic Allergic/Immunologic: Denies throat swelling and Denies tongue swelling [facility] Medical History Asthma Cholelithiasis with acute on chronic cholecystitis History of diverticulitis History of sleep disorder Hx of schizophrenia Surgical History No significant past surgical history Social History Smoking/Tobacco Use Status: Current every day Tobacco Type: cigarettes Smoking risk assessment performed?: Yes Alcohol Intake: never Drug use: Occasionally Substance use type: marijuana Details: marijuana: 03/21/19, small pipe Do you feel safe at home: Yes Do you feel safe in your relationship?: Yes Additional Social history: pt. states she is comfortable with Chinese but is aware that engineer station mainline service is available Exam Const General: cooperative, healthy appearing, comfortable and no acute distress Orientation: alert, awake and oriented x3 HENMT Head: normal to inspection, normocephalic and atraumatic Ears: external ears normal, TM's normal bilaterally and EAC's normal General nose exam: external nose normal and nares normal Face and sinus: normal facial exam Mouth: moist mucous membranes and lip abnormal Mouth/tongue images: 1. There is a approximately 2 x 2 centimeter lesion that does cross the vermilion border. It is slightly erythematous with what appears to be a small intact vesicle. Patient has been popping the vesicle so it may look altered from its original state. Along the superior medial border I do question a small amount of crusting, consistent with impetigo. Diffuse mild discomfort. Teeth and gingiva: dentition normal Throat: posterior oropharynx normal Eyes General: appearance normal, both eyes and all related structures Eyelids: eyelids normal Conjunctivae: conjunctivae normal Sclera: sclerae normal Neck Neck: normal visual inspection, full ROM, no lymphadenopathy, no meningeal signs, trachea midline, supple and nontender Resp Effort & Inspection: normal respiratory effort and able to speak in complete sentences Auscultation: clear to auscultation bilaterally Cardio Rate: regular rate Rhythm: regular rhythm Skin General skin exam: no rashes or lesions noted Neuro General: patient alert, patient awake, moves all extremities and no focal motor deficits Cognition: normal cognition Speech: speech normal Sensory Exam: no sensory deficits noted Psych Appearance: grossly normal Mental Status: mental status grossly normal Course Vital Signs Vital signs: Vital Signs Temperature 36.2 C L 05/27/20 09:44 Pulse 80 05/27/20 09:44 Respiratory Rate 18 05/27/20 09:44 Blood Pressure 146/76 H 05/27/20 09:44 Pulse Oximetry 98 05/27/20 09:44 Temperature 36.2 C L 05/27/20 09:44 Temperature Source Temporal Artery Scan 05/27/20 09:44 Pulse 80 05/27/20 09:44 Respiratory Rate 18 05/27/20 09:44 Blood Pressure 146/76 H 05/27/20 09:44 Blood Pressure Position Sitting 05/27/20 09:44 Pulse Oximetry 98 05/27/20 09:44 Oxygen Delivery Method Room Air 05/27/20 09:44 Oxygen Flow Rate 0 05/27/20 09:44 Pain Level 9 05/27/20 09:44
[2020-05-31 11:15] LABS: HSV 1 PCR, Varies Positive (Negative); HSV 2 PCR, Varies Negative (Negative); Herpes Source LIP
== END 2020-05-27 11:11 | disposition home or self-care (01) ==
PROVIDERS: Emergency Provider Physician Assistant; PCP Nurse Practitioner Family
DX: K13.79 Other lesions of oral mucosa (principal); H92.02 Otalgia, left ear
CPT/HCPCS: 87529; 99283

== ENCOUNTER 2020-08-24 09:23 | Emergency (ER) | payer MEDICAID, SELFPAY ==
[2020-08-24] VITALS (24 sets, daily range): BP systolic 100–136; BP diastolic 62–87; PULSE 67–92; RESP 1–32; TEMP 36.1–37.6; O2SAT 97–100
[2020-08-24] MEDS: Albuterol/Ipratropium 3 ML UPD VIAL (09:36)
[2020-08-24 09:59] LABS: Source Nasal/Nares
[2020-08-24 10:03] LABS: Abs Immature Grans 0.02 10^3/uL (0.0-0.06); Absolute Basophil Count 0.04 10^3/uL (0.0-0.2); Absolute Eosinophil Count 0.87 10^3/uL (0.0-0.7); Absolute Lymphocyte Count 3.12 10^3/uL (1.2-3.4); Absolute Monocyte Count 0.61 10^3/uL (0.1-0.8); Basophils % 0.4; Immature Grans % 0.2; Lymphocytes % 28.8; MCHC 31.6 % (32.0-36.0); MCV 76.2 fL (80-95); Monocytes % 5.6; Nucleated RBC 0 %; Platelet Count 305 10^3/uL (130-400); RBC 4.99 10^6/uL (3.93-5.22); RDW 15.3 % (11.7-14.6); RDW-SD 41.6 fL; WBC 10.82 10^3/uL (4.4-10.8)
[2020-08-24 10:04] LABS: Absolute Neutrophil Count 6.17 10^3/uL (1.2-6.7)
[2020-08-24 10:34] LABS: D-Dimer 244 ng/mlFEU (<500)
[2020-08-24 10:35] LABS: ALT 21 U/L (14-59); AST 12 U/L (15-37); Alkaline Phosphatase 69 U/L (46-116); Anion Gap 9.6 mmol/L (3-11); BUN 8 mg/dL (7-18); Bilirubin, Total 0.2 mg/dL (0.2-1.0); CO2 24.4 mmol/L (21.0-32.0); CREATININE 0.7 mg/dL (0.55-1.02); Calcium 8.5 mg/dL (8.5-10.1); Chloride 106 mmol/L (98-107); Glucose 96 mg/dL (74-106); Potassium 3.9 mmol/L (3.5-5.1); Sodium 140 mmol/L (136-145); Total Protein 7.4 g/dL (6.4-8.2)
--- NOTE | 2020-08-24 10:40 | DI.RAD_ITS ---
Exam(s) XR PORTABLE CHEST AP EXAM: XR PORTABLE CHEST AP CLINICAL HISTORY: pui, cough, asthma TECHNIQUE: 2D digital imaging was performed. COMPARISON: CR XR PORTABLE CHEST AP from 03/23/2020 FINDINGS: MEDIASTINUM: Normal. HEART: Normal. PULMONARY VASCULATURE: Normal. LUNGS: Clear. PLEURAL SPACE: No pleural effusion or pneumothorax. BONE:Within normal limits for the patient's age. OTHER FINDINGS:Normal. IMPRESSION: No acute pulmonary findings. DATA REPOSITORY: RADIATION DOSE DELIVERED:
[2020-08-24 10:42] LABS: COVID-19 PCR Negative (Negative)
--- NOTE | 2020-08-24 10:47 | W.ED.GENAD ---
Discharge Plan Disposition Patient Disposition: HOME Condition: Stable Discharge Details Clinical Impression: Acute asthma exacerbation Primary Care Provider: Chandni Finn ED Provider: Bruno Rea Home Meds and New Rx's Prescriptions: New prednisone 20 mg tablet 40 mg PO DAILY Qty: 8 RF: 0 Continued albuterol sulfate 90 mcg/actuation HFA aerosol inhaler 1 - 2 puff IH QID PRN (Reason: shortness of breath or wheezing) Qty: 8 RF: 0 albuterol sulfate 2.5 mg/0.5 mL solution for nebulization 5 mg IH Q6H PRN (Reason: bronchospasm) Qty: 30 RF: 0 Advair HFA 115-21 mcg/actuation HFA aerosol inhaler 2 inh INHALATION BID RF: 0 Discharge Instructions Instructions: Asthma (ED), How to Stop Smoking (ED) Additional Instructions: Today you received the [employer] COVID-19 vaccine. This is a single dose vaccine. Please use albuterol for rescue inhaler as prescribed: 2 puffs through the spacer device every 4 hours as needed for shortness of breath and wheeze. If you are requiring more frequent dosing, please return to the [facility] for reassessment. Please take Advair as prescribed twice a day to keep your asthma under control and hopefully prevent flareups. Please contact your primary care physician to arrange follow-up. Call today. Please contact general surgery to arrange follow-up for your gallstones. Return to the ER for any worsening or new concerning symptoms. Stand Alone Forms: Work Release Referrals: [facility] [Provider Group] Chandni Finn [Primary Care Provider] - Discharge Data Discharge Date/Time-TO BE ENTERED AT DEPARTURE: 08/24/20 12:09 Medical Decision Making 25-year-old female with history of asthma, cholelithiasis, smoker here with acute asthma exacerbation. Patient is saturating well. Wheeze improved after nebulized albuterol was administered by respiratory therapy. Patient having issues with medication noncompliance as she ran out of her albuterol inhaler. I will provide her with inhaler and spacer today. Plan to treat with short course of prednisone and have her follow-up with her primary care physician Given right lower back/flank pain. Consider PE. Patient is now saturating well and with no leg swelling or tenderness. D-dimer negative. Chest x-ray was reviewed and interpreted by me to assess for pneumonia. No acute cardiopulmonary disease noted. Covid test negative. Labs otherwise reviewed and LFTs are normal. She does have known cholelithiasis. I will refer her to general surgery. I spent greater than 5 minutes discussing smoking cessation with the patient. She does seem motivated to quit. I have encouraged her to discuss this further with her primary care physician. Patient is interested in COVID-19 vaccination today. She will have difficulty obtaining a second vaccine dose. She has not been vaccinated yet. I discussed risk benefits with the patient of the single dose [employer] vaccine. Patient verbalized understanding and provided informed consent to vaccine. Patient was administered vaccine without complication. HPI General Mode of arrival: ambulatory. Date/Time Provider Initiated Documentation: 08/24/20 09:47. Limitations to Documentation: no limitations. Information obtained by: patient. HPI Narrative: 25-year-old female with history of asthma, cholelithiasis, smoker, here with chief complaint of shortness of breath. Patient notes for the past 3 to 4 days she has had persistent acute asthma exacerbation. She has shortness of breath and wheezing. She notes she ran out of her rescue inhaler. Symptoms are moderate to severe. She has associated cough. No fevers. She is not vaccinated for Covid. Patient also notes some discomfort in her right back that she attributes to vomiting. She does note that she vomits intermittently related to her gallstones. She has no abdominal pain. No chest pain. Related Data Home Medications Medication Instructions Recorded Confirmed albuterol sulfate 1 - 2 puff IH QID PRN #8 gm 05/04/20 08/24/20 albuterol sulfate 5 mg IH Q6H PRN #30 each 05/04/20 08/24/20 Advair HFA 2 inh INHALATION BID 08/24/20 prednisone 40 mg PO DAILY #8 tab 08/24/20 Previous Rx's Medication Instructions Recorded albuterol sulfate 1 - 2 puff IH QID PRN #8 gm 05/04/20 albuterol sulfate 5 mg IH Q6H PRN #30 each 05/04/20 prednisone 40 mg PO DAILY #8 tab 08/24/20 Allergies Allergy/AdvReac Type Severity Reaction Status Date / Time iohexol [From Omnipaque] Allergy Intermediate Itching Unverified 08/24/20 09:27 General Stated Complaint: Nk/Back Pain MARIELLA: 3 Review of Systems Constitutional Constitutional: Denies fever(s) Respiratory Respiratory: Reports as per HPI [facility] Medical History Asthma Cholelithiasis with acute on chronic cholecystitis History of diverticulitis History of sleep disorder Hx of schizophrenia Surgical History No significant past surgical history Social History Smoking/Tobacco Use Status: Current every day Tobacco Type: cigarettes Smoking risk assessment performed?: Yes Alcohol Intake: never Drug use: Occasionally Substance use type: marijuana Details: marijuana: 03/21/19, small pipe Do you feel safe at home: Yes Do you feel safe in your relationship?: Yes Additional Social history: pt. states she is comfortable with Greenlandic but is aware that district sales representative service is available Exam Const General: cooperative Orientation: alert and awake HENMT Head: normocephalic and atraumatic Mouth: moist mucous membranes Eyes Conjunctivae: normal conjunctivae Sclera: normal sclerae EOM: EOM intact bilaterally Neck Neck: trachea midline Resp Effort & Inspection: tachypneic Auscultation: no rales, no rhonchi and wheezes expiratory wheezes Cardio Jugular venous pressure: no JVD Rate: regular rate and not tachycardic Rhythm: regular rhythm GI Palpation: soft, not firm, no guarding, no masses, not rigid and nontender Skin General skin exam: no rashes or lesions noted Neuro General: patient alert, patient awake, patient oriented x3 and tone normal Extrem General: no calf tenderness and no edema Psych Appearance: grossly normal Mental Status: mental status grossly normal Speech and Movement: speech and movement normal Course Vital Signs Vital signs: Vital Signs Temperature 37.6 C H 08/24/20 09:20 Pulse 90 08/24/20 09:20 Blood Pressure 100/62 08/24/20 09:20 Pulse Oximetry 99 08/24/20 09:20 Temperature 37.6 C H 08/24/20 09:20 Temperature Source Temporal Artery Scan 08/24/20 09:20 Pulse 88 08/24/20 09:44 Respiratory Rate 26 H 08/24/20 10:01 Respiratory Effort Incrsd Work of Breathing 08/24/20 10:01 Respiratory Depth Normal 08/24/20 10:01 Respiratory Pattern Normal 08/24/20 10:01 Blood Pressure 100/62 08/24/20 09:20 Blood Pressure Position Supine 08/24/20 09:20 Pulse Oximetry 99 08/24/20 09:44 Oxygen Delivery Method Room Air 08/24/20 09:36 Oxygen Flow Rate 0 08/24/20 09:36 Pain Level 8 08/24/20 10:05 Lab/Test Results Lab/Test Results: Laboratory Tests Range/Units 08/24/20 08/24/20 08/24/20 09:50 09:50 09:50 WBC (4.4-10.8) 10^3/uL 10.82 H RBC (3.93-5.22) 10^6/uL 4.99 Hgb (11.2-15.7) g/dL 12.0 Hct (36.0-46.0) % 38.0 MCV (80-95) fL 76.2 L MCH (27.0-33.0) pg 24.0 L MCHC (32.0-36.0) % 31.6 L RDW (11.7-14.6) % 15.3 H Plt Count (130-400) 10^3/uL 305 MPV (8.0-11.0) fL 10.0 Immature Gran % 0.2 Neutrophils % 57.0 Lymphocytes % 28.8 Monocytes % 5.6 Eosinophils % 8.0 Basophils % 0.4 Nucleated RBC % % 0 Absolute Neutrophils (1.2-6.7) 10^3/uL 6.17 Absolute Lymphocytes (1.2-3.4) 10^3/uL 3.12 Absolute Monocytes (0.1-0.8) 10^3/uL 0.61 Absolute Eosinophils (0.0-0.7) 10^3/uL 0.87 H Absolute Basophils (0.0-0.2) 10^3/uL 0.04 D-Dimer (<500) ng/mlFEU 244 Sodium (136-145) mmol/L 140 Potassium (3.5-5.1) mmol/L 3.9 Chloride (98-107) mmol/L 106 Carbon Dioxide (21.0-32.0) mmol/L 24.4 Anion Gap (3-11) mmol/L 9.6 BUN (7-18) mg/dL 8 Creatinine (0.55-1.02) mg/dL 0.7 Estimated GFR/1.73 m2 (mL/min/1.73m2) >= 60.00 Glucose (74-106) mg/dL 96 Calcium (8.5-10.1) mg/dL 8.5 Total Bilirubin (0.2-1.0) mg/dL 0.2 AST (15-37) U/L 12 L ALT (14-59) U/L 21 Alkaline Phosphatase (46-116) U/L 69 Total Protein (6.4-8.2) g/dL 7.4 Albumin (3.4-5.0) g/dL 3.0 L COVID-19 Source SARS-CoV-2 (PCR) (Negative) Range/Units 08/24/20 09:55 WBC (4.4-10.8) 10^3/uL RBC (3.93-5.22) 10^6/uL Hgb (11.2-15.7) g/dL Hct (36.0-46.0) % MCV (80-95) fL MCH (27.0-33.0) pg MCHC (32.0-36.0) % RDW (11.7-14.6) % Plt Count (130-400) 10^3/uL MPV (8.0-11.0) fL Immature Gran % Neutrophils % Lymphocytes % Monocytes % Eosinophils % Basophils % Nucleated RBC % % Absolute Neutrophils (1.2-6.7) 10^3/uL Absolute Lymphocytes (1.2-3.4) 10^3/uL Absolute Monocytes (0.1-0.8) 10^3/uL Absolute Eosinophils (0.0-0.7) 10^3/uL Absolute Basophils (0.0-0.2) 10^3/uL D-Dimer (<500) ng/mlFEU Sodium (136-145) mmol/L Potassium (3.5-5.1) mmol/L Chloride (98-107) mmol/L Carbon Dioxide (21.0-32.0) mmol/L Anion Gap (3-11) mmol/L BUN (7-18) mg/dL Creatinine (0.55-1.02) mg/dL Estimated GFR/1.73 m2 (mL/min/1.73m2) Glucose (74-106) mg/dL Calcium (8.5-10.1) mg/dL Total Bilirubin (0.2-1.0) mg/dL AST (15-37) U/L ALT (14-59) U/L Alkaline Phosphatase (46-116) U/L Total Protein (6.4-8.2) g/dL Albumin (3.4-5.0) g/dL COVID-19 Source Nasal/nares SARS-CoV-2 (PCR) (Negative) Negative
[2020-08-24] MEDS: Albuterol HFA 8 GM 60 PUFF INH IH (11:05)
[2020-08-24] MEDS: Inhaler, Assist Device 1 EACH MC (11:06)
--- NOTE | 2020-08-24 11:06 | RESPIRATORY ---
08/24/20-Pt arrived via [facility] with complaint of dry, non-productive cough with and right , lower back pain. Pt was found to have Bilat. Ant. upper exp wheeze. Aminstered one Duoneb upd that resolved. It is apparent Pt is not taking her Advair hfa as instructed and has run out of emergency MDI. A Pt instruction sheet with visual cues was prepared for and reviewed with Pt.at bedside.
[2020-08-24] MEDS: predniSONE 20 MG TAB 40 MG PO (11:21)
== END 2020-08-24 12:09 | disposition home or self-care (01) ==
PROVIDERS: Emergency Provider Student in an Organized Health Care Education/Training Program; PCP Nurse Practitioner Family
DX: M54.5 Low back pain (principal); J45.901 Unspecified asthma with (acute) exacerbation; F17.210 Nicotine dependence, cigarettes, uncomplicated; Z03.818 Encounter for observation for suspected exposure to other biological agents ruled out
CPT/HCPCS: 36415; 80053; 87635; 90471; 94640; 96372; 99284; 99406; 71045; 85025; 85379; J7512; J7620

== ENCOUNTER 2020-08-27 06:32 | Emergency (ER) | payer MEDICAID, SELFPAY ==
[2020-08-27 06:32] VITALS: BP 128/86; PULSE 98; RESP 20; TEMP 36.8; O2SAT 99
--- NOTE | 2020-08-27 06:35 | W.ED.GENAD ---
Discharge Plan Disposition Patient Disposition: HOME Condition: Stable Discharge Details Clinical Impression: Back pain Primary Care Provider: Chandni Finn ED Provider: Brenton Walsh Home Meds and New Rx's Prescriptions: New diazepam [Valium] 5 mg tablet 5 mg PO TID PRN (Reason: muscle spasm) Qty: 20 RF: 0 Continued albuterol sulfate 90 mcg/actuation HFA aerosol inhaler 1 - 2 puff IH QID PRN (Reason: shortness of breath or wheezing) Qty: 8 RF: 0 albuterol sulfate 2.5 mg/0.5 mL solution for nebulization 5 mg IH Q6H PRN (Reason: bronchospasm) Qty: 30 RF: 0 Advair HFA 115-21 mcg/actuation HFA aerosol inhaler 2 inh INHALATION BID RF: 0 Discharge Instructions Instructions: Muscle Spasm (ED) Additional Instructions: follow up with your primary care provider within a week if symptoms continue you can take 1000mg tylenol and 600mg ibuprofen every 6 hours for pain as needed if you take the valium do not drink alcohol or drive if you feel more ill, have fevers, severe worsening pain or new pain such as abdomen pain return to the emergency department Stand Alone Forms: Work Release Medical Decision Making <Zac Cancino MD - Last Filed: 08/27/20 07:00> Patient presenting with right upper lumbar pain which she had previously on last visit but now stating it is worse. Pain seems to be lower than one would consider for PE. Previous D-dimer negative and today able to PERC out. Vital signs are normal. Pain is worse with movement or coughing and with palpation. Suspect this is musculoskeletal in nature. Will recheck labs and obtain urinalysis. Treat with IM ketorolac and lidocaine patch. Medical Records Medical records reviewed: Yes I reviewed the patient's medical records. Lab Data Lab results reviewed: Yes I reviewed the patient's lab results. <Brenton Walsh MD - Last Filed: 08/27/20 08:16> patients labs show no acute changes from baseline, still has pain that is minimally improved. When she points to where she hurts it is right lateral to the midline spine, below the thorax. No abdomen tenderness. Symptoms seem most likely due to muscle strain or spasm. Given lack of change in lfts or leukocytosis and no abdomen tenderness doubt cholecystitis. PERC negative so doubt PE. Will try valium for muscle relaxation and reassess. pt now sleeping and awakens easily to voice. Feels much improved after valium, still no abdomen tenderness. Doubt kidney stone given pain that did not start suddenly and improved with muscle relaxer, do not feel ct indicated and has had numerous ct's over the past few years and concern for accumulating radiation doses. She feels comfortable with d/c and will follow up with her pcp and return precautions given HPI <Zac Cancino MD - Last Filed: 08/27/20 07:00> General Mode of arrival: EMS. Date/Time Provider Initiated Documentation: 08/27/20 06:40. Limitations to Documentation: no limitations. Information obtained by: patient, RN notes reviewed and old records reviewed. HPI Narrative: Patient presents to the ED by ambulance with complaint of right upper lumbar pain going into the right flank. She was seen here last week for asthma exacerbation and cough. She had this pain then with negative chest x-ray, negative D-dimer, unremarkable urine. She reports pain is worse. She is unable to sleep. Pain is worse with any type of movement or cough. She has no chest pain and her breathing is much better. Her cough is also better. No fever. Mild nausea but no vomiting or diarrhea. No abdominal pain. No leg pain or leg swelling. No prior history of blood clot. Has been using acetaminophen without with. Related Data Home Medications Medication Instructions Recorded Confirmed albuterol sulfate 1 - 2 puff IH QID PRN #8 gm 05/04/20 08/27/20 albuterol sulfate 5 mg IH Q6H PRN #30 each 05/04/20 08/27/20 Advair HFA 2 inh INHALATION BID 08/24/20 08/27/20 diazepam [Valium] 5 mg PO TID PRN #20 tab 08/27/20 Previous Rx's Medication Instructions Recorded albuterol sulfate 1 - 2 puff IH QID PRN #8 gm 05/04/20 albuterol sulfate 5 mg IH Q6H PRN #30 each 05/04/20 diazepam [Valium] 5 mg PO TID PRN #20 tab 08/27/20 Allergies Allergy/AdvReac Type Severity Reaction Status Date / Time iohexol [From Omnipaque] Allergy Intermediate Itching Unverified 08/27/20 06:39 General MARIELLA: 3 Review of Systems <Zac Cancino MD - Last Filed: 08/27/20 07:00> Narrative: As documented in HPI otherwise negative as below. Const: no fever, chills, weakness Resp: no cough, SOB, pleuritic pain CV: no CP, diaphoresis, edema, syncope GI: no abdominal pain, vomiting, diarrhea Neuro: no headache, numbness, focal weakness, confusion PFSH <Zac Cancino MD - Last Filed: 08/27/20 07:00> Medical History Asthma Cholelithiasis with acute on chronic cholecystitis History of diverticulitis History of sleep disorder Hx of schizophrenia Surgical History No significant past surgical history Social History Smoking/Tobacco Use Status: Current every day Tobacco Type: cigarettes Smoking risk assessment performed?: Yes Alcohol Intake: never Drug use: Occasionally Substance use type: marijuana Details: marijuana: 03/21/19, small pipe Do you feel safe at home: Yes Do you feel safe in your relationship?: Yes Additional Social history: pt. states she is comfortable with Hungarian but is aware that qualitative researcher service is available Exam <Zac Cancino MD - Last Filed: 08/27/20 07:00> Narrative Exam Narrative: Const: Obese female in NAD, but uncomfortable with movement. HEENT: NC/AT. Normal facial exam. Eyes: Normal conjunctiva and sclera. Neck: Supple. Trachea midline. Lungs: Normal respiratory effort. Lungs are clear. Cor: RRR without murmur/gallop. Good radial pulses. GI: Soft. NT/ND. No guarding or rebound. Back: Right upper lumbar tenderness palpation and pain with movement. No midline tenderness Neuro: A+O x 3. Normal speech, mentation, gait. Cranial nerves II - XII grossly intact. No gross motor or sensory deficit. Ext: No C/C/E. No calf tenderness. Skin: Warm and dry without rash. Sign Out <Zac Cancino MD - Last Filed: 08/27/20 07:00> Sign Out Data: Sign Out Comment: Pending CMP results and reevaluation after medications Last updated by Zac Cancino MD at 08/27/20 07:26
[2020-08-27 06:54] LABS: Bilirubin Negative (Negative); Blood Small (Negative); Clarity Clear (Clear); Glucose Negative (Negative); Ketones Negative (Negative); Leukocyte Esterase Negative (Negative); Nitrite Negative (Negative); Specific Gravity >= 1.030 (1.005-1.025); Urobilinogen 0.2 EU/dL (Up TO 0.2); pH 5.5 (5-8)
[2020-08-27 07:07] LABS: Abs Immature Grans 0.02 10^3/uL (0.0-0.06); Absolute Basophil Count 0.04 10^3/uL (0.0-0.2); Absolute Eosinophil Count 0.88 10^3/uL (0.0-0.7); Absolute Monocyte Count 0.88 10^3/uL (0.1-0.8); Absolute Neutrophil Count 4.91 10^3/uL (1.2-6.7); Basophils % 0.4; Eosinophils % 9.3; HCT 36.9 % (36.0-46.0); HGB 11.6 g/dL (11.2-15.7); Immature Grans % 0.2; Lymphocytes % 28.6; MCH 23.8 pg (27.0-33.0); MCHC 31.4 % (32.0-36.0); MCV 75.8 fL (80-95); MPV 9.7 fL (8.0-11.0); Monocytes % 9.3; Neutrophils % 52.2; Nucleated RBC 0 %; Platelet Count 268 10^3/uL (130-400); RBC 4.87 10^6/uL (3.93-5.22); RDW 15.3 % (11.7-14.6); WBC 9.43 10^3/uL (4.4-10.8)
[2020-08-27 07:09] LABS: Epithelial Cells Many HPF (Negative); WBC 0-2 HPF (0-5)
[2020-08-27 07:10] LABS: Bacteria Few HPF (Negative); C & S Indicated? No/Sq. Contamination; Casts Negative LPF (Negative); Crystals Negative HPF (Negative); Mucus Trace (Negative)
[2020-08-27 07:22] LABS: ALT 17 U/L (14-59); AST 11 U/L (15-37); Albumin 2.8 g/dL (3.4-5.0); Alkaline Phosphatase 63 U/L (46-116); Anion Gap 7.8 mmol/L (3-11); BUN 10 mg/dL (7-18); Bilirubin, Total 0.1 mg/dL (0.2-1.0); CO2 26.2 mmol/L (21.0-32.0); CREATININE 0.7 mg/dL (0.55-1.02); Calcium 8.4 mg/dL (8.5-10.1); Chloride 105 mmol/L (98-107); Glucose 97 mg/dL (74-106); Potassium 3.6 mmol/L (3.5-5.1); Sodium 139 mmol/L (136-145); Total Protein 6.9 g/dL (6.4-8.2)
[2020-08-27] MEDS: Lidocaine 5% Patch 1 PATCH TP (07:33)
[2020-08-27] MEDS: Ketorolac 30 MG/ML VIAL IVP (07:33)
[2020-08-27] MEDS: diazePAM 10 MG/2 ML SYR 5 MG IVP (07:53)
[2020-08-27 08:00] VITALS: PULSE 75; RESP 31; O2SAT 93
[2020-08-27 08:10] VITALS: PULSE 79; O2SAT 94
[2020-08-27 08:20] VITALS: O2SAT 95
== END 2020-08-27 08:31 | disposition home or self-care (01) ==
PROVIDERS: Emergency Medicine; Emergency Provider Emergency Medicine; PCP Nurse Practitioner Family
DX: M54.5 Low back pain (principal)
CPT/HCPCS: 80053; 81025; 96374; 96375; 99284; 81003; 81015; 85025; 99283; J1885; J3360

== ENCOUNTER 2020-08-29 14:29 | Emergency (ER) | payer MEDICAID, SELFPAY ==
[2020-08-29 14:29] VITALS: BP 134/90; PULSE 89; RESP 22; TEMP 36.6; O2SAT 94
--- NOTE | 2020-08-29 14:45 | DI.CT_ITS ---
Exam(s) CT RENAL COLIC WO EXAM: CT RENAL COLIC WO CLINICAL HISTORY: right flank pain. TECHNIQUE: Imaging Protocol: Axial computed tomography images with coronal and sagittal reformatted images were created and reviewed CONTRAST MATERIAL: Intravenous: none Oral: None COMPARISON: CT CT RENAL COLIC WO from 10/06/2019 FINDINGS: VISUALIZED LUNG BASES: There is some ground-glass infiltrate in the medial left lower lobe posterior basal segment.. Mild subpleural increased markings are also noted in the inferior aspect of the righ t middle lobe subpleural location. There are no pleural effusions ABDOMEN: There is no ascites. LIVER: There are no obvious focal hepatic lesions evident of this noninfused study. GALLBLADDER/BILIARY: There are gallstones noted, both layering tiny scalp ally as well as a larger no ncalcified probable gallstone measuring approximately 13 x 13 millimeters. These gallbladder wall is not edematous. CBD is not dilated. PANCREAS: No evidence of pancreatic mass nor dilatation of the pancreatic duct. SPLEEN: Spleen is not enlarged. No obvious intrasplenic lesions. ADRENALS: There are no significant adrenal masses. KIDNEYS:No cysts evident. No solid renal masses. No calculi nor hydronephrosis. . ABDOMINAL AORTA: Abdominal aorta is not enlarged. LYMPH NODES: There is no retroperitoneal nor paraaortic adenopathy. ABDOMINAL WALL: No evidence of significant anterior abdominal wall hernia. GI: There is no evidence of bowel obstruction, free air, nor abscess. PELVIS: LYMPH NODES: No intrapelvic adenopathy. Shoddy lymph nodes in both inguinal regions noted. GI: No evidence of appendicitis.No evidence of sigmoid diverticulitis. URINARY BLADDER: Bladder is collapsed. REPRODUCTIVE: Uterus and adnexal regions appear age-appropriate. No free fluid in the pelvis noted. OSSEOUS: No significant osseous lesions. IMPRESSION: 1. Compared to the prior CT scan of September 2019 there is cholelithiasis again noted without evidence of obvious acute cholecystitis nor dilatation of the biliary tree. 2. Benign-appearing shoddy lymph nodes are noted in both inguinal regions. Similar to previous. No gross lymphadenopathy in the abdomen and pelvis. There is also no ascites. 3. Mild ground-glass infiltrate noted in the visualized left lower lobe posterior basal segment left lower lobe. There are no pleural effusions. RADIATION DOSE DELIVERED: 1,177.22mGy.cm Total DLP DATA REPOSITORY: All CT scans at this facility are submitted to the National Radiology Data Registry (NRDR) Dose Index Registry (DIR) with the [employer] (ACR). RADIATION OPTIMIZATION: All CT scans at this facility use at least one of these dose optimization te chniques: automated exposure control; mA and/or kV adjustment per patient size (includes targeted exa ms where dose is matched to clinical indication); or iterative reconstruction.
--- NOTE | 2020-08-29 14:51 | W.ED.GENAD ---
Discharge Plan Disposition Patient Disposition: HOME Discharge Details Clinical Impression: Right-sided back pain Primary Care Provider: Chandni Finn ED Provider: Bruno Rea Home Meds and New Rx's Prescriptions: Continued albuterol sulfate 90 mcg/actuation HFA aerosol inhaler 1 - 2 puff IH QID PRN (Reason: shortness of breath or wheezing) Qty: 8 RF: 0 albuterol sulfate 2.5 mg/0.5 mL solution for nebulization 5 mg IH Q6H PRN (Reason: bronchospasm) Qty: 30 RF: 0 Advair HFA 115-21 mcg/actuation HFA aerosol inhaler 2 inh INHALATION BID RF: 0 diazepam [Valium] 5 mg tablet 5 mg PO TID PRN (Reason: muscle spasm) Qty: 20 RF: 0 Discharge Instructions Instructions: Muscle Spasm (ED) Additional Instructions: Please take medications as prescribed. Please take ibuprofen over the counter. Take 600mg by mouth every 6 hours as needed for pain. Please contact your primary care physician to arrange follow-up. Call tomorrow. Return to the ER for any worsening or new concerning symptoms. Referrals: Chandni Finn [Primary Care Provider] - Discharge Data Discharge Date/Time-TO BE ENTERED AT DEPARTURE: 08/29/20 19:20 Medical Decision Making 1500 --25-year-old female with history of renal stones, here with 4 days of persistent worsening right flank pain. Abdominal exam is benign. She does have CVA tenderness on the right. Lungs clear to auscultation with no chest pain or shortness of breath. Urinalysis from 08/27/2020 was reviewed and she did have 5-10 RBCs. Plan to obtain CT of the abdomen pelvis to assess for renal stone. Will give Toradol 30 mg IV. IVF bolus. 1545 --CT of the abdomen pelvis was interpreted by radiology: Cholelithiasis- gallstones are seen within the dependent aspect of the gallbladder. No gallbladder wall thickening or pericholecystic fluid is present. Appendix is well visualized and appears normal. Intraperitoneal space is unremarkable with no free air and no significant fluid collection. The ovaries appear normal. Kidneys and ureters noted to be normal with no hydronephrosis. Patient was reexamined and noted to be much more comfortable. On palpation of her right mid to lower back she has focal tenderness over paraspinal muscles. There is no rash present. I suspect pain is musculoskeletal etiology. I will place lidocaine patch. Plan to reassess. -- Patient reassessed and had recurrent muscle pain and spasm after coughing. Will give valium and tylenol. 1916 -- Patient reassessed: pain improved. Plan for discharge with outpatient follow-up. Disposition decision was made weighing the risks and benefits of hospitalization versus outpatient treatment, the risk for further decompensation, and the patient's wishes. The patient was stable and requested discharge. Prior to discharge, my usual and customary return precautions were reviewed with the patient - this included follow-up instructions and reason to return to the emergency department if condition worsens, does not improve as expected, or other new concerns arise. HPI General Mode of arrival: ambulatory. Date/Time Provider Initiated Documentation: 08/29/20 14:42. Limitations to Documentation: no limitations. Information obtained by: patient. HPI Narrative: 25-year-old female with history of asthma, renal stones obesity, here with chief complaint of right flank pain. Patient notes 4 days of persistent right flank pain. Pain has seemed to initially start high in her flank and has migrated inferiorly. Pain is severe, now constant, worse with movement. No associated fever. No associated dysuria. Patient has no chest pain or shortness of breath. Related Data Home Medications Medication Instructions Recorded Confirmed albuterol sulfate 1 - 2 puff IH QID PRN #8 gm 05/04/20 08/29/20 albuterol sulfate 5 mg IH Q6H PRN #30 each 05/04/20 08/29/20 Advair HFA 2 inh INHALATION BID 08/24/20 08/29/20 diazepam [Valium] 5 mg PO TID PRN #20 tab 08/27/20 08/29/20 Previous Rx's Medication Instructions Recorded albuterol sulfate 1 - 2 puff IH QID PRN #8 gm 05/04/20 albuterol sulfate 5 mg IH Q6H PRN #30 each 05/04/20 diazepam [Valium] 5 mg PO TID PRN #20 tab 08/27/20 Allergies Allergy/AdvReac Type Severity Reaction Status Date / Time iohexol [From Omnipaque] Allergy Intermediate Itching Unverified 08/29/20 14:33 General Stated Complaint: FlankPain MARIELLA: 3 Review of Systems All systems reviewed & are unremarkable except as noted in HPI and below Constitutional Constitutional: Denies fever(s) Cardiovascular Cardiovascular: Reports as per HPI Respiratory Respiratory: Reports as per HPI Gastrointestinal Gastrointestinal: Reports abdominal pain [facility] Medical History Asthma Cholelithiasis with acute on chronic cholecystitis History of diverticulitis History of sleep disorder Hx of schizophrenia Surgical History No significant past surgical history Social History Smoking/Tobacco Use Status: Current every day Tobacco Type: cigarettes Smoking risk assessment performed?: Yes Alcohol Intake: never Drug use: Occasionally Substance use type: marijuana Details: marijuana: 03/21/19, small pipe Do you feel safe at home: Yes Do you feel safe in your relationship?: Yes Additional Social history: pt. states she is comfortable with Croatian but is aware that superintendent custodian janitor service is available Exam Const General: cooperative and uncomfortable Nutritional Appearance: obese Orientation: alert and awake HENMT Mouth: moist mucous membranes Eyes Conjunctivae: normal conjunctivae Sclera: normal sclerae Neck Neck: trachea midline Resp Auscultation: clear to auscultation bilaterally, no rales, no rhonchi and no wheezes Cardio Rate: regular rate and not tachycardic Rhythm: regular rhythm GI Palpation: soft, not firm, no guarding, no masses, not rigid and nontender Skin General skin exam: no rashes or lesions noted Neuro General: patient alert, patient awake, patient oriented x3 and tone normal Extrem General: no edema Psych Appearance: grossly normal Mental Status: mental status grossly normal Course Vital Signs Vital signs: Vital Signs Temperature 36.6 C 08/29/20 14:29 Pulse 89 08/29/20 14:29 Respiratory Rate 22 08/29/20 14:29 Blood Pressure 134/90 08/29/20 14:29 Pulse Oximetry 94 08/29/20 14:29 Temperature 36.6 C 08/29/20 14:29 Temperature Source Oral 08/29/20 14:29 Pulse 89 08/29/20 14:29 Respiratory Rate 22 08/29/20 14:29 Respiratory Effort Non-Labored 08/29/20 14:34 Blood Pressure 134/90 08/29/20 14:29 Blood Pressure Position Sitting 08/29/20 14:29 Pulse Oximetry 94 08/29/20 14:29 Oxygen Delivery Method Room Air 08/29/20 14:29 Oxygen Flow Rate 0 08/29/20 14:29 Pain Level 10 08/29/20 14:29
[2020-08-29 15:04] LABS: Abs Immature Grans 0.02 10^3/uL (0.0-0.06); Absolute Basophil Count 0.03 10^3/uL (0.0-0.2); Absolute Eosinophil Count 0.92 10^3/uL (0.0-0.7); Absolute Lymphocyte Count 2.54 10^3/uL (1.2-3.4); Absolute Monocyte Count 0.53 10^3/uL (0.1-0.8); Absolute Neutrophil Count 5.82 10^3/uL (1.2-6.7); Basophils % 0.3; Eosinophils % 9.3; HCT 42.3 % (36.0-46.0); HGB 13.5 g/dL (11.2-15.7); Immature Grans % 0.2; MCH 23.8 pg (27.0-33.0); MCHC 31.9 % (32.0-36.0); MCV 74.5 fL (80-95); MPV 9.9 fL (8.0-11.0); Monocytes % 5.4; Nucleated RBC 0 %; Platelet Count 324 10^3/uL (130-400); RBC 5.68 10^6/uL (3.93-5.22); RDW 15.2 % (11.7-14.6); RDW-SD 40.9 fL; WBC 9.86 10^3/uL (4.4-10.8)
[2020-08-29] MEDS: Ketorolac 30 MG/ML VIAL IVP (15:07)
[2020-08-29 15:09] LABS: Bilirubin Small (Negative); Blood Trace-lysed (Negative); Clarity Clear (Clear); Glucose Negative (Negative); Ketones Trace mg/dL (Negative); Leukocyte Esterase Negative (Negative); Nitrite Negative (Negative); Specific Gravity >= 1.030 (1.005-1.025); Urobilinogen 0.2 EU/dL (Up TO 0.2); pH 5.5 (5-8)
[2020-08-29] MEDS: Lactated Ringers 500 ML IV (15:15)
[2020-08-29 15:16] LABS: Epithelial Cells Many HPF (Negative)
[2020-08-29 15:18] LABS: ALT 20 U/L (14-59); AST 14 U/L (15-37); Albumin 3.5 g/dL (3.4-5.0); Alkaline Phosphatase 74 U/L (46-116); Anion Gap 13.2 mmol/L (3-11); BUN 9 mg/dL (7-18); Bilirubin, Total 0.4 mg/dL (0.2-1.0); CO2 22.8 mmol/L (21.0-32.0); CREATININE 0.8 mg/dL (0.55-1.02); Calcium 9.1 mg/dL (8.5-10.1); Chloride 103 mmol/L (98-107); Glucose 84 mg/dL (74-106); Potassium 4.2 mmol/L (3.5-5.1); Sodium 139 mmol/L (136-145); Total Protein 8.5 g/dL (6.4-8.2)
[2020-08-29 15:21] LABS: C & S Indicated? No/Sq. Contamination; Mucus Heavy (Negative)
[2020-08-29 15:24] LABS: Diff Comment Diff Reviewed; Lymphocytes % 25.8; Microcytosis 1+
--- NOTE | 2020-08-29 15:36 | DI.VRAD_ITS ---
PROCEDURE INFORMATION: Exam: CT Abdomen And Pelvis Without Contrast Exam date and time: 08/29/2020 3:08 PM Age: 25 years old Clinical indication: Other: Right flank pain; Prior surgery; Surgery date: 6+ months; Surgery type: Percutaneous nephrolithotomy 2018 TECHNIQUE: Imaging protocol: Computed tomography of the abdomen and pelvis without contrast. Radiation optimization: All CT scans at this facility use at least one of these dose optimization techniques: automated exposure control; mA and/or kV adjustment per patient size (includes targeted exams where dose is matched to clinical indication); or iterative reconstruction. COMPARISON: CT RENAL COLIC WO 10/06/2019 4:34 PM FINDINGS: Liver: Normal. No mass. Gallbladder and bile ducts: Gallstones are seen within the dependent aspect of the gallbladder. No gallbladder wall thickening or pericholecystic fluid is present. Pancreas: Normal. No ductal dilation. Spleen: Normal. No splenomegaly. Adrenal glands: Normal. No mass. Kidneys and ureters: Normal. No hydronephrosis. Stomach and bowel: Unremarkable. No obstruction. No mucosal thickening. Appendix: The appendix is well-visualized and appears normal. Intraperitoneal space: Unremarkable. No free air. No significant fluid collection. Vasculature: Unremarkable. No abdominal aortic aneurysm. Lymph nodes: Unremarkable. No enlarged lymph nodes. Urinary bladder: Unremarkable as visualized. Reproductive: The uterus appears normal. No adnexal masses are seen. The ovaries appear normal. Bones/joints: Unremarkable. No acute fracture. Soft tissues: Morbid obesity is present. IMPRESSION: 1. Cholelithiasis. 2. No acute abnormality. Dictated and Authenticated by: Rob Holder MD. Ordering:GINNY Carr MD
[2020-08-29] MEDS: Lidocaine 5% Patch 1 PATCH TP (15:54)
[2020-08-29 16:11] VITALS: BP 143/85; PULSE 80; RESP 18; O2SAT 94
[2020-08-29] MEDS: diazePAM 5 MG TAB PO (17:08)
[2020-08-29] MEDS: ACETAMINOPHEN 1,000 MG/100 ML BTL 400 MG IVPB (17:09)
[2020-08-29 17:54] VITALS: BP 149/92; PULSE 80; RESP 18; O2SAT 94
[2020-08-29 19:09] VITALS: BP 144/80; PULSE 95; RESP 18; O2SAT 90
== END 2020-08-29 19:20 | disposition home or self-care (01) ==
PROVIDERS: Emergency Provider Student in an Organized Health Care Education/Training Program; PCP Nurse Practitioner Family
DX: R10.9 Unspecified abdominal pain (principal); M54.9 Dorsalgia, unspecified
CPT/HCPCS: 80053; 81025; 96361; 96374; 96375; 99284; 74176; 81003; 81015; 85025; 99283; J0131; J1885

== ENCOUNTER 2020-09-01 05:34 | Emergency (ER) | payer MEDICAID, SELFPAY ==
[2020-09-01] VITALS (13 sets, daily range): BP systolic 137–148; BP diastolic 71–80; PULSE 90–102; RESP 8–22; TEMP 36.2; O2SAT 97–100
--- NOTE | 2020-09-01 05:59 | W.ED.GENAD ---
Discharge Plan Disposition Patient Disposition: HOME Condition: Good Discharge Details Clinical Impression: Asthma Primary Care Provider: Chandni Finn ED Provider: Davin Beard Home Meds and New Rx's Prescriptions: Continued albuterol sulfate 90 mcg/actuation HFA aerosol inhaler 1 - 2 puff IH QID PRN (Reason: shortness of breath or wheezing) Qty: 8 RF: 0 albuterol sulfate 2.5 mg/0.5 mL solution for nebulization 5 mg IH Q6H PRN (Reason: bronchospasm) Qty: 30 RF: 0 diazepam [Valium] 5 mg tablet 5 mg PO TID PRN (Reason: muscle spasm) Qty: 20 RF: 0 Discharge Instructions Instructions: Asthma (ED) Additional Instructions: Please use the albuterol inhaler and the spacer as directed. Take 2 puffs every 4-6 hours as needed. If you notice any worsening of your symptoms, or any new symptoms such as vomiting, diarrhea, fever, chills, shortness of breath, chest pain, numbness, weakness, or fainting , please return immediately to the emergency department for reevaluation. Please follow up with your primary care provider as soon as possible for reassessment and reevaluation. As always, it was a pleasure participating in your medical care today. Referrals: Chandni Finn [Primary Care Provider] - Medical Decision Making 25-year-old female with a past medical history of asthma presents today for asthma. Patient comes in with her significant other who had a seizure. She states that when she saw him having a seizure it got her concerned, and she began having rapid breathing. She was given a DuoNeb treatment by EMS on the way over, this notably improved her symptoms. She does smoke tobacco regularly as well as intermittent marijuana. She denies any fever or chills or cough. She states that this feels like her normal asthma attack. No other complaints at this time. Of note the patient does state that she does not have an inhaler at home at this time. She does have a primary care provider. Physical exam demonstrates mild wheezes in her right lower lung mulligan, she has good oxygenation. No significant tachycardia. Patient remains hemodynamically stable. Will give breathing treatment, and inhaler for home use. No indication for chest x-ray at this time as there is no clinical evidence of infection. Because of her asthma exacerbation is likely the continued tobacco and intermittent marijuana use, in conjunction with the stress of the current home situation with her significant other and his seizure that he had this evening. 6:40 AM Patient is feeling much better after breathing treatments, repeat exam shows complete resolution of wheezes. Patient feels well and would like to go home. She will be given albuterol inhaler and spacer for home use. I have extensively reviewed the treatment plan and discharge instructions with the patient. I have addressed all patient concerns at this time. The patient was made aware of what symptoms to monitor for that would warrant a return to the emergency department. Discussed the plan with the patient, they demonstrate verbal understanding and agreement with our assessment and plan at this time. The documentation in this chart was dictated using [employer] dictation software. Please excuse any dictation errors. HPI General Date/Time Provider Initiated Documentation: 09/01/20 05:51. HPI Narrative: 25-year-old female with a past medical history of asthma presents today for asthma. Patient comes in with her significant other who had a seizure. She states that when she saw him having a seizure it got her concerned, and she began having rapid breathing. She was given a DuoNeb treatment by EMS on the way over, this notably improved her symptoms. She does smoke tobacco regularly as well as intermittent marijuana. She denies any fever or chills or cough. She states that this feels like her normal asthma attack. No other complaints at this time. Of note the patient does state that she does not have an inhaler at home at this time. She does have a primary care provider. Related Data Home Medications Medication Instructions Recorded Confirmed albuterol sulfate 1 - 2 puff IH QID PRN #8 gm 05/04/20 09/01/20 albuterol sulfate 5 mg IH Q6H PRN #30 each 05/04/20 09/01/20 diazepam [Valium] 5 mg PO TID PRN #20 tab 08/27/20 09/01/20 Previous Rx's Medication Instructions Recorded albuterol sulfate 1 - 2 puff IH QID PRN #8 gm 05/04/20 albuterol sulfate 5 mg IH Q6H PRN #30 each 05/04/20 diazepam [Valium] 5 mg PO TID PRN #20 tab 08/27/20 Allergies Allergy/AdvReac Type Severity Reaction Status Date / Time iohexol [From Omnipaque] Allergy Intermediate Itching Unverified 09/01/20 06:07 General MARIELLA: 3 Review of Systems All systems reviewed & are unremarkable except as noted in HPI and below PFSH Medical History Asthma Cholelithiasis with acute on chronic cholecystitis History of diverticulitis History of sleep disorder Hx of schizophrenia Surgical History No significant past surgical history Social History Smoking/Tobacco Use Status: Current every day Tobacco Type: cigarettes Smoking risk assessment performed?: Yes Alcohol Intake: never Drug use: Occasionally Substance use type: marijuana Details: marijuana: 03/21/19, small pipe Do you feel safe at home: Yes Do you feel safe in your relationship?: Yes Additional Social history: pt. states she is comfortable with Argentine but is aware that [employer] cloud consulting architect service is available Exam Narrative Exam Narrative: 1.Const: Well-nourished, Well-developed, appearing stated age 2.Eyes: PERRL, no conjunctival injection, and symmetrical lids. 3.ENT: Atraumatic external nose and ears. Moist MM. Neck: Symmetric, trachea midline, No thyromegaly. 4.CVS: +S1/S2, No murmurs or gallops. Peripheral pulses 2+ and equal in all extremities. Brisk capillary refill in all extremities. 5.RESP: Unlabored respiratory effort. Mild wheezes, no rhonchi or rales. 6.GI: Soft, Nontender/Nondistended, No hepatosplenomegaly. No guarding or rebound. 7.MSK: Normocephalic/Atraumatic, Extremities w/o deformity or ttp No cyanosis or clubbing, Normal movement of all extremities 8.Skin: Warm, Dry. No rashes or lesions. 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 Sensation grossly intact, no focal neurologic deficits. 10.Psych: (AAO) x3. Appropriate mood and affect
[2020-09-01] MEDS: Albuterol/Ipratropium 3 ML UPD VIAL 6 ML UPD (06:13)
[2020-09-01] MEDS: Albuterol HFA 8 GM 60 PUFF INH IH (06:17)
[2020-09-01] MEDS: Inhaler, Assist Device 1 EACH MC (06:18)
== END 2020-09-01 06:57 | disposition home or self-care (01) ==
PROVIDERS: Emergency Provider Student in an Organized Health Care Education/Training Program; PCP Nurse Practitioner Family
DX: J45.909 Unspecified asthma, uncomplicated (principal)
CPT/HCPCS: 94640; 99283; J7620

== ENCOUNTER 2020-10-23 07:20 | Emergency (ER) | payer MEDICAID, SELFPAY ==
[2020-10-23 07:20] VITALS: BP 129/77; PULSE 112; TEMP 36.5; O2SAT 100
--- NOTE | 2020-10-23 07:23 | ED.GENADUL_ITS ---
Discharge Plan Disposition Patient Disposition: HOME Condition: Good Discharge Details Clinical Impression: Asthma Primary Care Provider: Chandni Finn ED Provider: Jack Paul Home Meds and New Rx's Prescriptions: New azithromycin 250 mg tablet See Rx Instructions .ROUTE .COMPLEX Qty: 6 RF: 0 prednisone 20 mg tablet 40 mg PO DAILY 5 Days Qty: 10 RF: 0 Continued albuterol sulfate 90 mcg/actuation HFA aerosol inhaler 1 - 2 puff IH QID PRN (Reason: shortness of breath or wheezing) Qty: 8 RF: 0 albuterol sulfate 2.5 mg/0.5 mL solution for nebulization 5 mg IH Q6H PRN (Reason: bronchospasm) Qty: 30 RF: 0 diazepam [Valium] 5 mg tablet 5 mg PO TID PRN (Reason: muscle spasm) Qty: 20 RF: 0 No Action Advair HFA 115-21 mcg/actuation HFA aerosol inhaler 2 puff INHALATION BID RF: 0 Discharge Instructions Instructions: Asthma (ED) Additional Instructions: Please continue to use your home albuterol as well as your nebulizers as needed. Unfortunately there are no new nebulizers available at this time. Respiratory therapy will get in contact with you at the start of next week for potential availability. If you notice any worsening of your symptoms, or any new symptoms such as vomiting, diarrhea, fever, chills, shortness of breath, chest pain, numbness, weakness, or fainting , please return immediately to the emergency department for reevaluation. Please follow up with your primary care provider as soon as possible for reassessment and reevaluation. As always, it was a pleasure participating in your medical care today. Referrals: Chandni Finn [Primary Care Provider] - Medical Decision Making <Davin Beard DO - Last Filed: 10/23/20 07:32> This is a 25-year-old female with a past medical history of regular tobacco use, asthma, who presents today for shortness of breath. The patient states that she ran out of her inhaler that I gave her 2 months ago and has not been able to refill it. She states that she ran out of it a few weeks ago, and additionally her nebulizer is also broken. She does have medications for her nebulizer though. She states that over the last day or so her wheeze and shortness of breath has notably worsened without having her inhaler. She contacted EMS this morning, was noted to be saturating at 92%, with mild difficulty breathing. She was given 2 DuoNeb's and Solu-Medrol in route. Upon arrival patient's oxygenation was 100%, and she is feeling much better. Patient also admits to mild right-sided flank achiness. She denies any urinary changes. No other complaints at this time. Physical exam demonstrates clear lung sounds, patient is oxygenating at 100%. Minimal right-sided CVA tenderness. At this time symptoms appear consistent with an asthma exacerbation secondary to chronic asthma compounded by medication noncompliance and lack of availability. We will give a albuterol nebulizer improved. We will have respiratory therapy evaluate the potential of replacing the patient home nebulizer. We will get a chest x-ray to rule out pneumonia/infectious cause of her asthma exacerbation. Will monitor closely and reassess. <Jack Paul MD - Last Filed: 10/23/20 08:55> Received signout from Dr. Beard, please see his note regarding initial presentation, exam, plan of care. Patient's urine revealed trace ketones, no evidence of infection. X-ray with mild bibasilar airspace disease suggesting pneumonia and peribronchial cuffing. She is improved. Consistent with bronchitis and bronchospasm. Will place her on a short burst of prednisone as well as antibiotics. She is stable and appropriate for discharge to home. HPI <Davin Beard DO - Last Filed: 10/23/20 07:32> General Date/Time Provider Initiated Documentation: 10/23/20 07:21 . HPI Narrative: This is a 25-year-old female with a past medical history of regular tobacco use, asthma, who presents today for shortness of breath. The patient states that she ran out of her inhaler that I gave her 2 months ago and has not been able to refill it. She states that she ran out of it a few weeks ago, and additionally her nebulizer is also broken. She does have medications for her nebulizer though. She states that over the last day or so her wheeze and shortness of breath has notably worsened without having her inhaler. She contacted EMS this morning, was noted to be saturating at 92%, with mild difficulty breathing. She was given 2 DuoNeb's and Solu-Medrol in route. Upon arrival patient's oxygenation was 100%, and she is feeling much better. Patient also admits to mild right-sided flank achiness. She denies any urinary changes. No other complaints at this time. Related Data Home Medications Medication Instructions Recorded Confirmed albuterol sulfate 1 - 2 puff IH QID PRN #8 gm 05/04/20 10/23/20 albuterol sulfate 5 mg IH Q6H PRN #30 each 05/04/20 10/23/20 diazepam [Valium] 5 mg PO TID PRN #20 tab 08/27/20 10/23/20 azithromycin See Rx Instructions .ROUTE 10/23/20 .COMPLEX #6 tab fluticasone propion-salmeterol 2 puff INHALATION BID 10/23/20 10/23/20 [Advair HFA] prednisone 40 mg PO DAILY 5 Days #10 tab 10/23/20 Previous Rx's Medication Instructions Recorded albuterol sulfate 1 - 2 puff IH QID PRN #8 gm 05/04/20 albuterol sulfate 5 mg IH Q6H PRN #30 each 05/04/20 diazepam [Valium] 5 mg PO TID PRN #20 tab 08/27/20 azithromycin See Rx Instructions .ROUTE 10/23/20 .COMPLEX #6 tab prednisone 40 mg PO DAILY 5 Days #10 tab 10/23/20 Allergies Allergy/AdvReac Type Severity Reaction Status Date / Time iohexol [From Omnipaque] Allergy Intermediate Itching Unverified 10/23/20 07:30 General Stated Complaint: SOB MARIELLA: 3 Review of Systems <Davin Beard DO - Last Filed: 10/23/20 07:32> All systems reviewed & are unremarkable except as noted in HPI and below PFSH <Davin Beard DO - Last Filed: 10/23/20 07:32> Medical History Asthma Cholelithiasis with acute on chronic cholecystitis History of diverticulitis History of sleep disorder Hx of schizophrenia Surgical History No significant past surgical history Social History Smoking/Tobacco Use Status: Current every day Tobacco Type: cigarettes Smoking risk assessment performed?: Yes Alcohol Intake: never Drug use: Daily Substance use type: marijuana Details: marijuana: 03/21/19, small pipe Do you feel safe at home: Yes Do you feel safe in your relationship?: Yes Additional Social history: pt. 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 3.ENT: Atraumatic external nose and ears. Moist MM. Neck: Symmetric, trachea midline, No thyromegaly. 4.CVS: +S1/S2, No murmurs or gallops. Peripheral pulses 2+ and equal in all extremities. Brisk capillary refill in all extremities. 5.RESP: Unlabored respiratory effort. Clear to auscultation bilaterally. No wheezes rales or rhonchi 6.GI: Soft, Nontender/Nondistended, No hepatosplenomegaly. No guarding or rebound. Minimal right CVA tenderness 7.MSK: Normocephalic/Atraumatic, Extremities w/o deformity or ttp No cyanosis or clubbing, Normal movement of all extremities 8.Skin: Warm, Dry. No rashes or lesions. 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 Sensation grossly intact, no focal neurologic deficits. 10.Psych: (AAO) x3. Appropriate mood and affect Course <Davin Beard DO - Last Filed: 10/23/20 07:32> Vital Signs Vital signs: Vital Signs Temperature 36.5 C 10/23/20 07:20 Pulse 112 H 10/23/20 07:20 Blood Pressure 113/100 H 10/23/20 07:20 Pulse Oximetry 100 10/23/20 07:20 Temperature 36.5 C 10/23/20 07:20 Temperature Source Temporal Artery Scan 10/23/20 07:20 Pulse 112 H 10/23/20 07:20 Blood Pressure 113/100 H 10/23/20 07:20 Blood Pressure Position Sitting 10/23/20 07:20 Pulse Oximetry 100 10/23/20 07:20 Oxygen Delivery Method Room Air 10/23/20 07:20 Oxygen Flow Rate 0 10/23/20 07:20 Pain Level 8 10/23/20 07:20 Sign Out <Davin Beard DO - Last Filed: 10/23/20 07:32> Sign Out Data: Sign Out Comment: Ran out of inhaler and nebulizer is broken at home. Asthma exacerbation, improved now. Waiting on chest x-ray and urinalysis for mild right flank pain. Inhaler was given for home use. RT will facilitate nebulizer next week. Last updated by Davin Beard DO at 10/23/20 07:39
[2020-10-23 07:25] VITALS: RESP 22
--- NOTE | 2020-10-23 07:43 | RESPIRATORY ---
Pt presented to the ER via [facility] with SOB. Pt was given 2 updrafts in route and was clear lung sounds with 100% SpO2 upon arrival. Pt stated to RT that she had run out of advair hfa as she had been using every few hours as needed. Pt was educated on proper use of inhalers and when to administer.
[2020-10-23 07:47] LABS: Bilirubin Negative (Negative); Blood Negative (Negative); Clarity Clear (Clear); Glucose Negative (Negative); Ketones Trace mg/dL (Negative); Leukocyte Esterase Negative (Negative); Nitrite Negative (Negative); Specific Gravity 1.025 (1.005-1.025); Urobilinogen 0.2 EU/dL (Up TO 0.2); pH 6.5 (5-8)
--- NOTE | 2020-10-23 07:48 | DI.RAD_ITS ---
Exam(s) XR PORTABLE CHEST AP EXAM: XR PORTABLE CHEST AP CLINICAL HISTORY: cough, sob, asthma TECHNIQUE: 2D digital imaging was performed. COMPARISON: CR XR PORTABLE CHEST AP from 08/24/2020 FINDINGS: LUNGS: Suboptimal pulmonary inflation. Mildly increased densities at the lung bases may represent at electasis versus infiltrates. Mild peribronchial cuffing could indicate airways disease.. No pleura l abnormality seen. HEART: Normal. MEDIASTINUM: Normal. BONES: Unremarkable. IMPRESSION: Question of bibasilar infiltrates versus atelectasis. DATA REPOSITORY: RADIATION DOSE DELIVERED:
--- NOTE | 2020-10-23 08:48 | DI.VRAD_ITS ---
PROCEDURE INFORMATION: Exam: XR Chest Exam date and time: 10/23/2020 7:23 AM Age: 25 years old Clinical indication: Pain; On breathing; Patient HX: Cough, SOB, asthma TECHNIQUE: Imaging protocol: XR of the chest. Views: 1 view. COMPARISON: CR XR PORTABLE CHEST AP 08/24/2020 10:37 AM FINDINGS: Lungs: Mild bibasilar airspace disease. Mild peribronchial cuffing. Pleural spaces: No large pleural effusion. Heart/Mediastinum: cardiac silhouette unchanged. Bones/joints: Unremarkable. IMPRESSION: 1. Mild bibasilar airspace disease suggesting pneumonia. 2. Peribronchial cuffing suggesting reactive airways disease. Dictated and Authenticated by: Daniela Anderson MD. Ordering:JOSE Jin MD
[2020-10-23] MEDS: Inhaler, Assist Device 1 EACH MC (09:44)
[2020-10-23] MEDS: Albuterol HFA 8 GM 60 PUFF INH IH (09:44)
[2020-10-23 09:45] VITALS: BP 127/69; PULSE 100; RESP 20; TEMP 36.6; O2SAT 96
== END 2020-10-23 09:34 | disposition home or self-care (01) ==
LOC: ER 08:28
PROVIDERS: Student in an Organized Health Care Education/Training Program; Emergency Provider Emergency Medicine; PCP Nurse Practitioner Family
DX: J45.909 Unspecified asthma, uncomplicated (principal); F17.210 Nicotine dependence, cigarettes, uncomplicated
CPT/HCPCS: 81025; 99283; 71045; 81003